=== PATIENT | male | born 1930 | race Caucasian/White ===

== ENCOUNTER → 2018-02-02 | Outpatient (CLI) | payer MEDICARE ==
[~2018-02-02] MED LIST: ASPIRIN LOW-STR81 MG PO; ASPIRIN325 MG PO; ATORVASTATIN CA20 MG PO; ATROVENT; BAKING SODA; CARDURA2 MG PO; CEFTIN250 MG PO; DOXAZOSIN; DOXAZOSIN PO; FUROSEMIDE40 MG PO; ISOSORBIDE MONO60 MG PO; LISINOPRIL5 MG PO; METOPROLOL SUCC25 MG PO; NITROGLYCERIN0.4 MG SL; OMEPRAZOLE40 MG PO; PLAVIX75 MG PO; XARELTO10 MG PO; Z.0.FUROSEMIDE20 MG PO; Z.0.LIPITOR40 MG PO; Z.0.LISINOPRIL20 MG PO; Z.0.METOPROLOL SUC10 PO; Z.0.OMEPRAZOLE20 M1 PO; Z.0.PLAVIX75 MG PO
--- NOTE | 2018-02-02 13:10 | Diagnostic Imaging Report ---
EXAM: XR CHEST 2 VIEWS DATE: 02/02/2018 12:27 PM INDICATION: Pleural plaque COMPARISON: 06/25/2014 CT chest, 07/16/2014 radiograph FINDINGS: Lines and Tubes: None Heart and Mediastinum: Heart is mildly enlarged. Sternotomy changes and aortic vascular calcifications present. Lungs and Pleura: Stable granuloma left upper lobe. Stable pleural-parenchymal scarring/calcification left lung base. Bones and Soft Tissues: No acute findings. IMPRESSION: 1. Overall stable chronic changes. Signed by: Dr. Markus Gibson MD on 02/02/2018 1:07 PM
== END ==
LOC: RAD 12:15
PROVIDERS: ATTEND Internal Medicine Pulmonary Disease
DX: J92.9 Pleural plaque without asbestos (principal)
CPT/HCPCS: 71046

== ENCOUNTER 2018-04-27 06:06 | Inpatient (IN) | payer MEDICARE ==
[~2018-04-27] VITALS: Ht 152.4 cm; Wt 62.7 kg
[2018-04-27] VITALS (19 sets, daily range): BP systolic 89–137; BP diastolic 55–84
--- OUTSIDE RECORDS SUMMARY | 2018-04-27 06:11 | XMS REPORT ---
Author Author [facility] Address Unknown Phone Unavailable Care Team Providers Care Assembler Production Line Name Role Phone BHUPINDER HOOKER Unavailable Unavailable Payers Payer Name Policy Type Policy Number Effective Date Expiration Date Problems This patient has no known problems. Allergies, Adverse Reactions, Alerts Allergy Name Allergy Type Status Severity Reaction(s) Onset Date Inactive Date Treating Clinician Comments nalbuphine HCl DA Active MO 2014-06-04 00:00:00 morphine DA Active U 2014-06-04 00:00:00 meperidine DA Active U 2014-06-04 00:00:00 Medications This patient has no known medications. Results Test Description Test Time Test Comments Text Results Atomic Results Result Comments CHEST 2 VIEWS 2018-02-02 13:05:00 [place] [address] Patient Name: MARINA MCCORD MR #: [id number] : 1930 Age/Sex: 87/M Req #: [id number] Adm Physician: Ordered by: BHUPINDER HOOKER MD Report #: [id number] Location: [facility] Room/Bed: Procedure: [id number] DX/CHEST 2 VIEWS Exam Date: 02/02/18 Exam Time: 1220 REPORT STATUS: Signed EXAM: XR CHEST 2 VIEWS DATE: 02/02/2018 12:27 PM ASHLEY CATION: Pleural plaque COMPARISON: 06/25/2014 CT chest, 07/16/2014 radiograph FINDINGS: Lines and Tubes: None Heart and Mediastinum: Heart is mildly enlarged. Sternotomy changes and aortic vascular calcifications present. Lungs and Pleura: Stable granuloma left upper lobe. Stable pleural-parenchymal scarring/calcification left lung base. Bones and Soft Tissues: No acute findings. IMPRESSION: 1. Overall stable chronic changes. Signed by: Dr. Markus Gibson MD on 02/02/2018 1:07 PM Dictated By: MARKUS GIBSON MD 1306 Transcribed By: MAIK on 02/02/18 1307 COPY TO: BHUPINDER HOOKER MD
[2018-04-27] MEDS ORDERED: ACETAMINOPHEN 1000 MG/100 ML IV STA (06:17)
[2018-04-27] MEDS: SODIUM CHLORIDE 0.9% 1000ML 1,000 ML IV ONE ×2 (06:25→07:11)
[2018-04-27] MEDS ORDERED: SODIUM CHLORIDE 0.9% 1000ML 1,000 ML ONE ×2 (06:29→10:50)
[2018-04-27] MEDS ORDERED: CEFTRIAXONE SOD 1 GM/NS 50 ML 50 ML IV ONE (06:30)
[2018-04-27 06:39] LABS: BASOPHILS % 0.2 % (0.0-1.0); HEMATOCRIT 52.1 % (38.2-49.6); LYMPHOCYTES # (AUTO) 1.1 (1.0-3.2); LYMPHOCYTES % 5.9 % (18.0-39.1); MEAN CORPUSCULAR HEMOGLOBIN 33.6 pg (28-32); MEAN CORPUSCULAR HGB CONC 34.2 g/dL (31-35); MEAN CORPUSCULAR VOLUME 98.3 fL (81-99); MONOCYTES # (AUTO) 0.6 (0.2-0.8); MONOCYTES % 3.4 % (4.4-11.3); NEUTROPHILS # (AUTO) 16.1 (2.1-6.9); NEUTROPHILS % 89.2 % (38.7-80.0); PLATELET COUNT 204 x10e3/uL (140-360); RED CELL DISTRIBUTION WIDTH 13.3 % (11.7-14.4)
[2018-04-27 06:40] LABS: HEMOGLOBIN 17.8 g/dL (14.0-18.0)
[2018-04-27] MEDS ORDERED: FERROUS SULFAT325 MG PO (06:41)
[2018-04-27] MEDS ORDERED: VALACYCLOVIR1000 MG PO (06:41)
[2018-04-27] MEDS ORDERED: DOXAZOSIN MESYLA2 MG PO (06:41)
[2018-04-27] MEDS ORDERED: OMEPRAZOLE20 M1 PO (06:41)
[2018-04-27] MEDS ORDERED: TYLENOL # 31 EA (06:43)
[2018-04-27] MEDS ORDERED: AZITHROMYCIN 500MG/NS 250 ML 250 ML IV STA (06:50)
--- NOTE | 2018-04-27 06:56 | Diagnostic Imaging Report ---
CHEST SINGLE (PORTABLE), 04/27/2018 6:14 AM Technique: CHEST SINGLE (PORTABLE) Comparison: 02/02/2018 Clinical history: Shortness of breath Findings: See Impression Impression: 1. Stable enlarged cardiomediastinal silhouette status post median sternotomy. 2. Right upper lobe consolidative opacity and patchy right basilar opacity presumably pneumonia. Recommend follow-up to document resolution. 3. Stable left pleural thickening. Signed by: Dr Parisa Stafford MD on 04/27/2018 6:53 AM
[2018-04-27] MEDS ORDERED: SODIUM CHLORIDE 0.9% 1000ML 1,000 ML IV ONE ×2 (07:00→11:00)
--- NOTE | 2018-04-27 07:00 | NUR ---
report given to daquan murphy.
--- NOTE | 2018-04-27 07:00 | NUR ---
received report from off going nurse. patient in room in stretcher. on bipap, has bilateral piv access. johns with core temp sensor and connected to bedside monitor. flu swabs collected, urine sample collected from johns tubing. er in room with patient. ordered for 0.25mg of dig ivp stat. pulled and admin as ordered. patient is awake and alert. no c/o pain at this time. skin warm and dry with blisters to left upper quad and reddness with no open to sacral area. patient follows commands and can express needs. reports he wears upper and lower dentures, lowers are reported to be at home and uppers are in place in mouth. second litre of NS hanging and 1st does of IV abt started. bed down call lightin reach. will continue to monitor.
[2018-04-27 07:04] LABS: INR 1.84; PROTHROMBIN TIME 22.7 seconds (11.9-14.5)
[2018-04-27 07:05] LABS: PARTIAL THROMBOPLASTIN TIME 34.3 seconds (23.8-35.5)
[2018-04-27 07:06] LABS: ALBUMIN 3.4 g/dL (3.5-5.0); ALBUMIN/GLOBULIN RATIO 1.6 (0.8-2.0); ANION GAP 17.7 mmol/L (8-16); CREATININE, SERUM 2.41 mg/dL (0.72-1.25); POTASSIUM 4.7 mmol/L (3.5-5.1)
[2018-04-27] MEDS ORDERED: DIGOXIN INJ 0.25 MG/ML 2 ML AMP ONE (07:09)
[2018-04-27 07:16] LABS: CLARITY,URINE CLEAR (CLEAR); COLOR,URINE YELLOW (YELLOW); KETONES,URINE NEGATIVE (NEGATIVE); LEUKOCYTE ESTERASE ,URINE NEGATIVE (NEGATIVE); NITRITE,URINE NEGATIVE (NEGATIVE); PROTEIN,URINE DIPSTICK NEGATIVE (NEGATIVE); URINE UROBILINOGEN 0.2 mg/dL (0.2 - 1)
[2018-04-27 07:17] LABS: BILIRUBIN,URINE NEGATIVE (NEGATIVE)
[2018-04-27 07:22] LABS: B-TYPE NATRIURETIC PEPTIDE2 70.8 pg/mL (0-100)
[2018-04-27] MEDS ORDERED: DIGOXIN INJ 0.25 MG/ML 2 ML AMP IV ONE (07:30)
[2018-04-27 07:32] LABS: BACTERIA,URINE RARE /HPF; EPITHELIAL CELLS,URINE RARE /LPF; RBC,URINE 0-5 /HPF (0-5); TRANSITIONAL EPI CELLS,URINE RARE; WBC,URINE (MAN) 0-5 /HPF (0-5)
[2018-04-27] MEDS ORDERED: VANCOMYCIN 1GM/NS 250 ML 250 ML IV STA (07:37)
--- NOTE | 2018-04-27 07:58 | NUR ---
family at bedside. upper dentures removed and given to family member (). johns bag with 175 ml. emptied measuring chamber and will recheck in one hour.
[2018-04-27] MEDS ORDERED: AMIODARONE HCL 150 MG/100 ML BAG IV ONE (08:00)
[2018-04-27] MEDS ORDERED: VANCOMYCIN HCL 1GM/NS 250 ML BAG IV SCH (08:15)
[2018-04-27] MEDS ORDERED: ASPIRIN 81 MG CHEW TAB PO ONE (08:15)
[2018-04-27] MEDS ORDERED: AMIODARONE HCL 100 ML IV ONE (08:15)
[2018-04-27] MEDS ORDERED: AZITHROMYCIN 500MG/SOD CHL 0.9% 250ML BAG IV SCH (08:15)
[2018-04-27] MEDS ORDERED: CEFTRIAXONE SOD 1 GRAM/0.9% SOD CHL 50ML BAG IV SCH (08:15)
[2018-04-27] MEDS ORDERED: AMIODARONE HCL 900 MG in DEXTROSE 5% 500ML 500 ML IV STA (08:17)
[2018-04-27 08:21] LABS: ABG HCO3 14 mmol/L (23-28); ABG PCO2 31 mmHg (41-51); ABG PH 7.27 (7.31-7.41); ABG PO2 506 mmHg (80-105)
[2018-04-27] MEDS ORDERED: AMIODARONE HCL 150MG 100 ML ONE (08:29)
[2018-04-27] MEDS ORDERED: AMIODARONE HCL 900 MG in DEXTROSE 5% 500ML 500 ML IV SCH ×2 (08:30→14:30)
[2018-04-27] MEDS ORDERED: SODIUM CHLORIDE 0.9% 500ML 500 ML ONE (08:45)
[2018-04-27] MEDS ORDERED: SODIUM CHLORIDE 0.9% 500ML 500 ML IV ONE (09:00)
--- NOTE | 2018-04-27 09:01 | NUR ---
25 ml urine in bedside johns bag hard container after 60 minutes
--- NOTE | 2018-04-27 09:02 | NUR ---
Dr. Jacques in ER to see patient. orders in chart.
--- NOTE | 2018-04-27 09:18 | NUR ---
consent for central line placement signed and placed into chart.
[2018-04-27] MEDS: AZITHROMYCIN 500MG/NS 250 ML 250 ML IV SCH (09:27)
--- NOTE | 2018-04-27 09:28 | NUR ---
informed IR staff that patient is consented for central line placement
[2018-04-27] MEDS ORDERED: NOREPINEPHRINE 8 MG/D5W 250 ML 250 ML ONE (09:57)
[2018-04-27] MEDS: NOREPINEPHRINE 8 MG/D5W 250 ML 250 ML IV SCH (10:12)
--- NOTE | 2018-04-27 10:22 | NUR ---
INCREASED LEVOPHED TO 10MCG/18.8MLS/HR BP - 66/50
--- NOTE | 2018-04-27 10:30 | NUR ---
PATIENT OFF BIPAP, ON VENTI MASK. O2 SATS 99-99% BUT PATIENT REPORTS FEELING SOB, RESP INCREASED TO 32-35. ER MD MADE AWARE AND DECISION TO INTUBATE MADE. PATIENT TRANSFERED TO ER1 FOR INTUBATION.
--- NOTE | 2018-04-27 10:50 | NUR ---
1050 ETOMIDATE 20MG 1051 SUCCINYCHOLINE 100MG
[2018-04-27] MEDS ORDERED: ETOMIDATE 2 MG/ML 10 ML INJ IV STA (10:55)
[2018-04-27] MEDS ORDERED: MIDAZOLAM HCL 2 MG/2 ML VIAL IV STA (10:55)
[2018-04-27] MEDS ORDERED: SUCCINYLCHOLINE CHLORIDE 20 MG/ML 10ML VIAL IV STA (10:55)
--- NOTE | 2018-04-27 10:59 | NUR ---
XRAY AT BEDSIDE FOR ET TUBE PLACEMENT.
--- NOTE | 2018-04-27 11:19 | Diagnostic Imaging Report ---
Examination: Single AP view of the chest. COMPARISON: None. INDICATION: Central line placement DISCUSSION: Lines/tubes: Right IJ catheter with tip overlying the superior vena cava. Endotracheal tube above the javy in satisfactory position. Sternotomy wires. Lungs: Multifocal pneumonia involving the right upper and lower lung. Pleura: No pleural effusion or pneumothorax. Heart and mediastinum: Mild cardiomegaly. Bones and soft tissues: No acute bony abnormalities. IMPRESSION: 1. Satisfactory right IJ placement. 2. Multifocal right lung pneumonia. Signed by: Dr. Sam Conrad M.D. on 04/27/2018 11:16 AM
--- NOTE | 2018-04-27 11:20 | NUR ---
18FR NG/OG TUBE PLACED, XRAY ORDERED FOR PLACEMENT, PATIENT TRANSPORTED TO ICU-190.
[2018-04-27] MEDS: FENTANYL CITRATE INJ 2,000 MCG in SODIUM CHLORIDE 0.9% 250ML 210 ML IV PRN (11:53)
[2018-04-27] MEDS: MIDAZOLAM HCL 25 MG in SODIUM CHLORIDE 0.9% 50ML 45 ML IV PRN ×2 (11:55→20:59)
[2018-04-27] MEDS ORDERED: SODIUM BICARBONATE 8.4% INJ 50 ML SYR IV STA (12:36)
--- NOTE | 2018-04-27 12:40 | Diagnostic Imaging Report ---
Exam: Abdominal film Clinical History: Enteric tube placement Comparison: None. DISCUSSION: Enteric tube appears midline with the distal tip is not discretely visualized due to overlying catheters. Nonobstructive bowel gas pattern. IMPRESSION: 1. Enteric tube appears midline with the distal tip is not discretely visualized due to overlying catheters. Signed by: Dr. Sam Conrad M.D. on 04/27/2018 12:37 PM
--- NOTE | 2018-04-27 12:44 | NUR ---
pt arrived to icu 190 @ 1145. intubated and mechanically ventilated. and son to bedside, assisted in verifying medical history. assessment completed and recorded. dr nails notified of new abg results, orders received and being completed. preventative skin care completed, alt pressure mattress with heal protectors, rotate q2hr. will continue to monitor. Addendum: 04/27/18 at 1424 by Renata Bhakta RN consults notified
[2018-04-27] MEDS ORDERED: PANTOPRAZOLE 40 MG 10ML VIAL IV SCH (13:00)
--- NOTE | 2018-04-27 13:26 | Consultation ---
DATE OF CONSULTATION: April 27, 2018 PULMONARY CONSULTATION Patient of Dr. Toth and Dr. Powell. Admitted through the emergency room. Became suddenly ill at approximately 3 a.m. with shaking chills. He had cough earlier in the evening. History of coronary artery disease, proximal muscle weakness, herpes zoster, recently diagnosed chronic atrial fibrillation, asbestosis pleural plaques, benign prostatic hypertrophy. ALLERGIES: HE IS ALLERGIC TO DEMEROL, NUBAIN AND MORPHINE. MEDICATIONS: At home have included Lipitor, Atrovent, valacyclovir, doxazosin, Lasix, Incruse, Ismo, lisinopril, metoprolol, Prilosec, and Xarelto. He did smoke in the past a pack a day for only 6 years. Quit over 30 years ago. He has coronary artery disease, bypass surgery with an angioplasty. He is followed by Dr. Powell. Recent chest x-ray had been clear, but this x-ray reveals a right upper lobe pneumonia. PHYSICAL EXAMINATION VITALS: Temperature 99, pulse 126 and irregular, respirations 25, blood pressure 102/75. HEENT: Head is normocephalic and atraumatic. Eyes: Extraocular movements intact. On BiPAP. LUNGS: Rales right anteriorly. HEART: Irregular rhythm. ABDOMEN: Nontender. EXTREMITIES: Nonedematous. SKIN: Rash at approximately the left T4 dermatome. IMPRESSION 1. Severe community-acquired pneumonia with sepsis, right upper in an elderly patient. 2. Atrial fibrillation with rapid response. PLAN: Continue broad-spectrum antibiotics pending the results of cultures. BiPAP as needed. Inhaled bronchodilators. Avoid beta-2 agonist. Thank you for this kind referral. Job#: [id number] FREDY
[2018-04-27] MEDS: PANTOPRAZOLE 40 MG 10ML VIAL IV SCH (13:35)
--- NOTE | 2018-04-27 13:45 | Consultation ---
DATE OF CONSULTATION: April 27, 2018 PULMONARY CONSULTATION ADDENDUM Mr. Sky's chest x-ray on February 09, 2018, was clear. This was taken at another institution. Job#: [id number] RI
[2018-04-27 14:44] LABS: ABG PCO2 26 mmHg (41-51); ABG PH 7.19 (7.31-7.41); ABG PO2 80 mmHg (80-105)
[2018-04-27 14:45] LABS: ABG HCO3 10 mmol/L (23-28)
[2018-04-27] MEDS ORDERED: MIDAZOLAM HCL 2 MG/2 ML VIAL ONE (15:15)
[2018-04-27] MEDS ORDERED: ETOMIDATE 2 MG/ML 10 ML INJ IV ONE (15:15)
[2018-04-27] MEDS ORDERED: SUCCINYLCHOLINE CHLORIDE 20 MG/ML 10ML VIAL ONE (15:15)
[2018-04-27 15:20] LABS: CREATINE KINASE MB 7.3 ng/mL (0-5.0)
--- NOTE | 2018-04-27 15:42 | NUR ---
dr jin aware of cardiac markers. dr joya aware of cardiac markers. dr donalsdon notified of new consult. pt vs stable no s/s distress. family at bedside.
--- NOTE | 2018-04-27 17:31 | Consultation ---
DATE OF CONSULTATION: April 27, 2018 CARDIOLOGY CONSULTATION Thank you for asking me to see Mr. Sky again in consultation. He is a very elderly 87-year-old man known to me for many years. CHIEF COMPLAINT: He presented to the emergency room with the complaint of shaking chills and persistent dyspnea. HISTORY OF PRESENT ILLNESS: Patient had back pain for several days and began to notice a rash on his left side over the weekend. By Wednesday, he developed shaking chills and was brought to the hospital. PAST MEDICAL HISTORY: Long and complex with advanced COPD. He had his first myocardial infarction in 1970, a coronary bypass in 1991. His last cardiac procedure was stenting of the right coronary in June 2013. He has had renal insufficiency, called mild in the past but seems to be progressive, chronic atrial fibrillation. RECENT HOME MEDICATIONS 1. Omeprazole 20 mg daily. 2. Furosemide 20 mg daily. 3. Atorvastatin 40 mg daily. 4. Ellipta inhaler daily. 5. Xarelto 20 mg daily. 6. Isosorbide. 7. Lisinopril 5 mg daily. 8. Metoprolol 50 mg twice a day. 9. Doxazosin 2 mg daily. PERSONAL/SOCIAL HISTORY: He does not smoke. 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 FAMILY HISTORY: Father at 86. Mother at 64 with myocardial infarction. He had one sister who of [place]. PHYSICAL EXAMINATION GENERAL: At this time shows a very elderly white man who is sedated and on ventilator. HEENT: Otherwise unremarkable. THORAX: There is healed midline sternotomy. HEART: Sounds S1, S2 are equal but irregularly irregular. There is faint 1/6 systolic murmur. LUNGS: Have crackles. ABDOMEN: Protuberant. EXTREMITIES: No cyanosis, clubbing or edema. CHEST: Shows pustular lesions suggestive of shingles PERTINENT LABORATORY STUDIES: BUN 66, creatinine 2.41. White count 18,000. INR 1.84. Lactic acid is elevated at 26. His initial cardiac enzymes were normal but repeat shows elevations with CK 217, MB 7.3, troponin 1.03. Bilirubin are 1.6. Chest x-ray suggests right side pneumonia. ASSESSMENTS 1. Pneumonia. 2. Severe and advanced chronic obstructive pulmonary disease. 3. Chronic atrial fibrillation. 4. Longstanding coronary artery disease with previous coronary artery bypass graft surgery and stenting. 5. Shingles. 6. Worsening renal insufficiency. PLAN: Agree with ventilator and antibiotics and supportive care. I have discussed with his at bedside. Thank you for asking me to see him in consultation. Job#: [id number] TA cc:BHUPIDNER HOOKER MD,
[2018-04-27 18:29] LABS: ABG HCO3 13 mmol/L (23-28); ABG PCO2 28 mmHg (41-51); ABG PH 7.27 (7.31-7.41); ABG PO2 145 mmHg (80-105)
[2018-04-27] MEDS ORDERED: ATORVASTATIN 20 MG TAB PO SCH (21:00)
[2018-04-27] MEDS: ATORVASTATIN 40 MG TAB PO SCH (21:37)
[2018-04-27] MEDS: VALACYCLOVIR HCL 500 MG TAB PO SCH (21:38)
[2018-04-27] MEDS: IPRATROPIUM BROMIDE 0.02% 2.5 ML NEB NEB SCH (23:20)
[2018-04-28] VITALS (38 sets, daily range): BP systolic 84–137; BP diastolic 41–88
[2018-04-28 00:28] LABS: CREATINE KINASE MB 4.8 ng/mL (0-5.0)
[2018-04-28] MEDS: MIDAZOLAM HCL 25 MG in SODIUM CHLORIDE 0.9% 50ML 45 ML IV PRN ×3 (03:00→18:07)
[2018-04-28 05:28] LABS: ANION GAP 11.6 mmol/L (8-16); CALCIUM 8.1 mg/dL (8.4-10.2); CREATININE, SERUM 1.41 mg/dL (0.72-1.25); POTASSIUM 4.6 mmol/L (3.5-5.1)
[2018-04-28 05:52] LABS: BASOPHILS % 0.1 % (0.0-1.0); HEMATOCRIT 43.2 % (38.2-49.6); LYMPHOCYTES # (AUTO) 0.6 (1.0-3.2); MEAN CORPUSCULAR HEMOGLOBIN 32.3 pg (28-32); MEAN CORPUSCULAR HGB CONC 33.3 g/dL (31-35); MEAN CORPUSCULAR VOLUME 96.9 fL (81-99); MONOCYTES # (AUTO) 0.8 (0.2-0.8); NEUTROPHILS # (AUTO) 18.9 (2.1-6.9); NEUTROPHILS % 92.2 % (38.7-80.0); PLATELET COUNT 155 x10e3/uL (140-360); RED BLOOD COUNT 4.46 x10e6/uL (4.3-5.7); RED CELL DISTRIBUTION WIDTH 13.4 % (11.7-14.4)
[2018-04-28 05:54] LABS: CREATINE KINASE MB 3.7 ng/mL (0-5.0)
[2018-04-28 06:01] LABS: HEMOGLOBIN 14.4 g/dL (14.0-18.0)
--- NOTE | 2018-04-28 06:42 | Diagnostic Imaging Report ---
CHEST SINGLE (PORTABLE), 04/28/2018 5:00 AM Technique: CHEST SINGLE (PORTABLE) Comparison: Previous day Clinical history: Pneumonia Findings: See Impression Impression: 1. Lines/Tubes: ET tube projects to the distal trachea. Subdiaphragmatic NG tube with tip not imaged; side port appears near the GE junction. Right IJ central venous catheter near the cavoatrial junction. Median sternotomy wires. 2. Persistent patchy predominantly right opacities in keeping with infection. Stable small left effusion/pleural thickening. Signed by: Dr Parisa Stafford MD on 04/28/2018 6:38 AM
[2018-04-28] MEDS: IPRATROPIUM BROMIDE 0.02% 2.5 ML NEB NEB SCH ×3 (06:58→18:55)
--- NOTE | 2018-04-28 07:00 | NUR ---
BEDSIDE REPORT RECVD. ASSESSMENT COMPLETED AND RECORDED. VSS AND RECORDED. NO FAMILY PRESENT. SEDATION VACATION COMPLETED, PT IS FOLLOWING SIMPLE INSTRUCTIONS OFF SEDATION. NODS TO UNDERSTANDING OF POC.
[2018-04-28] MEDS: VANCOMYCIN 1GM/NS 250 ML 250 ML IV SCH (07:01)
[2018-04-28] MEDS: VALACYCLOVIR HCL 500 MG TAB PO SCH ×2 (07:01→21:45)
[2018-04-28] MEDS: CEFTRIAXONE SOD 1 GM/NS 50 ML 50 ML IV SCH (09:00)
[2018-04-28] MEDS: PANTOPRAZOLE 40 MG 10ML VIAL IV SCH (09:00)
--- NOTE | 2018-04-28 09:00 | NUR ---
FAMILY AT BEDSIDE. PT AND FAMILY UPDATED ON CURRENT STATUS. DR HOOKER MAKING ROUNDS AND CHANGES ORDERED.
[2018-04-28] MEDS: NOREPINEPHRINE 8 MG/D5W 250 ML 250 ML IV SCH (10:00)
[2018-04-28] MEDS: AZITHROMYCIN 500MG/NS 250 ML 250 ML IV SCH (10:10)
[2018-04-28] MEDS: CALAMINE TP PRN (10:11)
[2018-04-28] MEDS: PRAMOXINE TP PRN (10:11)
[2018-04-28] MEDS: CAMPHOR TP PRN (10:11)
[2018-04-28 10:18] LABS: ABG HCO3 15 mmol/L (23-28); ABG PCO2 30 mmHg (41-51); ABG PO2 207 mmHg (80-105)
--- NOTE | 2018-04-28 11:00 | NUR ---
NO CHANGES IN CONDITION OR CARE. VSS
[2018-04-28 12:51] LABS: CREATINE KINASE MB 3.9 ng/mL (0-5.0)
[2018-04-28] MEDS ORDERED: VALACYCLOVIR HCL 500 MG TAB PO SCH (14:00)
--- NOTE | 2018-04-28 14:15 | NUR ---
Nutrition Intervention Note RD Recommendation(s) for Physician: -Rec continuous TF with Vital AF 1.2 @50mL/hr, providing 1440kcal, 90g protein, and 973mL water. -Rec minimal of 30mL free water flushes q 4hr; additional water per MD discretion -Monitor daily labs, GI tolerance, and weight Plan of Care: RD following, monitoring for tolerance and adequacy, TF rec Nutrition reason for involvement: RN consult intubated RD Assessment 04/28 Chart reviewed. 87yo M, who is admitted for chill and dyspnea. Pt is currently intubated and on vent. Pressor is off at this time. RD consulted for TF rec. Visited pt in the room. presented on bedside to provide hx. 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 Reported UBW ~142lbs. TF initiated with Vital HP @30mL/hr. Communicated RD recommendation to CASSIUS Price. Will continue to monitor and follow. Principal Problems/Diagnoses: 1. Severe community-acquired pneumonia with sepsis, right upper in an elderly patient. 2. Atrial fibrillation with rapid response. PMH: COPD, MN, Afib, renal insufficiency, BPH, HLD GI: abdomen soft, flat, non-tender, flatus present Skin: shingles present Labs: (04/28) Na 134 L, BUN 45 H, Creatinine 1.41 H, Ca 8.1 L Meds: IV abx, protonix, versed Ht: 66in Wt: 145.37lb BMI: 23.5kg/m2 IBW: 142lb Malnutrition Evaluation (04/28) The patient does not meet criteria for a specified degree of malnutrition at this time. Will re-evaluate at follow-up as appropriate. Nutrition Prescription (Diet Order): Vital HP @30mL/hr Estimated Nutritional Needs: Calories: 1320 1650kcal (20-25kcal/kg/d) Weight used : current BW Protein: 86-132g (1.3-2g/kg/d) Weight used: current BW Diet Adequacy: Not meeting calorie needs, Not meeting protein needs Diet Education Needs Assessment: Diet education not indicated. Nutrition Care Level: mod (new TF) Nutrition Diagnosis: Inadequate oral intake related to current medical status as evidenced by pt requiring EN as main source of nutrition. Goal: Patient will meet 75-100% of estimated needs by follow up Progress: N/A Interventions: Composition, Rate, Route, IVF Monitoring/Evaluation: Total energy intake, Total protein intake, Formula/Solution, IVF, Prescription medication, Weight change Signed: Carlota Bustillo MS, RD, LD
--- NOTE | 2018-04-28 15:03 | Consultation ---
DATE OF CONSULTATION: INFECTIOUS DISEASE CONSULTATION REASON FOR CONSULTATION: Pneumonia, recommendation of antibiotic. HISTORY OF PRESENT ILLNESS: This is a patient who is a very pleasant 87-year-old white male who has history of herpes zoster affecting his chest wall on the left. He saw Dr. Jacques. He was given oral acyclovir, but the patient became worse with shortness of breath and fever and chills, came to the emergency room where he was intubated. He was found to have pneumonia. Infectious Disease was consulted. The patient is intubated. I have met with the , discussed with her the case and discussed earlier with Dr. Jacques. This is a patient who is an elderly gentleman as mentioned above who has history of chronic atrial fibrillation, asbestosis, pleural plaque, benign prostatic hypertrophy, chronic kidney disease, comes into the hospital with shortness of breath. He had to be intubated. Apparently he has been sick for a few days after his most recent episode of shingles. The patient does have history of COPD, myocardial infarction in 1970, CABG in 1991. He had a cardiac catheterization done in June 2013. The patient came to the emergency room where he was intubated and sedated. I was asked to see him. MEDICATION AT HOME: Omeprazole 20 mg daily, furosemide 20 mg daily, atorvastatin 40 daily, Ellipta inhaler, Xarelto 20 mg daily, lisinopril 5 mg daily, metoprolol 50 twice a day and doxazosin. SOCIAL HISTORY: There is no smoking, drug abuse, alcohol abuse. FAMILY HISTORY: Hypertension. REVIEW OF SYSTEMS HEENT: Negative. PULMONARY: Negative. CARDIAC: Negative. : Negative. IMPRESSION 1. Pneumonia. 2. Herpes zoster. 3. Chronic kidney disease. Will put on vancomycin, Rocephin and acyclovir. Will follow with you. Job#: [id number] EV
--- NOTE | 2018-04-28 17:43 | NUR ---
DR SANCHEZ MAKING ROUNDS, UPDATED ON STATUS. ORDERS RECVD AND BEING COMPLETED.
[2018-04-28] MEDS: RIVAROXABAN 10 MG TABLET PO SCH (18:06)
[2018-04-28 21:03] LABS: CREATINE KINASE MB 3.4 ng/mL (0-5.0)
[2018-04-28] MEDS: ATORVASTATIN 40 MG TAB PO SCH (21:45)
[2018-04-29] VITALS (23 sets, daily range): BP systolic 102–159; BP diastolic 55–103
[2018-04-29] MEDS: IPRATROPIUM BROMIDE 0.02% 2.5 ML NEB NEB SCH ×4 (02:40→19:00)
[2018-04-29] MEDS: FENTANYL CITRATE INJ 2,000 MCG in SODIUM CHLORIDE 0.9% 250ML 210 ML IV PRN (03:40)
[2018-04-29 04:54] LABS: BASOPHILS % 0.1 % (0.0-1.0); EOSINOPHILS % 0.1 % (0.0-6.0); HEMATOCRIT 40.6 % (38.2-49.6); HEMOGLOBIN 13.5 g/dL (14.0-18.0); LYMPHOCYTES # (AUTO) 0.5 (1.0-3.2); LYMPHOCYTES % 2.8 % (18.0-39.1); MEAN CORPUSCULAR HEMOGLOBIN 32.4 pg (28-32); MEAN CORPUSCULAR HGB CONC 33.3 g/dL (31-35); MEAN CORPUSCULAR VOLUME 97.4 fL (81-99); MONOCYTES # (AUTO) 0.5 (0.2-0.8); MONOCYTES % 3.1 % (4.4-11.3); NEUTROPHILS # (AUTO) 15.1 (2.1-6.9); PLATELET COUNT 135 x10e3/uL (140-360); RED BLOOD COUNT 4.17 x10e6/uL (4.3-5.7); RED CELL DISTRIBUTION WIDTH 13.6 % (11.7-14.4)
[2018-04-29 05:11] LABS: ANION GAP 11.8 mmol/L (8-16); CALCIUM 8.3 mg/dL (8.4-10.2); CREATININE, SERUM 1.34 mg/dL (0.72-1.25); POTASSIUM 4.8 mmol/L (3.5-5.1)
[2018-04-29] MEDS: VANCOMYCIN 1GM/NS 250 ML 250 ML IV SCH (06:19)
--- NOTE | 2018-04-29 06:46 | Diagnostic Imaging Report ---
CHEST SINGLE (PORTABLE), 04/29/2018 7:00 AM Technique: CHEST SINGLE (PORTABLE) Comparison: Previous day Clinical history: Pneumonia Findings: See Impression. Stable cardiac silhouette, bones, soft tissues. Impression: 1. Lines/Tubes: Stable ET tube over the distal trachea, right IJ central venous catheter, subdiaphragmatic NG tube. Note the side port of the NG tube projects over the distal esophagus. Median sternotomy are. 2. Stable right lung predominant opacities in keeping with pneumonia. Stable small left effusion/pleural thickening. Signed by: Dr Parisa Stafford MD on 04/29/2018 6:43 AM
--- NOTE | 2018-04-29 08:32 | NUR ---
Moved Et-tube from right to left Cuff pressure is at 22 oral care was performed
[2018-04-29] MEDS: NOREPINEPHRINE 8 MG/D5W 250 ML 250 ML IV SCH (10:00)
[2018-04-29 10:01] LABS: ABG HCO3 15 mmol/L (23-28); ABG PCO2 26 mmHg (41-51); ABG PH 7.36 (7.31-7.41); ABG PO2 214 mmHg (80-105)
[2018-04-29] MEDS: VALACYCLOVIR HCL 500 MG TAB PO SCH ×2 (10:18→20:16)
[2018-04-29] MEDS: PANTOPRAZOLE 40 MG 10ML VIAL IV SCH (10:18)
[2018-04-29] MEDS: CEFTRIAXONE SOD 1 GM/NS 50 ML 50 ML IV SCH (10:18)
[2018-04-29] MEDS: LEVALBUTEROL HCL SOLN NEBU 0.63 MG/3 ML NEB INH SCH ×4 (10:20→19:00)
[2018-04-29] MEDS: AZITHROMYCIN 500MG/NS 250 ML 250 ML IV SCH (10:31)
--- NOTE | 2018-04-29 10:35 | NUR ---
paged Dr. Powell to report increased HR 110-130s BP 160/92. waiting for return call for further orders
[2018-04-29] MEDS ORDERED: DIGOXIN INJ 0.25 MG/ML 2 ML AMP IV ONE ×2 (11:00→17:15)
--- NOTE | 2018-04-29 11:00 | NUR ---
Patient is in a contact room for shingles. Per Dr. Donaldson, the shingles are localized and not disseminated. Per hospital policy, airborne isolation is required for patient with disseminated shingles. Protocol order for airborne precautions d/c'd per telephone order from dr. donaldson. Patient remains on contact per ID.
--- NOTE | 2018-04-29 14:37 | NUR ---
CASE MANAGEMENT INITIAL ASSESSMENT Regional Service Manager to bedside to discuss plan of care with patient/family. CM/SW role and care transitions discussed. Anticipated discharge plan discussed along with duration of care. CM/SW discussed patients right to make decisions in care. CM/SW work hours given. Patient lives: Admit/Transfer: ER Hospital/ER visits since last admit:NONE POA/Emergency contact: JOSÉ ANTONIO MCCORD [phone] Current/Previous Home Health: NONE PCP/Follow-up Care: DR AMEZQUITA Current/Previous DME: 02 Medications (referring to index hospitalization or the first time you were in the hospital) a. Were changes made in your medications when you were in the hospital on [date of index hospitalization]? Yes No Not sure Explain: Note: If no or not sure, please skip to question d b. Did you understand the changes? Yes No Explain: c. Were you able to obtain your new medications right away? Yes No n/a SNF only Explain: d. Were you able to take your medications like the doctor wanted you to? Yes No Explain: e. Did the hospital give you an accurate, easy to understand list of medications when you left? Yes No n/a SNF only Explain: Scale of 1-10 how comfortable does patient feel with disease management in outpatient settin Other Services: NONE Employment Status: RETIRED Areas of Concerns: TOO EARLY TO KNOW PER Referral Needs: SNF VS HOME WITH HOME HEALTH Education Needs: F/U APPTS IMM/TRACY given and signed (if applicable): IMM ON ADMIT Goal for discharge:TO DC HOME CM/SW left business card at the bedside with contact information. Name and number was also written on the patients whiteboard. Patient verbalized understanding of discussion. CM will follow-up with ongoing discharge and transition of care needs.
[2018-04-29] MEDS: RIVAROXABAN 10 MG TABLET PO SCH (17:00)
--- NOTE | 2018-04-29 19:00 | NUR ---
Bedside report received from Tara HAMMONDS. Pt received resting in bed with eyes open, AAOx3 and following commands, no signs of distress noted at this time, pt reports no pain or discomfort at this time, SPO2% 100% RR 21. Care plan reviewed. Per report 's aware of pts HR/rhythm up to 130 bpm and pt received 2 doses of digoxin (per report). Addendum: 04/29/18 at 2017 by Mikayla Daniels RN Additional information received during report: aware pt NGT was removed with extubation and pt is NPO. Speech therapy to see pt on 04/30/18.
[2018-04-29] MEDS: ATORVASTATIN 40 MG TAB PO SCH (20:16)
[2018-04-30] VITALS (21 sets, daily range): BP systolic 137–183; BP diastolic 64–97
[2018-04-30] MEDS: IPRATROPIUM BROMIDE 0.02% 2.5 ML NEB NEB SCH ×4 (01:00→19:00)
[2018-04-30] MEDS: LEVALBUTEROL HCL SOLN NEBU 0.63 MG/3 ML NEB INH SCH ×4 (01:00→19:00)
[2018-04-30 05:25] LABS: BASOPHILS % 0.1 % (0.0-1.0); HEMATOCRIT 39.3 % (38.2-49.6); HEMOGLOBIN 13.7 g/dL (14.0-18.0); LYMPHOCYTES # (AUTO) 0.4 (1.0-3.2); LYMPHOCYTES % 2.2 % (18.0-39.1); MEAN CORPUSCULAR HEMOGLOBIN 33.3 pg (28-32); MEAN CORPUSCULAR HGB CONC 34.9 g/dL (31-35); MEAN CORPUSCULAR VOLUME 95.6 fL (81-99); MONOCYTES # (AUTO) 0.6 (0.2-0.8); MONOCYTES % 3.5 % (4.4-11.3); NEUTROPHILS # (AUTO) 15.6 (2.1-6.9); NEUTROPHILS % 92.6 % (38.7-80.0); PLATELET COUNT 136 x10e3/uL (140-360); RED BLOOD COUNT 4.11 x10e6/uL (4.3-5.7); RED CELL DISTRIBUTION WIDTH 13.3 % (11.7-14.4)
[2018-04-30 05:53] LABS: ANION GAP 13.1 mmol/L (8-16); CALCIUM 8.9 mg/dL (8.4-10.2); CREATININE, SERUM 1.23 mg/dL (0.72-1.25); POTASSIUM 5.1 mmol/L (3.5-5.1)
[2018-04-30] MEDS: VANCOMYCIN 1GM/NS 250 ML 250 ML IV SCH (06:04)
--- NOTE | 2018-04-30 06:39 | Diagnostic Imaging Report ---
CHEST SINGLE (PORTABLE), 04/30/2018 5:00 AM Technique: CHEST SINGLE (PORTABLE) Comparison: Previous day Clinical history: Extubation, right upper lobe pneumonia Findings: See Impression. Stable cardiac silhouette, bones, soft tissues. Impression: 1. Lines/Tubes: Removal of the ET tube, NG tube. Stable right IJ central venous catheter. Median sternotomy wires. 2. Stable right lung predominant opacities in keeping with pneumonia. Central vascular congestion. 3. Stable small left effusion/pleural thickening. Signed by: Dr Parisa Stafford MD on 04/30/2018 6:35 AM
[2018-04-30 07:32] LABS: LYMPHOCYTES % (MANUAL) 5 % (19-48); MONOCYTES % (MANUAL) 5 % (3.4-9.0); NEUTROPHILS % (MANUAL) 90 % (40-74); PLATELET ESTIMATE ADEQUATE; PLATELET MORPHOLOGY COMMENT NORMAL; RBC MORPHOLOGY COMMENT NORMAL
[2018-04-30] MEDS: CEFTRIAXONE SOD 1 GM/NS 50 ML 50 ML IV SCH (10:00)
[2018-04-30] MEDS: LISINOPRIL 2.5 MG TAB PO SCH (10:00)
[2018-04-30] MEDS: NOREPINEPHRINE 8 MG/D5W 250 ML 250 ML IV SCH (10:00)
[2018-04-30] MEDS: AZITHROMYCIN 500MG/NS 250 ML 250 ML IV SCH (10:00)
[2018-04-30] MEDS: VALACYCLOVIR HCL 500 MG TAB PO SCH ×2 (10:00→21:02)
[2018-04-30] MEDS: PANTOPRAZOLE 40 MG 10ML VIAL IV SCH (10:00)
[2018-04-30] MEDS: METOPROLOL SUCCINATE 25 MG TAB XL PO SCH ×2 (10:00→17:34)
[2018-04-30 14:08] LABS: ABG PH 7.38 (7.31-7.41)
[2018-04-30 14:09] LABS: ABG HCO3 13 mmol/L (23-28); ABG PCO2 23 mmHg (41-51); ABG PO2 114 mmHg (80-105)
--- NOTE | 2018-04-30 15:00 | Progress Note ---
DATE: SUBJECTIVE: Mr. Sky is a little bit confused today. No new problems. REVIEW OF SYSTEMS: He is confused. LABORATORY DATA: His white count is 16.78, hemoglobin 13.7. His sodium is 135, potassium 5.1, creatinine 1.23. Apparently, he has not been taking valacyclovir. I was not notified until today because the patient apparently was n.p.o., but today it was started. PHYSICAL EXAMINATION GENERAL: He is currently alert, confused, does not seem to be in acute distress. VITAL SIGNS: Stable. Afebrile. HEENT: Normocephalic. NECK: Supple. CHEST: Clear bilateral. COR: S1, S2. No S3 or S4. ABDOMEN: Soft. SKIN: No rashes. There is erythema. There is no , started to close in cluster. IMPRESSION 1. Sepsis on admission, seems clinically stable. 2. Altered mental status. 3. Encephalopathy, probably multifactorial. 4. Herpes zoster. PLAN 1. The patient is currently on Atrovent, vancomycin IV, azithromycin IV, ceftriaxone IV, and valacyclovir p.o. We will follow. 2. Altered mental status. I ask for ABG and to notify pulmonary with results. Job#: [id number] BUSTER
[2018-04-30] MEDS: BALSAM PERU/CASTOR OIL 60 GM OINT...G. TP SCH (17:07)
[2018-04-30] MEDS: RIVAROXABAN 10 MG TABLET PO SCH (17:34)
[2018-04-30] MEDS: ATORVASTATIN 40 MG TAB PO SCH (21:02)
[2018-05-01] VITALS (20 sets, daily range): BP systolic 99–176; BP diastolic 45–96
[2018-05-01] MEDS: IPRATROPIUM BROMIDE 0.02% 2.5 ML NEB NEB SCH ×4 (02:05→18:36)
[2018-05-01] MEDS: LEVALBUTEROL HCL SOLN NEBU 0.63 MG/3 ML NEB INH SCH ×4 (02:05→18:36)
[2018-05-01] MEDS: VANCOMYCIN 1GM/NS 250 ML 250 ML IV SCH (06:22)
[2018-05-01] MEDS: BALSAM PERU/CASTOR OIL 60 GM OINT...G. TP SCH ×2 (09:01→18:12)
[2018-05-01] MEDS: PANTOPRAZOLE 40 MG 10ML VIAL IV SCH (09:06)
[2018-05-01] MEDS: CEFTRIAXONE SOD 1 GM/NS 50 ML 50 ML IV SCH (09:06)
[2018-05-01] MEDS: AZITHROMYCIN 500MG/NS 250 ML 250 ML IV SCH (09:06)
[2018-05-01] MEDS: VALACYCLOVIR HCL 500 MG TAB PO SCH ×2 (09:07→21:00)
[2018-05-01] MEDS: LISINOPRIL 2.5 MG TAB PO SCH (09:07)
[2018-05-01] MEDS: METOPROLOL SUCCINATE 25 MG TAB XL PO SCH ×2 (09:07→18:28)
[2018-05-01] MEDS: NOREPINEPHRINE 8 MG/D5W 250 ML 250 ML IV SCH (10:00)
--- NOTE | 2018-05-01 14:29 | Progress Note ---
DATE: INFECTIOUS DISEASE PROGRESS NOTE SUBJECTIVE: Mr. Michele is doing better today. He is more alert, lying in bed comfortable. He has no complaints. His is at the bedside. REVIEW OF SYSTEMS: Otherwise unremarkable. PHYSICAL EXAMINATION GENERAL: He is currently alert and oriented, does not seem to be in acute distress. VITALS SIGNS: Stable, afebrile. HEENT: Normocephalic. NECK: Supple. CHEST: Clear bilaterally. CARDIAC: S1, S2. No murmur. ABDOMEN: Soft. Bowel sounds are present. No tenderness or hepatosplenomegaly. SKIN: The rash seems to be crusting and healing. IMPRESSION AND PLAN 1. Herpes zoster improving affecting the chest wall. 2. Pneumonia community-acquired, probably component of aspiration. Patient has herpes zoster and probably was not able to take a deep breath. He clinically looks much better. 3. Leukocytosis. Recheck CBC with differential. 4. There is a trend of the platelet going down. We will keep an eye on it. 5. Chronic kidney disease seems to be stable. Creatinine 1.23. The plan is to finish 7 days of valacyclovir. He is on azithromycin for 5 days total, Rocephin for 8 days total. On discharge planning PT and OT. Job#: [id number] TAINA
[2018-05-01] MEDS: RIVAROXABAN 10 MG TABLET PO SCH (18:28)
--- NOTE | 2018-05-01 19:30 | NUR ---
Received patient hemodynamically stable in bed, alert and oriented, post indwelling urinary catheter removal at 6pm. Assisted to the bedside commode for a bowel movement and back to bed. Tolerated well. Encouraged to urinate if possible within the first 6 hours post catheter removal.
[2018-05-01] MEDS: ATORVASTATIN 40 MG TAB PO SCH (21:00)
[2018-05-02] VITALS (22 sets, daily range): BP systolic 115–174; BP diastolic 56–108
[2018-05-02] MEDS: IPRATROPIUM BROMIDE 0.02% 2.5 ML NEB NEB SCH ×4 (01:00→20:15)
[2018-05-02] MEDS: LEVALBUTEROL HCL SOLN NEBU 0.63 MG/3 ML NEB INH SCH ×4 (01:00→20:15)
--- NOTE | 2018-05-02 01:00 | NUR ---
Patient passed 300 mls of urine via urinal, vitals stable
--- NOTE | 2018-05-02 04:30 | NUR ---
Patient assisted to the bedside commode for a bowel movement and back to bed. Tolerated well. Allevyn dressing changed, soiled linens changed. Settled comfortably in bed, vitals stable
[2018-05-02] MEDS: VANCOMYCIN 1GM/NS 250 ML 250 ML IV SCH (05:22)
--- NOTE | 2018-05-02 07:00 | NUR ---
bedside report recvd. assessment completed and recorded. pt verbalizes understanding and consent of current poc.
--- NOTE | 2018-05-02 07:09 | NUR ---
patient handed over stable
[2018-05-02] MEDS: LISINOPRIL 2.5 MG TAB PO SCH (08:18)
[2018-05-02] MEDS: CEFTRIAXONE SOD 1 GM/NS 50 ML 50 ML IV SCH (08:18)
[2018-05-02] MEDS: PANTOPRAZOLE 40 MG 10ML VIAL IV SCH (08:18)
[2018-05-02] MEDS: VALACYCLOVIR HCL 500 MG TAB PO SCH ×2 (08:19→21:21)
[2018-05-02] MEDS: BALSAM PERU/CASTOR OIL 60 GM OINT...G. TP SCH ×2 (08:19→17:34)
[2018-05-02] MEDS: CAMPHOR TP PRN (08:19)
[2018-05-02] MEDS: CALAMINE TP PRN (08:19)
[2018-05-02] MEDS: METOPROLOL SUCCINATE 25 MG TAB XL PO SCH ×2 (08:19→17:34)
[2018-05-02] MEDS: PRAMOXINE TP PRN (08:19)
[2018-05-02] MEDS: AZITHROMYCIN 500MG/NS 250 ML 250 ML IV SCH (09:51)
--- NOTE | 2018-05-02 16:38 | NUR ---
Nutrition Intervention Note RD Recommendation(s) for Physician: - Continue low sodium diet as ordered; diet texture per PERCUSSION INSTRUMENT TUNER rec Plan of Care: RD following, monitoring for tolerance and adequacy Nutrition reason for involvement: Follow up RD Assessment 05/02 Pt was discussed during AM rounds. No chemistry labs since 04/30. Extubated on 04/30. Pt was awake, alert and in no acute distress. Visited pt in the room. Pt tolerated current diet with 100% recorded meal intake. No GI complains noted. LBM 05/02. Pt denied any chewing difficulty. Pt reported having trouble swallowing for a while. PERCUSSION INSTRUMENT TUNER saw pt today and rec MBS. Will continue to monitor and follow. 04/28 Chart reviewed. 87yo M, who is admitted for chill and dyspnea. Pt is currently intubated and on vent. Pressor is off at this time. RD consulted for TF rec. Visited pt in the room. presented on bedside to provide hx. 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 Reported UBW ~142lbs. TF initiated with Vital HP @30mL/hr. Communicated RD recommendation to CASSIUS Price. Will continue to monitor and follow. Principal Problems/Diagnoses: 1. Severe community-acquired pneumonia with sepsis, right upper in an elderly patient. 2. Atrial fibrillation with rapid response. PMH: COPD, [place], Afib, renal insufficiency, BPH, HLD GI: abdomen soft, round, non-tender, flatus present Skin: shingles present Labs: (05/02) reviewed (04/28) Na 134 L, BUN 45 H, Creatinine 1.41 H, Ca 8.1 L Meds: abx, protonix Ht: 66in Wt: 145.37lb 04/27, 134lb -05/02 (inaccurate weight taken?) BMI: 23.5kg/m2 IBW: 142lb Malnutrition Evaluation (04/28) The patient does not meet criteria for a specified degree of malnutrition at this time. Will re-evaluate at follow-up as appropriate. Nutrition Prescription (Diet Order): low sodium Estimated Nutritional Needs: Calories: 1320 1650kcal (20-25kcal/kg/d) Weight used: current BW Protein: 86-132g (1.3-2g/kg/d) Weight used: current BW Diet Adequacy: meeting calorie needs, meeting protein needs Diet Education Needs Assessment: Diet education not indicated. Nutrition Care Level: low Nutrition Diagnosis: None Goal: Patient will meet 75-100% of estimated needs by follow up Progress: Goal met Interventions: General healthful diet Monitoring/Evaluation: Total energy intake, Total protein intake, diet, Weight change Signed: Carlota Bustillo MS, RD, LD
[2018-05-02] MEDS: RIVAROXABAN 10 MG TABLET PO SCH (17:34)
--- NOTE | 2018-05-02 18:15 | NUR ---
PATIENT ARRIVED TO ROOM 294, PATIENT AND FAMILY ORIENTED TO ROOM AND POLICIES.
--- NOTE | 2018-05-02 18:16 | NUR ---
report called to [facility], pt with family at bedside w/ telemetry transferred via bed. tolerates well.
--- NOTE | 2018-05-02 19:46 | NUR ---
PT IS RESTING IN BED. NO RESPIRATORY DISTRESS NOTED. BED IN THE LOWEST POSITION, LOCKED, AND CALL LIGHT WITHIN REACH. WILL CONTINUE TO MONITOR.
--- NOTE | 2018-05-02 20:03 | NUR ---
REPORT GIVEN TO ONCOMING NURSE. PATIENT IS RESTING IN BED. NO ACUTE DISTRESS NOTED. CALL LIGHT WITHIN REACH. BED IN THE LOWEST POSITION.
[2018-05-02] MEDS: ATORVASTATIN 40 MG TAB PO SCH (21:21)
[2018-05-03] VITALS (7 sets, daily range): BP systolic 128–159; BP diastolic 62–97
[2018-05-03] MEDS: LEVALBUTEROL HCL SOLN NEBU 0.63 MG/3 ML NEB INH SCH ×4 (00:30→20:00)
[2018-05-03] MEDS: IPRATROPIUM BROMIDE 0.02% 2.5 ML NEB NEB SCH ×4 (00:30→20:00)
--- NOTE | 2018-05-03 05:16 | NUR ---
PER DR BIA SON TROUGH. WILL CONTINUE TO MONITOR.
[2018-05-03] MEDS ORDERED: SODIUM CHLORIDE 0.9% 250ML 250 ML ONE (06:42)
[2018-05-03] MEDS: VANCOMYCIN 1GM/NS 250 ML 250 ML IV SCH (06:47)
--- NOTE | 2018-05-03 06:51 | NUR ---
NOTIFY DR HWANG OF [facility] TROUGH OF 17.7. PER DR HWANG OKAY TO GIVE. WILL CONTINUE TO MONITOR.
--- NOTE | 2018-05-03 07:00 | NUR ---
RECEIVED PATIENT RESTING IN BED. NO S/S OF DISTRESS NOTED, RESPIRATIONS EVEN AND UNLABORED. AT BEDSIDE. CALL LIGHT WITHIN REACH. BED IN THE LOWEST POSITION. Addendum: 05/03/18 at 0731 by ELMIRA VILLA RN WRONG ENTRY.
--- NOTE | 2018-05-03 07:00 | NUR ---
RECEIVED PATIENT LAYING IN BED WITH EYES OPEN. RESPIRATIONS EVEN AND UNLABORED, NO SOB OR ACUTE DISTRESS NOTED. PATIENT DENIES PAIN OR DISCOMFORT AT THIS TIME. CALL LIGHT WITHIN REACH. BED IN THE LOWEST POSITION.
[2018-05-03] MEDS: CEFTRIAXONE SOD 1 GM/NS 50 ML 50 ML IV SCH (08:23)
[2018-05-03] MEDS: PANTOPRAZOLE 40 MG 10ML VIAL IV SCH (08:23)
[2018-05-03] MEDS: VALACYCLOVIR HCL 500 MG TAB PO SCH ×2 (08:24→21:34)
[2018-05-03] MEDS: METOPROLOL SUCCINATE 25 MG TAB XL PO SCH ×2 (08:24→16:09)
[2018-05-03] MEDS: BALSAM PERU/CASTOR OIL 60 GM OINT...G. TP SCH ×2 (08:24→16:09)
[2018-05-03] MEDS: LISINOPRIL 2.5 MG TAB PO SCH (08:24)
[2018-05-03] MEDS: AZITHROMYCIN 500MG/NS 250 ML 250 ML IV SCH (08:58)
--- NOTE | 2018-05-03 13:48 | Diagnostic Imaging Report ---
This report includes an Addendum and supersedes previous reports for this exam. PROCEDURE:X-RAY MODIFIED BARIUM SWALLOW COMPARISON:None. INDICATIONS:Pneumonia and sepsis DISCUSSION:Fluoroscopic examination was performed in conjunction with speech pathology, during swallowing of a variety of thin and thick liquid consistencies. Fluoroscopy time: 2.7 minutes Total dose: 3.61 Gy.cm2 CONCLUSION:No penetration or aspiration. Please see the report from speech pathology for complete details. Gilberto Maki D.O. Dictated by: Gilberto Maki D.O. on 05/03/2018 at 13:59 Electronically approved by: Gilberto Maki D.O. on 05/03/2018 at 13:59 ADDENDUM: INDICATIONS: Pneumonia and sepsis with possible aspiration. Gilberto Maki D.O. Dictated by: Gilberto Maki D.O. on 05/11/2018 at 9:26 Electronically approved by: Gilberto Maki D.O. on 05/11/2018 at 9:26
[2018-05-03] MEDS: RIVAROXABAN 10 MG TABLET PO SCH (16:09)
--- NOTE | 2018-05-03 19:24 | NUR ---
PT IS SITTING UP AT THE SIDE OF THE BED. NO RESPIRATORY DISTRESS NOTED. BED IN THE LOWEST POSITION, LOCKED, AND CALL LIGHT WITHIN REACH. WILL CONTINUE TO MONITOR.
--- NOTE | 2018-05-03 19:42 | NUR ---
REPORT GIVEN TO ONCOMING NURSE. PATIENT IS RESTING IN BED. RESPIRATIONS EVEN AND UNLABORED, NO ACUTE DISTRESS NOTED, NO SOB. CALL LIGHT WITHIN REACH. BED IN THE LOWEST POSITION.
[2018-05-03] MEDS: ATORVASTATIN 40 MG TAB PO SCH (21:34)
[2018-05-04] VITALS (8 sets, daily range): BP systolic 135–157; BP diastolic 72–91
[2018-05-04] MEDS: LEVALBUTEROL HCL SOLN NEBU 0.63 MG/3 ML NEB INH SCH ×5 (04:00→23:40)
[2018-05-04] MEDS: IPRATROPIUM BROMIDE 0.02% 2.5 ML NEB NEB SCH ×5 (04:00→23:30)
[2018-05-04] MEDS: VANCOMYCIN 1GM/NS 250 ML 250 ML IV SCH (05:50)
[2018-05-04 06:27] LABS: BASOPHILS % 0.3 % (0.0-1.0); EOSINOPHILS # (AUTO) 0.1 (0.0-0.4); EOSINOPHILS % 0.5 % (0.0-6.0); HEMATOCRIT 43.4 % (38.2-49.6); HEMOGLOBIN 14.8 g/dL (14.0-18.0); LYMPHOCYTES # (AUTO) 0.9 (1.0-3.2); LYMPHOCYTES % 8.8 % (18.0-39.1); MEAN CORPUSCULAR HEMOGLOBIN 32.5 pg (28-32); MEAN CORPUSCULAR HGB CONC 34.1 g/dL (31-35); MEAN CORPUSCULAR VOLUME 95.4 fL (81-99); MONOCYTES # (AUTO) 0.5 (0.2-0.8); MONOCYTES % 5.6 % (4.4-11.3); NEUTROPHILS # (AUTO) 8.1 (2.1-6.9); NEUTROPHILS % 82.9 % (38.7-80.0); PLATELET COUNT 181 x10e3/uL (140-360); RED BLOOD COUNT 4.55 x10e6/uL (4.3-5.7); RED CELL DISTRIBUTION WIDTH 12.8 % (11.7-14.4)
[2018-05-04 06:55] LABS: ALBUMIN 2.7 g/dL (3.5-5.0); ANION GAP 13.8 mmol/L (8-16); CREATININE, SERUM 1.27 mg/dL (0.72-1.25); POTASSIUM 4.8 mmol/L (3.5-5.1)
[2018-05-04] MEDS: AZITHROMYCIN 500MG/NS 250 ML 250 ML IV SCH (08:56)
--- NOTE | 2018-05-04 09:05 | NUR ---
Pt received resting in bed. Pt oriented to staff and surroundings. Pt on Contact Isolation for Shingles. All meds given as ordered. Call gunderson within reach. Emotional support given. Will monitor
[2018-05-04] MEDS: PANTOPRAZOLE 40 MG 10ML VIAL IV SCH (09:06)
[2018-05-04] MEDS: CEFTRIAXONE SOD 1 GM/NS 50 ML 50 ML IV SCH (09:06)
[2018-05-04] MEDS: BALSAM PERU/CASTOR OIL 60 GM OINT...G. TP SCH ×2 (09:06→17:21)
[2018-05-04] MEDS: VALACYCLOVIR HCL 500 MG TAB PO SCH ×2 (09:06→21:15)
[2018-05-04] MEDS: METOPROLOL SUCCINATE 25 MG TAB XL PO SCH ×2 (09:06→17:21)
[2018-05-04] MEDS: LISINOPRIL 2.5 MG TAB PO SCH (09:06)
[2018-05-04] MEDS: RIVAROXABAN 10 MG TABLET PO SCH (17:21)
--- NOTE | 2018-05-04 19:05 | NUR ---
Received Pt lying right side lying. Alert and orient to name, place. Denies pain at this time. Resp even and unlabored. Call gunderson within reach. Will continue to monitor.
[2018-05-04] MEDS: ATORVASTATIN 40 MG TAB PO SCH (21:15)
[2018-05-05] VITALS: BP 148/63
[2018-05-05 04:00] VITALS: BP 131/65
[2018-05-05] MEDS: VANCOMYCIN 1GM/NS 250 ML 250 ML IV SCH (06:11)
[2018-05-05] MEDS: LEVALBUTEROL HCL SOLN NEBU 0.63 MG/3 ML NEB INH SCH ×2 (07:00→13:00)
[2018-05-05] MEDS: IPRATROPIUM BROMIDE 0.02% 2.5 ML NEB NEB SCH ×2 (07:00→13:00)
[2018-05-05 07:50] VITALS: BP 139/86
[2018-05-05 09:30] VITALS: BP 139/86
--- NOTE | 2018-05-05 09:30 | NUR ---
Pt received resting in bed. Affected Shingles areas to left breast, and back areas crusted. Pt for discharge today. All meds given as ordered. Call gunderson within reach. Emotional support given. Will monitor
[2018-05-05] MEDS: LISINOPRIL 2.5 MG TAB PO SCH (09:32)
[2018-05-05] MEDS: CEFTRIAXONE SOD 1 GM/NS 50 ML 50 ML IV SCH (09:32)
[2018-05-05] MEDS: PANTOPRAZOLE 40 MG 10ML VIAL IV SCH (09:32)
[2018-05-05] MEDS: BALSAM PERU/CASTOR OIL 60 GM OINT...G. TP SCH (09:32)
[2018-05-05] MEDS: METOPROLOL SUCCINATE 25 MG TAB XL PO SCH (09:32)
[2018-05-05 11:48] VITALS: BP 126/68
[2018-05-05] MEDS ORDERED: LEVAQUIN500 MG PO (14:32)
--- NOTE | 2018-05-05 14:40 | NUR ---
Pt's given discharge instructions regarding meds, diet, activities, and follow up appointment with PCP. (Mary) verbalized understanding of teaching. Ms Mary went home to medicinal plant picker Oxygen tank because pt's sat dropped to 81% on room air
[2018-05-05 16:01] VITALS: BP 136/79
--- NOTE | 2018-05-05 16:30 | NUR ---
Pt left in wheelchair to 's car
== END 2018-05-05 16:30 | disposition home or self-care (01) | DRG 871 ==
LOC: ER 06:06 → ERHOLD 08:42 → ICU 11:13 → MED/SURG3 05-02 18:11
PROVIDERS: ADMIT Internal Medicine; ATTEND Internal Medicine
PROC: 0BH17EZ Insertion of Endotracheal Airway into Trachea, Via Natural or Artificial Opening (ICD-10-PCS; principal; 2018-04-27)
PROC: 5A1945Z Respiratory Ventilation, 24-96 Consecutive Hours (ICD-10-PCS; 2018-04-27)
DX: A41.9 Sepsis, unspecified organism (principal); J18.9 Pneumonia, unspecified organism; J69.0 Pneumonitis due to inhalation of food and vomit; J96.90 Respiratory failure, unspecified, unspecified whether with hypoxia or hypercapnia; E87.2 Acidosis; I13.0 Hypertensive heart and chronic kidney disease with heart failure and stage 1 through stage 4 chronic kidney disease, or unspecified chronic kidney disease; G93.40 Encephalopathy, unspecified; R65.20 Severe sepsis without septic shock; I48.91 Unspecified atrial fibrillation; N18.3 Chronic kidney disease, stage 3 (moderate); I48.0 Paroxysmal atrial fibrillation; I50.9 Heart failure, unspecified; Z95.1 Presence of aortocoronary bypass graft; Z88.5 Allergy status to narcotic agent; Z88.8 Allergy status to other drugs, medicaments and biological substances; I25.2 Old myocardial infarction; I25.10 Atherosclerotic heart disease of native coronary artery without angina pectoris; Z79.01 Long term (current) use of anticoagulants; Z82.49 Family history of ischemic heart disease and other diseases of the circulatory system; Z87.891 Personal history of nicotine dependence; J44.9 Chronic obstructive pulmonary disease, unspecified; B02.9 Zoster without complications; N28.9 Disorder of kidney and ureter, unspecified; R13.10 Dysphagia, unspecified
CPT/HCPCS: 31500; 36415; 36600; 51700; 71045; 74018; 74230; 80048; 80053; 80202; 81001; 82550; 82553; 82805; 83605; 83735; 83880; 84484; 85025; 85610; 85730; 87040; 87070; 87086; 87205; 87400; 93005; 93306; 94002; 94003; 94640; 94660; 96367; 97139; 99285; J0330; J0456; J0696; J1160; J2250; J3370; J7030; J7040; J7050; J7060

== ENCOUNTER 2018-05-12 16:44 | Inpatient (IN) | payer MEDICARE ==
[~2018-05-12] VITALS: Ht 167.6 cm; Wt 66.3 kg
[~2018-05-12 16:44] MED LIST changes: +DOXAZOSIN MESYLA2 MG PO; +FERROUS SULFAT325 MG PO; +LEVAQUIN500 MG PO; +OMEPRAZOLE20 M1 PO; +TYLENOL # 31 EA; +VALACYCLOVIR1000 MG PO
[2018-05-12] MEDS ORDERED: ONDANSETRON HCL INJ 2MG/ML 2ML 2 MG/ML VIAL IV NR (16:55)
[2018-05-12] MEDS ORDERED: ASPIRIN 81 MG CHEW TAB PO ONE (17:00)
[2018-05-12 17:15] LABS: BASOPHILS % 0.2 % (0.0-1.0); EOSINOPHILS % 0.1 % (0.0-6.0); HEMATOCRIT 45.5 % (38.2-49.6); HEMOGLOBIN 15.7 g/dL (14.0-18.0); LYMPHOCYTES # (AUTO) 1.2 (1.0-3.2); LYMPHOCYTES % 8.4 % (18.0-39.1); MEAN CORPUSCULAR HEMOGLOBIN 33.2 pg (28-32); MEAN CORPUSCULAR HGB CONC 34.5 g/dL (31-35); MEAN CORPUSCULAR VOLUME 96.2 fL (81-99); MONOCYTES # (AUTO) 1.2 (0.2-0.8); MONOCYTES % 8.9 % (4.4-11.3); NEUTROPHILS # (AUTO) 11.1 (2.1-6.9); NEUTROPHILS % 80.9 % (38.7-80.0); PLATELET COUNT 232 x10e3/uL (140-360); RED BLOOD COUNT 4.73 x10e6/uL (4.3-5.7); RED CELL DISTRIBUTION WIDTH 13.4 % (11.7-14.4)
[2018-05-12] MEDS ORDERED: SODIUM CHLORIDE 0.9% 1000ML 1,000 ML IV ONE (17:45)
[2018-05-12] MEDS: SODIUM CHLORIDE 0.9% 1000ML 1,000 ML IV STA ×2 (17:57→18:40)
--- NOTE | 2018-05-12 18:03 | Diagnostic Imaging Report ---
Examination: Single AP view of the chest. COMPARISON: None. INDICATION: Shortness of breath, weakness DISCUSSION: Lines/tubes: Sternotomy wires. Lungs: Left lower lung atelectasis/scarring. Pleura: There is no pleural effusion or pneumothorax. Heart and mediastinum: The heart and the mediastinum are unremarkable. Bones and soft tissues: No acute bony abnormalities. IMPRESSION: 1. No acute cardiopulmonary abnormalities. Signed by: Dr. Sam Conrad M.D. on 05/12/2018 6:00 PM
[2018-05-12 18:20] LABS: INR 1.69; PROTHROMBIN TIME 21.2 seconds (11.9-14.5)
[2018-05-12 18:21] LABS: ALBUMIN 2.9 g/dL (3.5-5.0); ALBUMIN/GLOBULIN RATIO 1.3 (0.8-2.0); ANION GAP 17.5 mmol/L (8-16); CREATININE, SERUM 3.32 mg/dL (0.72-1.25)
[2018-05-12 18:23] LABS: POTASSIUM 5.5 mmol/L (3.5-5.1)
[2018-05-12 18:25] LABS: B-TYPE NATRIURETIC PEPTIDE2 242.7 pg/mL (0-100)
[2018-05-12 18:40] LABS: CREATINE KINASE MB 5.1 ng/mL (0-5.0); THYROID STIMULATING HORMONE 2.124 uIU/mL (0.350-4.940)
[2018-05-12 18:41] LABS: MAGNESIUM 2.2 MG/DL (1.3-2.1); PHOSPHORUS 5.6 MG/DL (2.3-4.7)
[2018-05-12] MEDS ORDERED: FAMOTIDINE 20 MG/2 ML VIAL IV NR (19:00)
[2018-05-12] MEDS ORDERED: MAGNESIUM/ALUMINUM/SIMETHICONE 30 ML UDC PO NR (19:00)
--- NOTE | 2018-05-12 19:00 | NUR ---
RECEIVED REPORT FROM ODETTE BENAVIDEZ
--- NOTE | 2018-05-12 19:05 | NUR ---
PT AWAKE ALERT SKIN W/D RESP NONLAB. NAD NOTED. PT DENIES PAIN AT PRESENT.
[2018-05-12 19:13] LABS: BILIRUBIN,URINE NEGATIVE (NEGATIVE); CLARITY,URINE CLEAR (CLEAR); COLOR,URINE YELLOW (YELLOW); KETONES,URINE NEGATIVE (NEGATIVE); LEUKOCYTE ESTERASE ,URINE NEGATIVE (NEGATIVE); NITRITE,URINE NEGATIVE (NEGATIVE); PROTEIN,URINE DIPSTICK NEGATIVE (NEGATIVE); URINE UROBILINOGEN 0.2 mg/dL (0.2 - 1)
[2018-05-12] MEDS ORDERED: SODIUM CHLORIDE FLUSH 10 ML SYR INJ PRN (19:15)
[2018-05-12] MEDS ORDERED: DEXTROSE 5%/0.9% SOD CHL 1,000 ML IV ONE ×2 (19:15→22:24)
[2018-05-12] MEDS ORDERED: ONDANSETRON HCL INJ 2MG/ML 2ML 2 MG/ML VIAL IV PRN (19:15)
[2018-05-12 19:24] LABS: BACTERIA,URINE MODERATE /HPF; EPITHELIAL CELLS,URINE RARE /LPF
[2018-05-12 20:00] VITALS: BP 128/71
[2018-05-12 21:00] VITALS: BP 128/71
--- NOTE | 2018-05-12 21:00 | NUR ---
patient recieved to room 111 via stretcher from the er. vss. no c/o pain noted. ivf infusing without difficulty. dry lesions noted to left medial back and left upper abd (under left breast). patient recovering from shingles per patient. admit assessment/history obtained. noted at the bedside. patient/ instructed to call for assistance when needed.
[2018-05-12] MEDS ORDERED: HYDROCODONE/APAP 10MG-325MG TAB PO PRN (22:15)
[2018-05-12] MEDS: SUCRALFATE 1 GM/10 ML SUSP PO SCH (22:30)
[2018-05-13] VITALS (8 sets, daily range): BP systolic 97–127; BP diastolic 53–71
[2018-05-13] MEDS: SODIUM CHLORIDE 0.9% 1000ML 1,000 ML IV SCH ×2 (05:00→15:05)
--- NOTE | 2018-05-13 05:00 | NUR ---
here to see patient. new orders noted. ivf's changed and diflucan 100 mg po daily ordered for oral thrush.
[2018-05-13 05:58] LABS: BASOPHILS % 0.3 % (0.0-1.0); EOSINOPHILS % 0.4 % (0.0-6.0); HEMATOCRIT 39.5 % (38.2-49.6); HEMOGLOBIN 13.5 g/dL (14.0-18.0); LYMPHOCYTES # (AUTO) 0.9 (1.0-3.2); LYMPHOCYTES % 8.3 % (18.0-39.1); MEAN CORPUSCULAR HEMOGLOBIN 32.8 pg (28-32); MEAN CORPUSCULAR HGB CONC 34.2 g/dL (31-35); MEAN CORPUSCULAR VOLUME 96.1 fL (81-99); MONOCYTES # (AUTO) 1.1 (0.2-0.8); MONOCYTES % 9.7 % (4.4-11.3); NEUTROPHILS # (AUTO) 8.6 (2.1-6.9); NEUTROPHILS % 80.2 % (38.7-80.0); PLATELET COUNT 196 x10e3/uL (140-360); RED BLOOD COUNT 4.11 x10e6/uL (4.3-5.7); RED CELL DISTRIBUTION WIDTH 13.4 % (11.7-14.4)
[2018-05-13 06:29] LABS: ANION GAP 12.9 mmol/L (8-16); CALCIUM 8.5 mg/dL (8.4-10.2); CREATININE, SERUM 2.22 mg/dL (0.72-1.25); POTASSIUM 4.9 mmol/L (3.5-5.1)
--- NOTE | 2018-05-13 06:56 | Diagnostic Imaging Report ---
EXAMINATION: CHEST SINGLE (PORTABLE) INDICATION: sob COMPARISON: 05/12/2018 FINDINGS: AP view TUBES and LINES: LUNGS: Lungs are well inflated. Stable left lower lung atelectasis/scarring. There is no evidence of pneumonia or pulmonary edema. PLEURA: Stable left pleural thickening. No right pleural effusion. No pneumothorax. HEART AND MEDIASTINUM: The cardiomediastinal silhouette is unremarkable. CABG clips. BONES AND SOFT TISSUES: No acute osseous lesion. Median sternotomy wires. Soft tissues are unremarkable. UPPER ABDOMEN: No free air under the diaphragm. IMPRESSION: No acute thoracic abnormality. Signed by: DR. Aurelio Cruz MD on 05/13/2018 6:53 AM
--- NOTE | 2018-05-13 07:02 | NUR ---
Received patient mid fowlers position, side rails upx2, call light within reach, at bedside. Resting with eyes closed. Arousable to verbal stimuli. Respirations even and unlabored. O2 2L NC. Will continue to monitor.
[2018-05-13] MEDS: CHLORASEPTIC SPRAY 177 ML BTL MM PRN ×2 (08:44→13:21)
[2018-05-13] MEDS: SUCRALFATE 1 GM/10 ML SUSP PO SCH ×4 (08:44→21:42)
[2018-05-13] MEDS: FLUCONAZOLE 100 MG TAB PO SCH (08:44)
--- NOTE | 2018-05-13 10:31 | NUR ---
IMM EXPLAINED, SIGNED BY PT AND PLACED ON CHART COPY IN PT'S CARE TRANSITION FOLDER
--- NOTE | 2018-05-13 12:28 | NUR ---
CASE MANAGEMENT ASSESSMENT Cement Mason to bedside to discuss plan of care with patient/family. CM/SW role and care transitions discussed. Anticipated discharge plan discussed along with duration of care. CM/SW discussed patients right to make decisions in care. CM/SW work hours given. Patient lives: with Mahsa Admit/Transfer: thru ED Hospital/ER visits since last admit: last admitted to this facility Apr 27 - May 05, 2018 for pneumonia, shingles. No ED visit between then and now POA/Emergency contact: Mahsa Sky [phone], kade Sky [phone] Current/Previous Home Health: none PCP/Follow-up Care: Dr. Toth; advised pt to follow up with MD within 7 days of discharge Current/Previous DME: rolling walker, cane, hearing aids Medications (referring to index hospitalization or the first time you were in the hospital) a. Were changes made in your medications when you were in the hospital on April 27-May 05? no b. Did you understand the changes? n/a c. Were you able to obtain your new medications right away? n/a d. Were you able to take your medications like the doctor wanted you to? yes e. Did the hospital give you an accurate, easy to understand list of medications when you left? n/a Scale of 1-10 how comfortable does patient feel with disease management in outpatient settin Other Services: none Employment Status: retired Areas of Concerns: dehydration, failure to thrive, weakness Referral Needs: may benefit from home health Education Needs: medical management IMM/TRACY given and signed (if applicable): IMM was given this morning Goal for discharge: Home; at bedside states she does not think they need home health. Stated she can take care of pt. CM/SW left business card at the bedside with contact information. Name and number was also written on the patients whiteboard. Patient verbalized understanding of discussion. CM will follow-up with ongoing discharge and transition of care needs.
--- NOTE | 2018-05-13 15:01 | NUR ---
Nutrition Intervention Note RD Recommendation(s) for Physician: -Liberalize diet to regular to promote PO intake -Rec Ensure Clear BID to increase protein-calorie intake Plan of Care: RD following, monitoring for tolerance and adequacy, ONS rec Nutrition reason for involvement: Nutrition Risk Trigger MST RD Assessment 05/13 Chart reviewed. Visited pt in the room. Pt reported poor appetite and decreased PO intake x2-3 weeks. thinks that he has lost ~5lbs within that period of time. Pt has some physical signs of muscle and fat loss upon NFPA. Today, his appetite has slightly improved. No nausea or vomiting reported. LBM 3/4 days ago, possibly due to poor PO. No chewing difficulty noted. Pt complained of some swallowing issue due to hx of oral thrush. RD rec to liberalize diet and add Ensure clear to promote PO intake. Will continue to monitor and follow. Principal Problems/Diagnoses: dehydration, failure to thrive PMH: COPD, [place], Afib, renal insufficiency, BPH, HLD GI: abdomen soft, flat, non-tender, flatus present Skin: intact Labs: (05/13) BUN 79 H, Creatinine 2.22 H, Phos 5.6, Mg 2.2 H Meds: carafate, NaCl Ht: 66 in Wt: 132.38lb BMI: 21.4kg/m2 IBW: 142lb Malnutrition Evaluation (05/13) The patient meets criteria for MODERATE protein-calorie malnutrition. Energy intake: <75% of estimated energy requirements for >7 days Weight loss: N/A Fat loss: Moderate clavicle protrusion Muscle loss: Moderate temporal depression Supporting Evidence: Fluid accumulation: n/a Functional Status: no changes Nutrition Prescription (Diet Order): cardiac diet Estimated Nutritional Needs: Calories: 1500 1800kcal (25-30kcal/kg/d) Weight used: current BW Protein: 60 72g (1.0-1.2g/kg/d) Weight used: current BW Diet Adequacy: Not meeting calorie needs, Not meeting protein needs Diet Education Needs Assessment: Diet education not indicated. Nutrition Care Level: mod Nutrition Diagnosis: Inadequate oral intake related to chronic illness as evidenced by poor appetite and decreased meal intake for 2-3 weeks. Goal: Patient will meet 75-100% of estimated needs by follow up Progress: N/A Interventions: Mineral/ texture-modified diet, Commercial beverage Monitoring/Evaluation: Total energy intake, Total protein intake, Modified diet, Liquid supplement, Weight change Signed: Carlota Bustillo, MS, RD, LD
--- NOTE | 2018-05-13 19:00 | NUR ---
Received patient from day nurse, patient is alert and oriented x 4, introduced self to patient and patient encouraged to verbalized all concerns. safety and fall precautions maintained as per hospital protocol: bed in lowest position and locked, needed items beside bed and call gunderson placed close to patient, patient instructed to use it to call nurses for any assistance needed, patient verbalized understanding. patient is currently stable, will continue to monitor.
--- NOTE | 2018-05-13 19:10 | NUR ---
Report given to oncoming nurse of patient's status. No s/s of acute distress noted.
[2018-05-14] VITALS (7 sets, daily range): BP systolic 93–167; BP diastolic 49–78
[2018-05-14] MEDS: SODIUM CHLORIDE 0.9% 1000ML 1,000 ML IV SCH ×3 (01:24→20:57)
[2018-05-14] MEDS ORDERED: LISINOPRIL 2.5 MG TAB PO ONE (06:00)
--- NOTE | 2018-05-14 06:45 | Progress Note ---
DATE: SUBJECTIVE: This patient came with failure to thrive, oral thrush and mfzsm-ob-ytabacf renal failure. Currently, the patient is afebrile. Does complain of weakness. No chest pain. No shortness of breath. No nausea, vomiting, or diarrhea. OBJECTIVE VITAL SIGNS: Temperature is 97.2, pulse of 88, respirations 20, blood pressure is 138/87, pulse oximetry 100% on 2 liters of nasal cannula. HEENT: Normocephalic and atraumatic. It is positive for thrush in the oral mucosa extending all the way into the oropharynx. CVS: S1 and S2, irregularly irregular. ABDOMEN: Nontender and nondistended. EXTREMITIES: No clubbing, no cyanosis, and/or no edema. MEDICATIONS: Currently, the patient is getting sodium chloride. He is on Carafate 1 gram a.c. and h.s., fluconazole 100 mg daily, hydrocodone q.4h. as needed, and also Zofran. LABORATORY VALUES: Yesterday his white count was 10.78 from 13.7. Neutrophil count was 80.0. Chemistry; sodium 138, potassium is 4.9, BUN 79 and creatinine of 2.22, estimated GFR of 48. BNP was 242. Toxicology; digoxin was less than 0.30. Coags are 21.2 and INR is 1.69. ASSESSMENT 1. Fqbfs-mg-jtwduzu renal failure. 2. Leukocytosis. 3. Oral thrush. 4. Atrial fibrillation. 5. History of congestive heart failure. 6. History of coronary artery disease. PLAN: Plan is to start off with nystatin. The patient is on fluconazole, we will continue this. Physical therapy to rehabilitate the patient for failure to thrive. The patient will be getting fluids and for his hyperkalemia which has resolved and hyponatremia which has also resolved. The patient's home medicines will be restarted and labs will be checked on a daily basis. Further recommendations per clinical course. We will continue to monitor the patient. Job#: [id number] MOISÉS
--- NOTE | 2018-05-14 06:45 | NUR ---
patient condition throughout the night was stable, patient endorsed to next shift for continuity of care.
--- NOTE | 2018-05-14 07:10 | NUR ---
RECEIVED PT AAOX3 NO COMPLAINTS AT THIS TIME. NO S/S OF DISTRESS NOTED. CALL LIGHT WITHIN REACH INSTRUCTED TO CALL FOR ASSISTANCE.
[2018-05-14] MEDS ORDERED: RIVAROXABAN 10 MG TABLET PO SCH (09:00)
[2018-05-14] MEDS ORDERED: DOXAZOSIN MESYLATE 2 MG TAB PO SCH (09:00)
[2018-05-14] MEDS: NYSTATIN SUSPENSION 5 ML UDC PO SCH ×3 (09:16→20:45)
[2018-05-14] MEDS: PANTOPRAZOLE SOD 40 MG TABEC PO SCH (09:16)
[2018-05-14] MEDS: METOPROLOL SUCCINATE 25 MG TAB XL PO SCH ×2 (09:16→15:58)
[2018-05-14] MEDS: SUCRALFATE 1 GM/10 ML SUSP PO SCH ×4 (09:16→20:44)
[2018-05-14] MEDS: ISOSORBIDE MONONITRATE 30 MG TAB CR PO SCH ×2 (09:17→15:58)
[2018-05-14] MEDS: FLUCONAZOLE 100 MG TAB PO SCH (09:17)
[2018-05-14] MEDS: FERROUS SULFATE 325 MG TAB PO SCH (09:17)
--- NOTE | 2018-05-14 19:18 | NUR ---
RECEIVED PATIENT IN BED. ALERT AND ORIENTED. O2 AT 2L/MIN VIA NASAL CANNULA. NO COMPLAIN OF DIFFICULTY OF BREATHING. INSTRUCTED TO USE CALL LIGHT WHEN NEEDED.
[2018-05-14] MEDS: ATORVASTATIN 20 MG TAB PO SCH (20:45)
[2018-05-15] VITALS (9 sets, daily range): BP systolic 97–139; BP diastolic 55–71
[2018-05-15 05:57] LABS: BASOPHILS % 0.1 % (0.0-1.0); EOSINOPHILS % 0.1 % (0.0-6.0); HEMATOCRIT 35.6 % (38.2-49.6); HEMOGLOBIN 12.1 g/dL (14.0-18.0); LYMPHOCYTES # (AUTO) 0.9 (1.0-3.2); LYMPHOCYTES % 11.5 % (18.0-39.1); MEAN CORPUSCULAR HEMOGLOBIN 33.1 pg (28-32); MEAN CORPUSCULAR VOLUME 97.3 fL (81-99); MONOCYTES # (AUTO) 0.5 (0.2-0.8); MONOCYTES % 6.7 % (4.4-11.3); NEUTROPHILS # (AUTO) 6.2 (2.1-6.9); NEUTROPHILS % 79.7 % (38.7-80.0); PLATELET COUNT 159 x10e3/uL (140-360); RED BLOOD COUNT 3.66 x10e6/uL (4.3-5.7); RED CELL DISTRIBUTION WIDTH 13.4 % (11.7-14.4)
[2018-05-15 06:24] LABS: ANION GAP 10.1 mmol/L (8-16); CALCIUM 7.8 mg/dL (8.4-10.2); CREATININE, SERUM 1.29 mg/dL (0.72-1.25); MAGNESIUM 1.7 MG/DL (1.3-2.1); POTASSIUM 4.1 mmol/L (3.5-5.1)
--- NOTE | 2018-05-15 06:57 | NUR ---
REPORT GIVEN TO ONCOMING NURSE.
--- NOTE | 2018-05-15 07:04 | Progress Note ---
DATE: SUBJECTIVE: The patient is here for debility and failure to thrive. The patient also had leukocytosis. Today, the patient is better, did some physical therapy yesterday. No complaints of chest pain. No shortness of breath. Positive for weakness and also positive for debility in the lower extremity. MEDICATIONS: Atorvastatin, Cardura, ferrous sulfate, fluconazole for yeast infection, hydrocodone as needed for pain control, isosorbide nitrate, metoprolol, pantoprazole, and Xarelto. OBJECTIVE VITAL SIGNS: Temperature is 98.1, pulse of 71, respirations of 18, blood pressure is 121/56, and pulse oximetry 98% on 2 liters of oxygen. GENERAL: The patient is alert and oriented x3, in good spirits. HEENT: Normocephalic and atraumatic. Pupils are reactive to light and accommodation. CVS: S1 and S2, irregularly irregular. ABDOMEN: Nontender and nondistended. EXTREMITIES: No clubbing, no cyanosis, and/or no edema. The patient has SCD's on at this time. LABORATORY VALUES: Pending today's lab values. Yesterday, his hemoglobin was 13.5, hematocrit of 39.5. Chemistry; creatinine was 2.22. We will trend labs today. Physical therapy will be continued. ASSESSMENT 1. Tkluz-kt-whgxkab renal failure. 2. Leukocytosis. 3. Thrush. 4. Atrial fibrillation. 5. Coronary artery disease. 6. Lngzq-ia-xsszwtf congestive heart failure. PLAN: Plan is to continue with nystatin and fluconazole for leukocytosis and for oral thrush. CBC will be trended today. Physical therapy to continue rehabilitating the patient. Hyperkalemia has resolved. Home medications have been restarted. We will continue to monitor the patient. Possible discharge in 1 to 2 days. Job#: [id number] LEXY
[2018-05-15] MEDS: SODIUM CHLORIDE 0.9% 1000ML 1,000 ML IV SCH (07:59)
[2018-05-15] MEDS: FERROUS SULFATE 325 MG TAB PO SCH (08:56)
[2018-05-15] MEDS: SUCRALFATE 1 GM/10 ML SUSP PO SCH ×4 (08:56→20:35)
[2018-05-15] MEDS: NYSTATIN SUSPENSION 5 ML UDC PO SCH ×3 (08:56→20:35)
[2018-05-15] MEDS: ISOSORBIDE MONONITRATE 30 MG TAB CR PO SCH ×2 (08:56→17:48)
[2018-05-15] MEDS: PANTOPRAZOLE SOD 40 MG TABEC PO SCH (08:57)
[2018-05-15] MEDS: METOPROLOL SUCCINATE 25 MG TAB XL PO SCH ×2 (08:57→17:49)
--- NOTE | 2018-05-15 10:00 | NUR ---
ASSISTED PT TO SIT IN CHAIR AT THIS TIME. TELEPHONE, PERSONAL BELONGINGS AND CALL LIGHT WITHIN REACH. INSTRUCTED TO CALL FOR ASSISTANCE.
[2018-05-15] MEDS: FLUCONAZOLE 100 MG TAB PO SCH (11:38)
[2018-05-15] MEDS: DOXAZOSIN MESYLATE 2 MG TAB PO SCH (11:38)
[2018-05-15] MEDS: RIVAROXABAN 10 MG TABLET PO SCH (17:49)
--- NOTE | 2018-05-15 18:53 | NUR ---
Received patient in bed with ongoing O2 at 2l/min via nasal cannula. No complaint of shortness of breath. Instructed to use call light when assistance is needed.
[2018-05-15] MEDS: ATORVASTATIN 20 MG TAB PO SCH (20:35)
[2018-05-16 00:31] VITALS: BP 121/62
[2018-05-16] MEDS: SODIUM CHLORIDE 0.9% 1000ML 1,000 ML IV SCH (03:59)
[2018-05-16 04:51] VITALS: BP 142/73
[2018-05-16 06:39] LABS: BASOPHILS % 0.1 % (0.0-1.0); EOSINOPHILS % 0.1 % (0.0-6.0); HEMATOCRIT 33.7 % (38.2-49.6); HEMOGLOBIN 11.5 g/dL (14.0-18.0); LYMPHOCYTES # (AUTO) 0.9 (1.0-3.2); LYMPHOCYTES % 13.1 % (18.0-39.1); MEAN CORPUSCULAR HEMOGLOBIN 33.2 pg (28-32); MEAN CORPUSCULAR HGB CONC 34.1 g/dL (31-35); MEAN CORPUSCULAR VOLUME 97.4 fL (81-99); MONOCYTES # (AUTO) 0.4 (0.2-0.8); MONOCYTES % 6.2 % (4.4-11.3); NEUTROPHILS # (AUTO) 5.5 (2.1-6.9); NEUTROPHILS % 78.9 % (38.7-80.0); PLATELET COUNT 161 x10e3/uL (140-360); RED BLOOD COUNT 3.46 x10e6/uL (4.3-5.7); RED CELL DISTRIBUTION WIDTH 13.3 % (11.7-14.4)
--- NOTE | 2018-05-16 06:46 | Progress Note ---
DATE: Patient is an 87-year-old male that comes in with failure to thrive and also srljk-ti-qydtjje renal injury. Patient is currently doing okay. No complaints. Patient was able to walk yesterday. Patient is eating very well. Fluids are running at 50 mL an hour. No complaints at this time. Physical therapy to be done today, and possible discharge depending upon progression. OBJECTIVE VITAL SIGNS: Temperature is 97.2, blood pressure is 142/73, pulse of 85, respirations of 18, pulse oximetry 99% on 1 L of nasal cannula. HEENT: Normocephalic and atraumatic. Pupils are reactive to light and accommodation. CV: S1 and S2 normal. Irregularly irregular. ABDOMEN: Nontender and nondistended. EXTREMITIES: No clubbing. No cyanosis. No edema. LABORATORY VALUES: Yesterday's hemoglobin was 12.1, hematocrit of 35.6. Chemistries had improved. BUN of 37 and creatinine of 1.29 from 2.22. Coags within normal limits. ASSESSMENT 1. Esldf-or-kuerhqk renal failure: Better and improving on fluids. Stop the fluids today. Continue with monitoring medications. 2. Leukocytosis which has improved. 3. Thrush which has improved. 4. Atrial fibrillation: Patient is on anticoagulation. 5. Coronary artery disease: Continue monitoring the patient. Further recommendations per clinical course. The patient can be discharged if physical therapy is okay with discharging the patient home with home health. Otherwise, SNF has been offered to the patient too. Job#: [id number] FREDY
[2018-05-16 07:02] LABS: ANION GAP 9.7 mmol/L (8-16); CALCIUM 7.8 mg/dL (8.4-10.2); CREATININE, SERUM 1.19 mg/dL (0.72-1.25); POTASSIUM 3.7 mmol/L (3.5-5.1)
--- NOTE | 2018-05-16 07:33 | NUR ---
REPORT GIVEN TO ON COMING NURSE
[2018-05-16 08:10] VITALS: BP 150/78
[2018-05-16] MEDS: METOPROLOL SUCCINATE 25 MG TAB XL PO SCH (08:54)
[2018-05-16] MEDS: FERROUS SULFATE 325 MG TAB PO SCH (08:54)
[2018-05-16] MEDS: PANTOPRAZOLE SOD 40 MG TABEC PO SCH (08:54)
[2018-05-16] MEDS: ISOSORBIDE MONONITRATE 30 MG TAB CR PO SCH (08:54)
[2018-05-16] MEDS: SUCRALFATE 1 GM/10 ML SUSP PO SCH (08:54)
[2018-05-16] MEDS: FLUCONAZOLE 100 MG TAB PO SCH (08:54)
[2018-05-16] MEDS: RIVAROXABAN 10 MG TABLET PO SCH (08:54)
[2018-05-16] MEDS: DOXAZOSIN MESYLATE 2 MG TAB PO SCH (08:54)
[2018-05-16 09:44] VITALS: BP 150/78
[2018-05-16] MEDS: NYSTATIN SUSPENSION 5 ML UDC PO SCH (09:44)
--- NOTE | 2018-05-16 10:53 | NUR ---
IMM EXPLAINED, SIGNED BY PT'S AND PLACED IN CHART COPY TO PT IN CARE TRANSITION FOLDER
--- NOTE | 2018-05-16 11:10 | NUR ---
SPOKE WITH MD SPRING ABOUT PHYSICAL THERAPY WORKING WITH PT AND OK A SAFE DISCHARGE. ORDER FOR DC GIVEN
--- NOTE | 2018-05-16 11:23 | NUR ---
DISCHARGE INSTRUCTIONS GIVEN . PT VERBALIZED UNDERSTANDING IV DC PRESSURE DRESSING APPLIED AND TAPED PT IS WAITING ON RIDE HOME
--- NOTE | 2018-05-16 12:20 | NUR ---
PT OFF FLOOR TO HOME VIA WHEEL CHAIR.
== END 2018-05-16 12:19 | disposition home or self-care (01) | DRG 683 ==
LOC: ER 16:44 → ERHOLD 19:21 → MED/SURG 20:31
PROVIDERS: ADMIT Internal Medicine; ATTEND Internal Medicine
DX: N17.9 Acute kidney failure, unspecified (principal); I13.0 Hypertensive heart and chronic kidney disease with heart failure and stage 1 through stage 4 chronic kidney disease, or unspecified chronic kidney disease; E87.1 Hypo-osmolality and hyponatremia; E86.0 Dehydration; B37.9 Candidiasis, unspecified; I48.91 Unspecified atrial fibrillation; I25.10 Atherosclerotic heart disease of native coronary artery without angina pectoris; E87.5 Hyperkalemia; N18.3 Chronic kidney disease, stage 3 (moderate); I50.9 Heart failure, unspecified; R62.7 Adult failure to thrive; Z68.23 Body mass index [BMI] 23.0-23.9, adult; D72.829 Elevated white blood cell count, unspecified
CPT/HCPCS: 36415; 71045; 80048; 80053; 80162; 81001; 82550; 82553; 83605; 83690; 83735; 83880; 84100; 84443; 84484; 85025; 85610; 85730; 87040; 87086; 87400; 93005; 99284; J2405; J7030; J7042

== ENCOUNTER 2018-08-01 10:11 | Inpatient (IN) | payer MEDICARE ==
[2018-08-01] VITALS (7 sets, daily range): BP systolic 63–120; BP diastolic 33–68
[~2018-08-01] VITALS: Ht 167.6 cm; Wt 67.1 kg
[2018-08-01] MEDS ORDERED: SODIUM CHLORIDE 0.9% 1000ML 1,000 ML IV STA ×2 (10:31→16:30)
[2018-08-01] MEDS ORDERED: ALBUTEROL/IPRATROPIUM 3 ML NEB NEB ONE ×2 (11:00→16:45)
[2018-08-01 11:10] LABS: ABG HCO3 16 mmol/L (23-28); ABG PCO2 18 mmHg (41-51); ABG PH 7.53 (7.31-7.41); ABG PO2 232 mmHg (80-105)
[2018-08-01 11:13] LABS: BASOPHILS % 0.1 % (0.0-1.0); HEMATOCRIT 35.4 % (38.2-49.6); HEMOGLOBIN 11.9 g/dL (14.0-18.0); LYMPHOCYTES # (AUTO) 0.8 (1.0-3.2); LYMPHOCYTES % 5.1 % (18.0-39.1); MEAN CORPUSCULAR HEMOGLOBIN 34.5 pg (28-32); MEAN CORPUSCULAR HGB CONC 33.6 g/dL (31-35); MEAN CORPUSCULAR VOLUME 102.6 fL (81-99); MONOCYTES # (AUTO) 1.3 (0.2-0.8); MONOCYTES % 8.1 % (4.4-11.3); NEUTROPHILS # (AUTO) 13.4 (2.1-6.9); NEUTROPHILS % 83.8 % (38.7-80.0); PLATELET COUNT 173 x10e3/uL (140-360); RED BLOOD COUNT 3.45 x10e6/uL (4.3-5.7); RED CELL DISTRIBUTION WIDTH 13.4 % (11.7-14.4)
[2018-08-01 11:34] LABS: ALBUMIN/GLOBULIN RATIO 1.1 (0.8-2.0); ANION GAP 17.2 mmol/L (8-16); CALCIUM 9.1 mg/dL (8.4-10.2); CREATININE, SERUM 3.3 mg/dL (0.72-1.25)
[2018-08-01 11:37] LABS: POTASSIUM 5.2 mmol/L (3.5-5.1)
[2018-08-01 11:44] LABS: CREATINE KINASE MB 4.3 ng/mL (0-5.0)
[2018-08-01 11:54] LABS: B-TYPE NATRIURETIC PEPTIDE2 119.3 pg/mL (0-100)
--- NOTE | 2018-08-01 12:19 | Diagnostic Imaging Report ---
PROCEDURE: A single AP view of the chest. COMPARISON: 05/13/2018. INDICATIONS: PNEUMONIA FINDINGS: The lungs are well-inflated. Unchanged blunting of the left lateral costophrenic sulcus with adjacent patchy and linear opacities of the lung base aerated the right lung is clear. Postsurgical changes of the mediastinum with sternotomy wires and surgical clips, unchanged. Atherosclerotic calcification of the thoracic aorta. No overt pulmonary edema. No acute osseous abnormality. IMPRESSION: No acute cardiopulmonary abnormality. Unchanged presumed postsurgical left basal pleural thickening with adjacent fibrotic change. Dictated by: Chucho Awad M.D. on 08/01/2018 at 12:20 Electronically approved by: Chucho Awad M.D. on 08/01/2018 at 12:20
[2018-08-01 12:37] LABS: INR 3.41; PROTHROMBIN TIME 35.2 seconds (11.9-14.5)
[2018-08-01 12:38] LABS: PARTIAL THROMBOPLASTIN TIME 40.4 seconds (23.8-35.5)
[2018-08-01] MEDS ORDERED: SODIUM CHLORIDE 0.9% 1000ML 1,000 ML ONE ×2 (12:42→16:12)
[2018-08-01] MEDS ORDERED: SODIUM CHLORIDE 0.9% 1000ML 1,000 ML IV ONE (12:45)
[2018-08-01] MEDS ORDERED: FENTANYL CITRATE/PF 100MCG/2 ML INJ IV ONE (12:45)
--- NOTE | 2018-08-01 13:11 | Diagnostic Imaging Report ---
PROCEDURE: A single AP view of the chest. COMPARISON: 08/01/2018 1050 hrs. INDICATIONS: CENTRAL LINE PLACEMENT FINDINGS: See impression IMPRESSION: Interval placement of a right subclavian central venous catheter, with the tip projecting over the low superior vena cava. No pneumothorax. Otherwise stable examination compared to 1050 hrs. on 08/01/2018. Dictated by: Chucho Awad M.D. on 08/01/2018 at 13:12 Electronically approved by: Chucho Awad M.D. on 08/01/2018 at 13:12
--- NOTE | 2018-08-01 15:16 | Diagnostic Imaging Report ---
CT of the chest, abdomen, and pelvis, without contrast, 08/01/2018. History: Shortness of breath, right pelvic bruising. Comparison: None available. Technique: Technique: Multidetector CT scanning of the chest, abdomen, and pelvis was performed from the level of the lung apices to the inferior pubic rami without intravenous or oral administration of contrast. Coronal and sagittal multiplanar reformations were obtained. RADIATION DOSE: Dose modulation, iterative reconstruction, and/or weight based adjustment of the mA/kV was utilized to reduce the radiation dose to as low as reasonably achievable. Discussion: CHEST: The heart, aorta, and main pulmonary artery are normal in size. There is calcification of the coronary arteries and thoracic aorta. Mediastinal wires and CABG clips are present. The thyroid is unremarkable. There is no evidence of axillary or mediastinal adenopathy. Calcified granulomata are present in the left upper lobe. Dense left pleural calcification and thickening are present primarily at the left lung base. Scattered atelectasis and linear scarring are present bilaterally. There is no evidence of consolidation, mass, or pleural effusion. ABDOMEN: The liver, gallbladder, biliary tree, spleen, pancreas, adrenal glands, and kidneys are unremarkable. The abdominal aorta is densely calcified but within normal limits for size. Evaluation of the bowel is limited without oral contrast. There is no bowel dilatation. The appendix is visualized and is normal. Multiple diverticuli are present throughout the colon without evidence of adjacent inflammation. There is no evidence of adenopathy or free fluid. PELVIS: The bladder contains air and a Rhodes catheter. The prostate is unremarkable. Bilateral fat-containing inguinal hernias are present. There is no evidence of free fluid or adenopathy. BONES AND SOFT TISSUES: An oval heterogeneously hyperdense structure in the right gluteus maximum muscle is present measuring approximately 5 x 7 cm. There is mild bilateral anasarca. Advanced degenerative changes are present throughout the lumbar spine without evidence of lytic or sclerotic lesion. IMPRESSION: 1. No acute pulmonary abnormality. Left pleural calcification and thickening are likely related to prior infection/pneumothorax. 2. Right gluteal hematoma. 3. Colonic diverticulosis without evidence of diverticulitis. 4. Bilateral fat-containing inguinal hernias. Signed by: Lb Garcia on 08/01/2018 3:13 PM
[2018-08-01] MEDS ORDERED: VANCOMYCIN 1GM/NS 250 ML 250 ML ONE (16:12)
[2018-08-01] MEDS ORDERED: VANCOMYCIN 1GM/NS 250 ML 250 ML IV STA (16:30)
[2018-08-01] MEDS ORDERED: VANCOMYCIN 1GM/NS 250 ML 250 ML IV ONE (17:00)
[2018-08-01 18:00] LABS: BILIRUBIN,URINE NEGATIVE (NEGATIVE); CLARITY,URINE SL CLOUDY (CLEAR); COLOR,URINE YELLOW (YELLOW); KETONES,URINE NEGATIVE (NEGATIVE); LEUKOCYTE ESTERASE ,URINE NEGATIVE (NEGATIVE); NITRITE,URINE NEGATIVE (NEGATIVE); PROTEIN,URINE DIPSTICK NEGATIVE (NEGATIVE); URINE UROBILINOGEN 0.2 mg/dL (0.2 - 1)
[2018-08-01 18:08] LABS: AMORPHOUS SEDIMENT,URINE MODERATE (FEW)
[2018-08-01 19:17] LABS: CREATINE KINASE MB 3.6 ng/mL (0-5.0)
[2018-08-01] MEDS ORDERED: ACETAMINOPHEN 1000 MG/100 ML IV PRN (21:15)
[2018-08-01] MEDS: LIDOCAINE 5% PATCH TP SCH (22:35)
[2018-08-02] VITALS (27 sets, daily range): BP systolic 85–133; BP diastolic 24–103
[2018-08-02 05:26] LABS: BASOPHILS % 0.1 % (0.0-1.0); EOSINOPHILS % 0.1 % (0.0-6.0); HEMATOCRIT 27.4 % (38.2-49.6); HEMOGLOBIN 9.2 g/dL (14.0-18.0); LYMPHOCYTES # (AUTO) 0.7 (1.0-3.2); LYMPHOCYTES % 7.4 % (18.0-39.1); MEAN CORPUSCULAR HEMOGLOBIN 34.3 pg (28-32); MEAN CORPUSCULAR HGB CONC 33.6 g/dL (31-35); MEAN CORPUSCULAR VOLUME 102.2 fL (81-99); MONOCYTES # (AUTO) 0.7 (0.2-0.8); MONOCYTES % 7.6 % (4.4-11.3); NEUTROPHILS # (AUTO) 7.4 (2.1-6.9); PLATELET COUNT 131 x10e3/uL (140-360); RED BLOOD COUNT 2.68 x10e6/uL (4.3-5.7); RED CELL DISTRIBUTION WIDTH 13.4 % (11.7-14.4)
[2018-08-02 05:54] LABS: ALBUMIN 2.3 g/dL (3.5-5.0); ALBUMIN/GLOBULIN RATIO 1.2 (0.8-2.0); ANION GAP 11.7 mmol/L (8-16); CALCIUM 7.9 mg/dL (8.4-10.2); CREATININE, SERUM 2.33 mg/dL (0.72-1.25); POTASSIUM 4.7 mmol/L (3.5-5.1)
--- NOTE | 2018-08-02 07:15 | NUR ---
PT CENTRAL LINE NOTED TO BE OOZING BLOOD, CENTRAL LINE DRESSING SATURATED THIS RN REMOVED PREVIOUS DRESSING AND APPLIED NEW DRESSING, SOME PRESSURE APPLIED WILL CONTINUE TO MONITOR SITE
--- NOTE | 2018-08-02 07:57 | Diagnostic Imaging Report ---
EXAMINATION: CHEST SINGLE (PORTABLE) INDICATION: Shortness of breath. COMPARISON: CT Chest 08/01/2018 and chest radiograph 05/13/2018. FINDINGS: TUBES and LINES: Right subclavian central venous catheter terminates in the mid SVC. LUNGS: Lungs are moderately inflated. There are mild patchy opacities in the dependent right upper and mid lungs and left lower lung, better characterized on prior CT. Mild bronchial wall thickening. Mild left interstitial opacities. Stable left lower lung atelectasis/scarring. PLEURA: Stable left pleural thickening. No right pleural effusion. No pneumothorax. HEART AND MEDIASTINUM: The cardiomediastinal silhouette is unremarkable. Atherosclerotic calcifications of the aortic arch. Status post CABG. BONES AND SOFT TISSUES: No acute osseous abnormality. Status post median sternotomy. UPPER ABDOMEN: No free air under the diaphragm. IMPRESSION: Patchy multifocal opacities, consistent with aspiration or pneumonia. Suggest follow-up chest radiograph in 6-8 weeks to assess for resolution. Signed by: Dr. Melvin Lam MD on 08/02/2018 7:54 AM
[2018-08-02] MEDS ORDERED: IPRATROPIUM BROMIDE 0.02% 2.5 ML NEB NEB PRN (08:30)
[2018-08-02] MEDS ORDERED: ACETAMINOPHEN/CODEINE 300MG - 30MG TAB PO PRN (08:30)
[2018-08-02] MEDS: VANCOMYCIN 1GM/NS 250 ML 250 ML IV SCH (08:51)
[2018-08-02] MEDS ORDERED: PANTOPRAZOLE SOD 40 MG TABEC PO SCH (09:00)
[2018-08-02] MEDS ORDERED: PREDNISONE 20 MG TAB PO SCH (09:00)
[2018-08-02] MEDS ORDERED: NON-FORMULARY MEDICATION (Isosorbide Mononitrate (Isosorbide Mononitrate Er) 60 MG) PO SCH (09:00)
[2018-08-02] MEDS: METOPROLOL SUCCINATE 25 MG TAB XL PO SCH ×2 (09:01→16:35)
[2018-08-02] MEDS: PANTOPRAZOLE SOD 40 MG TABEC PO SCH (09:01)
[2018-08-02] MEDS: ISOSORBIDE MONONITRATE 30 MG TAB CR PO SCH ×2 (09:01→18:32)
[2018-08-02] MEDS: ACETAMINOPHEN/CODEINE 300MG - 30MG TAB PO PRN (09:01)
[2018-08-02] MEDS: FERROUS SULFATE 325 MG TAB PO SCH (09:01)
[2018-08-02 09:48] LABS: LYMPHOCYTES % (MANUAL) 7 % (19-48); MONOCYTES % (MANUAL) 6 % (3.4-9.0); NEUTROPHILS % (MANUAL) 87 % (40-74); PLATELET MORPHOLOGY COMMENT NORMAL; RBC MORPHOLOGY COMMENT NORMAL
[2018-08-02 09:49] LABS: PLATELET ESTIMATE SLIGHTLY DECREASED
--- NOTE | 2018-08-02 09:50 | NUR ---
CONSULT FOR CALLED AT THIS TIME
[2018-08-02] MEDS ORDERED: ONDANSETRON HCL INJ 2MG/ML 2ML 2 MG/ML VIAL IV PRN (10:45)
[2018-08-02] MEDS ORDERED: PROMETHAZINE 12.5MG/ NACL 0.9% 12.5 MG/50 ML BAG IV PRN (12:45)
[2018-08-02] MEDS: IPRATROPIUM BROMIDE 0.02% 2.5 ML NEB NEB SCH ×3 (15:10→23:30)
[2018-08-02] MEDS: ALBUTEROL SULF 0.083% NEB SOLN 3 ML NEB NEB SCH ×3 (15:10→23:00)
[2018-08-02] MEDS ORDERED: IPRATROPIUM BROMIDE 0.02% 2.5 ML NEB ONE (15:15)
--- NOTE | 2018-08-02 15:25 | Consultation ---
DATE OF CONSULTATION: Pulmonary Consultation The patient of Dr. oTth and Dr. Powell, well known to Pulmonary Service because of a history of asbestosis with pleural plaques; chronic atrial fibrillation; congestive heart failure; severe coronary artery disease; proximal muscle weakness; allergic to Demerol, Nubain, and morphine; admitted with a hematoma in the right gluteal area presumably related to intramuscular injection. Smoked a pack a day for only 6 years. He has had coronary artery bypass surgery in the past. He has a history of BPH, history of chronic renal failure. PHYSICAL EXAMINATION: GENERAL: White male, in no acute distress, complaining of pain in the gluteal area. VITAL SIGNS: Temperature 97.9, pulse 104, respirations 17, and blood pressure 122/60. HEAD: Normocephalic, atraumatic. EYES: Extraocular movements are intact. LUNGS: Bilateral rhonchi. HEART: Irregularly irregular rhythm. ABDOMEN: Nontender. EXTREMITIES: There is a hematoma in the right gluteal area. PLAN: Plan is to continue home medications. Will hold antihypertensives at this time with the exception of metoprolol to control the heart rate. Hold Xarelto at this time. Encourage p.o. intake. Continue antibiotic therapy as per Dr. Toth. The patient is currently on vancomycin hematoma for drainage at this time per Dr. Toth. Moderate dose steroids for his wheezing. CT suggested that the infiltrates are related to pleural plaque. Thank you for this kind referral. MD CARLOS Noble/RANDOLPH /[id number]
[2018-08-02] MEDS: METHYLPREDNISOLONE SOD SUCC 40 MG/ML VIAL 1ML IV SCH (15:41)
[2018-08-02] MEDS: SODIUM BICARBONATE 650 MG TAB PO SCH (16:21)
--- NOTE | 2018-08-02 20:02 | Consultation ---
DATE OF CONSULTATION: 08/02/2018 Cardiology Consultation Mr. Sky is a very pleasant 87-year-old man, known to me for many years, who was admitted on the with a complaint of shortness of breath. HISTORY OF PRESENT ILLNESS: The patient reports that he has been home for a few weeks since he was recently hospitalized with shingles and pneumonia. He reports he had shingles on the left side of his chest and it hurts to take a deep breath, so not breathing deeply, he developed pneumonia and required hospitalization. His pneumonia had been getting some better, but for some reason now has worsening shortness of breath. PAST MEDICAL HISTORY: Long and complex. First myocardial infarction in 1970, had coronary artery bypass graft surgery in 1991, longstanding hypertension, hyperlipidemia, mild renal insufficiency. He has developed chronic atrial fibrillation. He has severe COPD. He has had additional surgeries of brachytherapy of stent in his circumflex artery, had right rotator cuff repair in 2011, basal cell CA from the left temporal region in 2011, and a distal right coronary artery stent in 2013. MEDICATIONS: His recent home medications include Xarelto 20 mg daily, nitroglycerin sublingual p.r.n., lisinopril 5 mg daily, metoprolol tartrate 50 mg twice a day, doxazosin 2 mg daily, Lipitor 40 mg daily, isosorbide mononitrate 60 mg twice a day, omeprazole 20 mg daily, furosemide 20 mg daily, atorvastatin 40 mg daily. FAMILY HISTORY: His father lived to age 86. Mother at 64 of myocardial infarction. He had one sister, who of myocardial infarction. PERSONAL AND SOCIAL HISTORY: He does not drink. He has not smoked in many years. PHYSICAL EXAMINATION: GENERAL: At this time shows a thin elderly white man, who appears dyspneic. VITAL SIGNS: Blood pressure 114/50, pulse is 100 and irregularly irregular. HEAD, EYES, EARS, NOSE, AND THROAT: Unremarkable. NECK: No jugular venous distention. THORAX: There is healed midline sternotomy. HEART: Sounds S1, S2 are equal, but irregularly regular. There is no distinct murmur. LUNGS: Have very distant breath sounds. No wheezing or rhonchi. PERTINENT LABORATORY STUDIES: Show initial creatinine above 3.0. White count is elevated. ASSESSMENT: 1. Acute renal insufficiency. 2. Recovering from pneumonia. 3. Recovering from shingles, completely healed. 4. Chronic atrial fibrillation. 5. Over anticoagulation with Xarelto. 6. Severe chronic obstructive pulmonary disease. 7. Coronary artery disease, clinically stable after coronary artery bypass graft surgery with troponins normal. PLAN: Agree with gentle hydration and monitoring renal function and respiratory status. His prognosis is very guarded with his multiple severe medical problems and advanced age. We will follow him closely with you. Thank you for asking me to see him in consultation. MD CAMI Sampson/MODL /[id number] cc: Chucho Jacques MD
[2018-08-02] MEDS: ATORVASTATIN 20 MG TAB PO SCH (21:25)
--- NOTE | 2018-08-02 22:38 | Consultation ---
DATE OF CONSULTATION: 08/02/2018 HISTORY OF PRESENT ILLNESS: Mr. Ryne Sky is known to our Nephrology Service. He has existing history of chronic kidney disease stage 3 going on stage 4 and has been admitted this time with shortness of breath and dyspnea. Chest x-ray consistent with patchy multifocal opacities consistent with pneumonia. He also has a significant what look like ecchymotic bruise, which is mildly tender extending from the lateral aspect of his right thigh down to his calf area. He is currently lying supine, appears obviously in [id number] respiratory distress. Has history of atrial fibrillation, coronary artery bypass surgery, hypertension. At the moment, blood pressure 101/58 with a heart rate of 105, irregularly irregular, oxygen saturation 100% on nasal cannula. He also has a history of inguinal hernia. Renal consulted for management of underlying kidney disease. LABORATORY DATA: Show hemoglobin 9.2. Chemistry shows sodium 136, potassium 4.7, bicarbonate 17, BUN 93, creatinine 2.33, magnesium level 2.3, total bilirubin 1.5, and BNP of 119. SOCIAL HISTORY: Does not smoke or drink. Has a very supportive . CURRENT MEDICATIONS: Currently on prednisone 20 mg daily, which I am going to stop, metoprolol 50 mg p.o. b.i.d., ondansetron p.r.n., pantoprazole 40 mg daily, isosorbide 60 mg p.o. b.i.d., atorvastatin 40 mg at bedtime. He has received a dose of vancomycin and a liter of normal saline. He is on albuterol, Atrovent nebulizers. Also on isosorbide 60 mg p.o. b.i.d. PHYSICAL EXAMINATION: GENERAL: Awake, alert, thin-built gentleman with vital signs as above. HEAD AND NECK: Cornea clear. Oral mucosa moist. JVD could not be appreciated. LUNGS: Both inspiratory and expiratory rhonchi scattered bilaterally. No rales noted. Sternotomy scar noted. Has an indwelling Rhodes catheter. He is nonoliguric. ABDOMEN: Soft, nontender. HEART: Shows irregularly irregular rhythm. EXTREMITIES: Lower extremity shows the ecchymotic area extending from the upper left greater trochanteric area down to his ankle. Otherwise, no edema. IMPRESSION AND PLAN: Acute on chronic kidney failure, underlying bronchospasm, and no evidence of congestive heart failure, multiple comorbidities. Plan on optimizing nebulizer care as well as discontinuing p.o. prednisone. We will place him on Solu-Medrol 40 IV q.8 first dose now. We will start p.o. sodium bicarbonate for his distal renal tubular acidosis. His total bilirubin is elevated. It is likely due to absorption of the hematoma and metabolism of underlying of hemoglobin. We will monitor the patient's kidney function, urine output, and electrolytes with you. Further recommendations to follow. MD LITA Jones/RANDOLPH /[id number]
--- NOTE | 2018-08-02 23:07 | NUR ---
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 CALL PLACED FOR DR SANCHEZ, SPOKE WITH CHELY AT ANSWERING SERVICE
[2018-08-02] MEDS: NITROGLYCERIN 0.4 MG SUBL SL SCH (23:08)
--- NOTE | 2018-08-02 23:10 | NUR ---
DR SANCHEZ RETURNED CALL, HE STATED "GIVE HIM A DOSE OF DIGOXIN 0.5 ONE TIME AND THAT IS ALL"
[2018-08-02] MEDS ORDERED: DIGOXIN INJ 0.25 MG/ML 2 ML AMP IV ONE (23:15)
--- NOTE | 2018-08-02 23:31 | NUR ---
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
[2018-08-03] VITALS (23 sets, daily range): BP systolic 101–146; BP diastolic 56–129
[2018-08-03] MEDS: IPRATROPIUM BROMIDE 0.02% 2.5 ML NEB NEB SCH ×6 (03:00→22:30)
[2018-08-03] MEDS: ALBUTEROL SULF 0.083% NEB SOLN 3 ML NEB NEB SCH ×2 (03:00→07:05)
[2018-08-03 05:43] LABS: HEMATOCRIT 26.9 % (38.2-49.6); HEMOGLOBIN 9.1 g/dL (14.0-18.0); LYMPHOCYTES # (AUTO) 0.3 (1.0-3.2); LYMPHOCYTES % 2.9 % (18.0-39.1); MEAN CORPUSCULAR HEMOGLOBIN 34.1 pg (28-32); MEAN CORPUSCULAR HGB CONC 33.8 g/dL (31-35); MEAN CORPUSCULAR VOLUME 100.7 fL (81-99); MONOCYTES # (AUTO) 0.2 (0.2-0.8); MONOCYTES % 1.5 % (4.4-11.3); NEUTROPHILS # (AUTO) 10.5 (2.1-6.9); NEUTROPHILS % 94.3 % (38.7-80.0); PLATELET COUNT 140 x10e3/uL (140-360); RED BLOOD COUNT 2.67 x10e6/uL (4.3-5.7); RED CELL DISTRIBUTION WIDTH 13.2 % (11.7-14.4)
[2018-08-03 05:52] LABS: ANION GAP 10.1 mmol/L (8-16); CALCIUM 8.2 mg/dL (8.4-10.2); CREATININE, SERUM 2.07 mg/dL (0.72-1.25); MAGNESIUM 2.5 MG/DL (1.3-2.1); PHOSPHORUS 3.1 MG/DL (2.3-4.7); POTASSIUM 5.1 mmol/L (3.5-5.1)
[2018-08-03] MEDS: CEFEPIME 1GM/NS 0.9% 50 ML 50 ML IV SCH ×2 (05:53→17:20)
[2018-08-03] MEDS: METHYLPREDNISOLONE SOD SUCC 40 MG/ML VIAL 1ML IV SCH (06:11)
[2018-08-03] MEDS: NITROGLYCERIN 0.4 MG SUBL SL SCH (08:32)
[2018-08-03] MEDS ORDERED: LACTULOSE SYRUP 20 GM/30 ML UDC PO ONE (08:45)
[2018-08-03] MEDS ORDERED: SOD POLYSTYRENE SULFONATE SUSP 15 GM/60 ML BTL PO ONE (08:45)
[2018-08-03] MEDS ORDERED: DIGOXIN INJ 0.25 MG/ML 2 ML AMP IV ONE (08:45)
[2018-08-03] MEDS: ISOSORBIDE MONONITRATE 30 MG TAB CR PO SCH ×2 (09:00→17:20)
[2018-08-03] MEDS: FERROUS SULFATE 325 MG TAB PO SCH (09:00)
[2018-08-03] MEDS: PANTOPRAZOLE SOD 40 MG TABEC PO SCH (09:00)
[2018-08-03] MEDS: VANCOMYCIN 1GM/NS 250 ML 250 ML IV SCH (09:00)
[2018-08-03] MEDS: SODIUM BICARBONATE 650 MG TAB PO SCH ×2 (09:00→17:20)
[2018-08-03] MEDS: LIDOCAINE 5% PATCH TP SCH (09:00)
[2018-08-03] MEDS: METOPROLOL SUCCINATE 25 MG TAB XL PO SCH ×2 (09:00→17:20)
[2018-08-03] MEDS ORDERED: NITROGLYCERIN 0.4 MG SUBL SL PRN (10:15)
[2018-08-03] MEDS: NITROGLYCERIN 2% OINT 1 GM PKT TOP SCH ×2 (10:50→18:00)
[2018-08-03] MEDS ORDERED: SODIUM CHLORIDE 0.9% 250ML 250 ML ONE (11:58)
--- NOTE | 2018-08-03 13:24 | NUR ---
MANAGER BRANCH TO BEDSIDE TO DISCUSS PLAN OF CARE WITH PATIENT AND . CM ROLE AND CARE TRANSITIONS DISCUSSED. ANTICIPATED DISCHARGE PLAN DISCUSSED ALONG WITH DURATION OF CARE. CM DISCUSSED PATIENT'S RIGHT TO MAKE DECISIONS IN CARE. CM WORK HOURS GIVEN PT LIVES WITH ADMIT/TRANSFER: FROM [facility]/ER VISITS SINCE LAST ADMIT: 2 ER VISITS POA/EMERGENCY CONTACT: JOSÉ ANTONIO [phone] CURRENT/PREVIOUS DME: 02 PORTABLE AND CONCENTRATOR; WALKER, SHOWER CHAIR PCP/FOLLOW UP CARE: DR GABY AMEZQUITA CURRENT/PREVIOUS HOME HEALTH: NONE EMPLOYMENT STATUS: RETIRED AREAS OF CONCERN: NONE REFERRAL NEEDS: NONE AT THIS TIME
--- NOTE | 2018-08-03 15:19 | NUR ---
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 Large Hematoma extending from right gluteal to ankle. Patient states to have received an antibiotic shot to right gluteal. [place] discomfort, internal hemorrhage from injection and being on anticoagulation therapy. Area stable. Patient states improvement and denies discomfort from site. No areas of induration. Temperature normal to touch when compared to other parts of body. Getting out of bed to bed side commode. AROM x4. States to be ambulating with therapy and has been out of bed on 3 occasions today. No Pressure Ulcers Identified During Visit. RECOMMENDATION: - Continue Conservative PUP Addendum: 08/03/18 at 1526 by Gerson Elizabeth RN Amended: Links added.
[2018-08-03] MEDS ORDERED: METHYLPREDNISOLONE SOD SUCC 40 MG/ML VIAL 1ML IV SCH (17:00)
[2018-08-03] MEDS ORDERED: FUROSEMIDE INJ 10 MG/ML 4 ML VIAL ONE (17:02)
[2018-08-03] MEDS ORDERED: FUROSEMIDE INJ 10 MG/ML 4 ML VIAL IV ONE (18:00)
[2018-08-03] MEDS: ATORVASTATIN 20 MG TAB PO SCH (20:56)
[2018-08-04] VITALS (22 sets, daily range): BP systolic 93–142; BP diastolic 50–84
[2018-08-04] MEDS: NITROGLYCERIN 2% OINT 1 GM PKT TOP SCH ×4 (00:05→17:57)
[2018-08-04] MEDS: IPRATROPIUM BROMIDE 0.02% 2.5 ML NEB NEB SCH ×6 (03:00→23:15)
[2018-08-04 05:48] LABS: BASOPHILS % 0.1 % (0.0-1.0); HEMATOCRIT 25.8 % (38.2-49.6); HEMOGLOBIN 8.8 g/dL (14.0-18.0); LYMPHOCYTES # (AUTO) 0.4 (1.0-3.2); LYMPHOCYTES % 3.1 % (18.0-39.1); MEAN CORPUSCULAR HEMOGLOBIN 34.2 pg (28-32); MEAN CORPUSCULAR HGB CONC 34.1 g/dL (31-35); MEAN CORPUSCULAR VOLUME 100.4 fL (81-99); MONOCYTES # (AUTO) 0.5 (0.2-0.8); MONOCYTES % 3.4 % (4.4-11.3); NEUTROPHILS # (AUTO) 12.3 (2.1-6.9); NEUTROPHILS % 92.4 % (38.7-80.0); PLATELET COUNT 141 x10e3/uL (140-360); RED BLOOD COUNT 2.57 x10e6/uL (4.3-5.7); RED CELL DISTRIBUTION WIDTH 13.2 % (11.7-14.4)
[2018-08-04 06:03] LABS: INR 1.14; PROTHROMBIN TIME 15.2 seconds (11.9-14.5)
[2018-08-04 06:10] LABS: ALBUMIN 2.2 g/dL (3.5-5.0); ALBUMIN/GLOBULIN RATIO 1.2 (0.8-2.0); ANION GAP 9.9 mmol/L (8-16); CALCIUM 8.2 mg/dL (8.4-10.2); CREATININE, SERUM 1.82 mg/dL (0.72-1.25); POTASSIUM 3.9 mmol/L (3.5-5.1)
[2018-08-04] MEDS: CEFEPIME 1GM/NS 0.9% 50 ML 50 ML IV SCH ×2 (06:12→17:57)
[2018-08-04 06:20] LABS: DIGOXIN 1.09 ng/mL (0.8-2.0)
[2018-08-04] MEDS: VANCOMYCIN 1GM/NS 250 ML 250 ML IV SCH (09:00)
[2018-08-04] MEDS: FERROUS SULFATE 325 MG TAB PO SCH (09:16)
[2018-08-04] MEDS: ISOSORBIDE MONONITRATE 30 MG TAB CR PO SCH ×2 (09:18→17:57)
[2018-08-04] MEDS: PANTOPRAZOLE SOD 40 MG TABEC PO SCH (09:18)
[2018-08-04] MEDS: SODIUM BICARBONATE 650 MG TAB PO SCH ×2 (09:18→17:57)
[2018-08-04] MEDS: METOPROLOL SUCCINATE 25 MG TAB XL PO SCH ×2 (09:19→17:57)
[2018-08-04] MEDS: LIDOCAINE 5% PATCH TP SCH (09:19)
[2018-08-04] MEDS: METHYLPREDNISOLONE SOD SUCC 40 MG/ML VIAL 1ML IV SCH (10:35)
--- NOTE | 2018-08-04 10:35 | NUR ---
ST NOTE: Pt is well known to Speech Therapy. MBS completed in May of 2017 with severe pharyngeal residue after swallow, aspiraiton and penetration not visualized, however pt was at high risk for aspiration if not following strict swallow precautions. NMES was initiated in acute care setting recommended in OP setting, pt declined services in OP setting. Copy of MBS given to CASSIUS Samuels with recommendation to repeat MBS and initiate NMES in acute care setting.
[2018-08-04] MEDS ORDERED: ONDANSETRON HCL 4 MG ORAL DISINTEGRATING TAB PO PRN (13:30)
--- NOTE | 2018-08-04 17:24 | NUR ---
ST NOTE: Orders acknowledged for NMES and MBS, to be completed 08-05-18. Handoff to CASSIUS Samuels
[2018-08-04] MEDS ORDERED: FUROSEMIDE INJ 10 MG/ML 4 ML VIAL IV NR (18:30)
[2018-08-04] MEDS: ATORVASTATIN 20 MG TAB PO SCH (21:04)
--- NOTE | 2018-08-04 22:00 | NUR ---
The patient is laying in bed HOB elevated watching TV. at bedside. Reports no pain/ discomfort at this time. Nasal Cannula at 2L. No sob reported. lung sounds are diminished. abdomen soft and non distended. pulses intact, Edema in bilateral lower extremities noted. Patient has discoloration from the right hip all the way down to his foot on the side and towards the back part of his legs. Patient States he received and injection and it created a hematoma. Right triple lumen IJ patent, flushes easily and has brisk blood return. Dressing C/D/I. Also has a right had 22G PIV saline locked. Bed lowered, wheels locked and call light within reach. Addendum: 08/05/18 at 0627 by Ramonita Sahu RN right subclavian triple lumen.
--- NOTE | 2018-08-04 22:27 | NUR ---
Report called to nurse Shipman. Patient transported via WC with all pt belongings by RN at 0. No acute signs of distress noted.
[2018-08-05] VITALS (9 sets, daily range): BP systolic 115–149; BP diastolic 65–81
[2018-08-05] MEDS: NITROGLYCERIN 2% OINT 1 GM PKT TOP SCH ×4 (00:30→17:34)
[2018-08-05] MEDS: IPRATROPIUM BROMIDE 0.02% 2.5 ML NEB NEB SCH ×6 (00:36→18:25)
[2018-08-05] MEDS ORDERED: SODIUM CHLORIDE 0.9% 250ML 250 ML ONE (05:25)
[2018-08-05] MEDS: CEFEPIME 1GM/NS 0.9% 50 ML 50 ML IV SCH ×2 (05:45→17:34)
--- NOTE | 2018-08-05 06:27 | NUR ---
The patient is laying in bed, awake and alert. He is watching TV. Reports no pain or discomfort at this time. Antibiotic running through Right subclavian proximal port. Line patent. HOB elevated, bed low and wheels locked. Call light within reach.
[2018-08-05 06:41] LABS: BASOPHILS % 0.1 % (0.0-1.0); HEMATOCRIT 27.5 % (38.2-49.6); HEMOGLOBIN 9.3 g/dL (14.0-18.0); LYMPHOCYTES # (AUTO) 0.5 (1.0-3.2); MEAN CORPUSCULAR HEMOGLOBIN 34.3 pg (28-32); MEAN CORPUSCULAR HGB CONC 33.8 g/dL (31-35); MEAN CORPUSCULAR VOLUME 101.5 fL (81-99); MONOCYTES # (AUTO) 0.8 (0.2-0.8); MONOCYTES % 6.1 % (4.4-11.3); NEUTROPHILS % 87.7 % (38.7-80.0); PLATELET COUNT 135 x10e3/uL (140-360); RED BLOOD COUNT 2.71 x10e6/uL (4.3-5.7); RED CELL DISTRIBUTION WIDTH 13.2 % (11.7-14.4)
[2018-08-05 06:56] LABS: ANION GAP 11.6 mmol/L (8-16); CALCIUM 8.4 mg/dL (8.4-10.2); CREATININE, SERUM 1.57 mg/dL (0.72-1.25); POTASSIUM 3.6 mmol/L (3.5-5.1)
--- NOTE | 2018-08-05 07:30 | NUR ---
REC'D PT AAOX3, AT BEDSIDE, NO S/S OF DISTRESS, 2L/MIN OF O2 RUNNING VIA NC. PT HAD BOWEL MOVEMENT ON BSC. 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 SIDE RAILS UP X2, CALL CHRISTY WITHIN REACH, AND BED IN LOWEST POSITION.
[2018-08-05] MEDS: ISOSORBIDE MONONITRATE 30 MG TAB CR PO SCH ×2 (09:12→17:34)
[2018-08-05] MEDS: PANTOPRAZOLE SOD 40 MG TABEC PO SCH (09:12)
[2018-08-05] MEDS: SODIUM BICARBONATE 650 MG TAB PO SCH ×2 (09:12→17:33)
[2018-08-05] MEDS: FERROUS SULFATE 325 MG TAB PO SCH (09:12)
[2018-08-05] MEDS: LIDOCAINE 5% PATCH TP SCH (09:13)
[2018-08-05] MEDS: METOPROLOL SUCCINATE 25 MG TAB XL PO SCH ×2 (09:13→17:34)
[2018-08-05] MEDS: VANCOMYCIN 1GM/NS 250 ML 250 ML IV SCH (09:15)
--- NOTE | 2018-08-05 12:16 | NUR ---
CM SPOKE TO PATIENT AND PATIENT JOSÉ ANTONIO AT BEDSIDE REGARDING IMM LETTER. IMM LETTER GIVEN WITH EXPLANATION BASED ON ANTICIPATED DISCHARGE DATE. ORIGINAL SIGNED BY PATIENT REQUESTED BY PATIENT THAT IS DOING PT AND PLACED IN CHART; COPY OF ORIGINAL DOCUMENT GIVEN TO PATIENT AT BEDSIDE AND PLACED IN CARE TRANSITION FOLDER. CM CONTACT INFORMATION GIVEN TO PATIENT FOR ANY NEEDS OR CONCERNS. PATIENT WITH NO FURTHER QUESTIONS.
[2018-08-05 13:49] LABS: ANISOCYTOSIS SLIGHT; HYPOCHROMASIA SLIGHT; LYMPHOCYTES % (MANUAL) 9 % (19-48); MONOCYTES % (MANUAL) 6 % (3.4-9.0); PLATELET ESTIMATE ADEQUATE; PLATELET MORPHOLOGY COMMENT NORMAL; RBC MORPHOLOGY COMMENT NORMAL
--- NOTE | 2018-08-05 14:00 | NUR ---
PT ON LEFT SIDE IN SEMI-CHAVEZ'S POSITION, AT BEDSIDE. NO S/S OF DISTRESS. NEB BREATHING TX BEING ADMINISTERED. LIBIA HOSE APPLIED TO LOWER EXTREMITIES PER DR. CHICAS ORDERS. SIDE RAILS UP X2, CALL CHRISTY WITHIN REACH, AND BED IN LOWEST POSITION.
--- NOTE | 2018-08-05 18:00 | NUR ---
SPEECH THERAPIST NOTIFIED NURSE ABOUT MODIFIED BA SWALLOW RESULTS. PT AND ARE TO DISCUSS THICKEN LIQUIDS TREATMENT WHILE SWALLOWING ISSUE IS RESOLVED.
--- NOTE | 2018-08-05 18:24 | NUR ---
PT IS SITTING ON CHAIR WITH O2 RUNNING AT 2L/MIN. AT BEDSIDE. NO S/S OF DISTRESS. ALVAREZ INTACT.
--- NOTE | 2018-08-05 19:00 | NUR ---
patient received awake, alert, sitting up in chair. no c/o pain noted. respirations even and unlabored. 02/2l/nc in use. pm assessment complete. patient instructed to call for assistance when needed.
[2018-08-05] MEDS: ATORVASTATIN 20 MG TAB PO SCH (20:00)
[2018-08-06] VITALS (8 sets, daily range): BP systolic 111–138; BP diastolic 55–73
[2018-08-06] MEDS: IPRATROPIUM BROMIDE 0.02% 2.5 ML NEB NEB SCH ×6 (00:17→18:51)
[2018-08-06] MEDS: CEFEPIME 1GM/NS 0.9% 50 ML 50 ML IV SCH ×2 (05:15→17:06)
[2018-08-06] MEDS: NITROGLYCERIN 2% OINT 1 GM PKT TOP SCH ×4 (05:15→17:06)
[2018-08-06] MEDS: ACETAMINOPHEN/CODEINE 300MG - 30MG TAB PO PRN (05:17)
--- NOTE | 2018-08-06 05:17 | NUR ---
patient medicated with tylenol #3 1 po for c/o left lower back pain 09/05 at this time.
--- NOTE | 2018-08-06 06:35 | NUR ---
johns catheter d/c'd at this time per orders. patient due to void [id number]. patient verbalizes understanding of this.
--- NOTE | 2018-08-06 07:25 | NUR ---
pt up in bed no distress noted,denies pain,dtv by 1400
[2018-08-06] MEDS: VANCOMYCIN 1GM/NS 250 ML 250 ML IV SCH (08:36)
[2018-08-06] MEDS: METHYLPREDNISOLONE SOD SUCC 40 MG/ML VIAL 1ML IV SCH (08:36)
[2018-08-06] MEDS: FERROUS SULFATE 325 MG TAB PO SCH (08:38)
[2018-08-06] MEDS: LIDOCAINE 5% PATCH TP SCH (08:39)
[2018-08-06] MEDS: PANTOPRAZOLE SOD 40 MG TABEC PO SCH (08:39)
[2018-08-06] MEDS: ISOSORBIDE MONONITRATE 30 MG TAB CR PO SCH ×2 (08:39→17:06)
[2018-08-06] MEDS: SODIUM BICARBONATE 650 MG TAB PO SCH ×2 (08:39→17:06)
[2018-08-06] MEDS: METOPROLOL SUCCINATE 25 MG TAB XL PO SCH ×2 (08:39→17:06)
--- NOTE | 2018-08-06 09:52 | Progress Note ---
DATE: SUBJECTIVE: The patient is an 87-year-old male comes in with sepsis secondary to pneumonia, acute renal failure with CKD, history of anemia, history of asbestosis, and also history of hypertension and cholesterolemia. Currently, the patient is breathing okay. Complains of pain in the lower extremities, especially where the LIBIA hoses are cutting him off. No other complaints. MEDICATIONS: Acetaminophen, cefepime, vancomycin, Solu-Medrol 20 mg, nitroglycerin, and sodium bicarbonate twice a day. The patient is also on isosorbide dinitrate and metoprolol 50 mg twice a day. PHYSICAL EXAMINATION: VITAL SIGNS: Temperature is 96.8, pulse of 85, respirations of 18, blood pressure is 132/73, pulse oximetry of 100% on 2 L of oxygen. HEENT: Normocephalic, atraumatic. LUNGS: Decreased breath sounds, positive for fine crackles in lower bases. CARDIOVASCULAR: S1, S2 normal. ABDOMEN: Soft, nontender, nondistended. EXTREMITIES: No clubbing. No cyanosis. Positive for edema. NEUROLOGIC: Nonfocal. LABORATORY VALUES: White count is 13,000 from yesterday, hemoglobin of 9.3, hematocrit of 27.5 with elevated indices. The patient's microbiology, no growth. No cultures since 08/01/2018. The patient's coags are normal. INR was 3.14, on 08/04/2018 it is 1.14. Sodium of 141, potassium was 3.6, BUN of 17, creatinine of 1.57, down from 2.33 at admission. ASSESSMENT: 1. Pneumonia secondary to sepsis. Continue with antibiotic at this time. 2. Acute renal failure. Dr. Montgomery is on the case. The patient is on bicarb and also fluid resuscitation. 3. Anemia. Continue monitoring the H and H, the patient's hypertension, hyperlipidemia, and coronary artery disease, continue with CV medications. 4. Pneumonia secondary to aspiration. FURTHER RECOMMENDATION AND CLINICAL COURSE: The patient has been encouraged to walk. PT is on board and also incentive spirometry by the bedside. Further recommendation per clinical course. MD SAPNA Smith/MODL /[id number]
[2018-08-06] MEDS ORDERED: FUROSEMIDE INJ 10 MG/ML 4 ML VIAL IV ONE (10:00)
--- NOTE | 2018-08-06 14:18 | NUR ---
Nutrition Screen Note RD Recommendation for Physician: Continue diet as ordered Plan of Care: RD following, monitoring for adequacy and tolerance Nutrition reason for involvement LOS Primary Diagnose(s): Hypotension hypoxia, leukocytosis Ht:66 in Wt:155.04lbs BMI:25 kg/m2 IBW:142lbs RD Assessment:(08/06/2018) Initial encounter with patient. Pt with a decreased appetite. Offered a commercial beverage, but Pt states that he does not like them. Some biting chewing difficulty due to loose dentures, but can chew and swallow ok. Some occasional nausea, normal BM. Wt has fluctuated due to fluid status. Current Diet: Cardiac diet Malnutrition Evaluation 08/06/2018 The patient does not meet criteria for a specified degree of malnutrition at this time. Will re-evaluate at follow-up as appropriate. Diet Education Needs Assessment: Diet education not indicated. Diet Adequacy: Meeting calorie needs, Meeting protein needs, Meeting fluid needs Tolerance: Tolerating PO Nutrition Care Level: michell Carranza RD, LD, CNSC
--- NOTE | 2018-08-06 17:09 | NUR ---
PT UP IN CHAIR DENIES PAIN NO DISTRESS NOTED
--- NOTE | 2018-08-06 19:00 | NUR ---
Completed bedside rounds with morning nurse. Pt alert and orient to name. Sitting up in bed watching TV. Denies pain at this time. Call gunderson within reach. Will continue to monitor.
[2018-08-06] MEDS: ATORVASTATIN 20 MG TAB PO SCH (21:00)
--- NOTE | 2018-08-06 21:45 | NUR ---
Report given to oncoming nurse. Pt alert and orient. Denies pain at this time. No acute distress noted.
[2018-08-07] VITALS (7 sets, daily range): BP systolic 122–153; BP diastolic 57–94
[2018-08-07] MEDS: IPRATROPIUM BROMIDE 0.02% 2.5 ML NEB NEB SCH ×6 (00:32→23:30)
[2018-08-07] MEDS: ACETAMINOPHEN/CODEINE 300MG - 30MG TAB PO PRN ×2 (02:01→23:03)
--- NOTE | 2018-08-07 03:41 | NUR ---
Patient laying in bed with HOB slightly elevated. No sob noted. No acute distress noted. Patient in stable condition, will continue to monitor.
[2018-08-07] MEDS: CEFEPIME 1GM/NS 0.9% 50 ML 50 ML IV SCH ×2 (05:15→16:57)
[2018-08-07] MEDS: NITROGLYCERIN 2% OINT 1 GM PKT TOP SCH ×2 (06:00)
[2018-08-07 06:36] LABS: BASOPHILS % 0.1 % (0.0-1.0); HEMOGLOBIN 9.3 g/dL (14.0-18.0); LYMPHOCYTES # (AUTO) 0.8 (1.0-3.2); LYMPHOCYTES % 6.6 % (18.0-39.1); MEAN CORPUSCULAR HEMOGLOBIN 34.4 pg (28-32); MEAN CORPUSCULAR HGB CONC 34.4 g/dL (31-35); MONOCYTES # (AUTO) 0.7 (0.2-0.8); MONOCYTES % 5.3 % (4.4-11.3); NEUTROPHILS # (AUTO) 10.5 (2.1-6.9); PLATELET COUNT 111 x10e3/uL (140-360); RED CELL DISTRIBUTION WIDTH 12.8 % (11.7-14.4)
[2018-08-07 06:55] LABS: ANION GAP 8.7 mmol/L (8-16); CALCIUM 8.1 mg/dL (8.4-10.2); CREATININE, SERUM 1.19 mg/dL (0.72-1.25); POTASSIUM 3.7 mmol/L (3.5-5.1)
--- NOTE | 2018-08-07 07:30 | NUR ---
pt up in bed ,denies pain ,o2 [address],no distress noted.
[2018-08-07] MEDS: VANCOMYCIN 1GM/NS 250 ML 250 ML IV SCH (08:34)
[2018-08-07] MEDS: ISOSORBIDE MONONITRATE 30 MG TAB CR PO SCH ×2 (08:34→16:56)
[2018-08-07] MEDS: FERROUS SULFATE 325 MG TAB PO SCH (08:34)
[2018-08-07] MEDS: LIDOCAINE 5% PATCH TP SCH (08:39)
[2018-08-07] MEDS: SODIUM BICARBONATE 650 MG TAB PO SCH ×2 (08:39→16:56)
[2018-08-07] MEDS: PANTOPRAZOLE SOD 40 MG TABEC PO SCH (08:39)
[2018-08-07] MEDS: METOPROLOL SUCCINATE 25 MG TAB XL PO SCH ×2 (08:39→16:56)
--- NOTE | 2018-08-07 12:27 | Progress Note ---
DATE: SUBJECTIVE: An 87-year-old man comes in with bronchitis and also pneumonia. The patient is currently asymptomatic, feeling stronger, feeling better, walked with Physical Therapy yesterday and was in good spirits. The patient's fluid balance has been restored. The patient's legs are better. Has been given 40 mg of Lasix 1 time dose yesterday. OBJECTIVE: VITAL SIGNS: Temperature is 97.3, pulse of 90, respiration of 20, blood pressure is 153/74, pulse oximetry of 99%. HEENT: Normocephalic, atraumatic. Pupils are reactive to light and accommodation. CVS: S1, S2 normal. Regular rhythm. ABDOMEN: Nontender, nondistended. EXTREMITIES: Lower extremity positive for edema, 2+. Positive for ecchymosis throughout the lower extremity. LABORATORY VALUES: White count is 12,000 down from 13,000, hemoglobin of 9.3, hematocrit of 27, MCV elevated, MCH elevated too. The patient's platelet count is 111. Chemistry, sodium of 139, potassium 3.7, BUN of 48, creatinine of 1.19. Toxicology, vancomycin was 16.5. Urine has been negative. ASSESSMENT: 1. Sepsis secondary to pneumonia. Continue on antibiotic at this time. The patient is improving steadily clinically much better. 2. Acute renal failure, better. Creatinine has been better. The patient is on bicarb and fluid resuscitation too. 3. Anemia. Continue monitoring H and H. looks like iron deficiency. We will check iron panel. 4. Aspiration pneumonia also. PLAN: Plan is to continue monitoring the patient. Physical Therapy is working with the patient. DISPOSITION: Home in 1 to 2 days on antibiotics. Further recommendation per clinical course. MD LENA SmithJ/MODL /[id number]
--- NOTE | 2018-08-07 16:59 | NUR ---
PT UP IN BED NO DISTRESS NOTED,DENIES PAIN
[2018-08-07] MEDS: ATORVASTATIN 20 MG TAB PO SCH (21:00)
[2018-08-08] VITALS (8 sets, daily range): BP systolic 127–143; BP diastolic 61–92
[2018-08-08] MEDS: IPRATROPIUM BROMIDE 0.02% 2.5 ML NEB NEB SCH ×5 (03:02→23:20)
[2018-08-08] MEDS: CEFEPIME 1GM/NS 0.9% 50 ML 50 ML IV SCH ×2 (05:10→17:13)
--- NOTE | 2018-08-08 05:21 | NUR ---
PT AWAKE, NO DISTRESS NOTED, VS STABLE, IV INFUSING, SCD'S ON PT, CALL LIGHT IN REACH
--- NOTE | 2018-08-08 06:37 | NUR ---
PT SITTING IN BED, CALL LIGHT IN REACH, NO DISTRESS NOTED, VS STABLE
--- NOTE | 2018-08-08 07:20 | NUR ---
PATIENT IN BED RESTING WITH NO RESPIRATORY DISTRESS. BRUISES TO TO RIGHT SIDE OF BODY FROM HIP TO FOOT. DENIED PAIN. TELEMETRY BOX IN PLACE. BED IN LOWER POSITION, CALL LIGHT AT REACH.
--- NOTE | 2018-08-08 08:16 | Diagnostic Imaging Report ---
EXAM: Modified barium swallow with Speech Pathologist INDICATION: ^R/O Aspiration ^[id number] ^[id number] COMPARISON: None available. RADIATION DOSE: Fluoroscopy Time: 1.8 min Dose (Kerma) Area Product: 2.30 Gycm2 Air Kerma (AK) value has been reviewed. It is below the limits set by the Radiation Protocol Committee (RPC) committee. FINDINGS: See impression IMPRESSION: Laryngeal penetration and intermittent trace silent aspiration was noted upon administration of thin liquid consistency. Please see speech pathology report for detailed description and recommendations. Signed by: Dr. Chucho Awad M.D. on 08/08/2018 8:13 AM
[2018-08-08] MEDS: SODIUM BICARBONATE 650 MG TAB PO SCH ×2 (09:17→17:13)
[2018-08-08] MEDS: PANTOPRAZOLE SOD 40 MG TABEC PO SCH (09:17)
[2018-08-08] MEDS: ISOSORBIDE MONONITRATE 30 MG TAB CR PO SCH ×2 (09:17→17:13)
[2018-08-08] MEDS: FERROUS SULFATE 325 MG TAB PO SCH (09:17)
[2018-08-08] MEDS: LIDOCAINE 5% PATCH TP SCH (09:18)
[2018-08-08] MEDS: METOPROLOL SUCCINATE 25 MG TAB XL PO SCH ×2 (09:18→17:13)
--- NOTE | 2018-08-08 11:14 | NUR ---
CM SPOKE TO PATIENT AND PATIENT JOSÉ ANTONIO AT BEDSIDE REGARDING IMM LETTER. IMM LETTER GIVEN WITH EXPLANATION BASED ON ANTICIPATED DISCHARGE DATE. ORIGINAL SIGNED BY PATIENT REQUESTED BY PATIENT. DOCUMENT PLACED IN CHART; COPY OF ORIGINAL DOCUMENT GIVEN TO PATIENT AT BEDSIDE AND PLACED IN CARE TRANSITION FOLDER. CM CONTACT INFORMATION GIVEN TO PATIENT FOR ANY NEEDS OR CONCERNS. PATIENT WITH NO FURTHER QUESTIONS.
--- NOTE | 2018-08-08 11:24 | NUR ---
BED SIDE SWALLOWING EVALUATION COMPLETED, PATIENT OK TO SWALLOW, WILL FOLLOW UP OUT PATIENT PER SPEECH THERAPIST. PATIENT IN BED WITH CALL LIGHT AT REACH.
[2018-08-08] MEDS ORDERED: FUROSEMIDE INJ 10 MG/ML 4 ML VIAL IV ONE (14:00)
--- NOTE | 2018-08-08 15:00 | NUR ---
PATIENT NOTED WITH PITTING EDEMA TO LOWER EXTREMITIES. MD NOTIFIED, NEW ORDER RECEIVED AND IMPLEMENTED.
--- NOTE | 2018-08-08 19:14 | NUR ---
PT IS RESTING IN BED WITH FAMILY AT BEDSIDE. NO RESPIRATORY DISTRESS NOTED. BED IN THE LOWEST POSITION, LOCKED, AND CALL LIGHT WITHIN REACH. WILL CONTINUE TO MONITOR.
[2018-08-08] MEDS ORDERED: ATORVASTATIN CA80 MG PO (20:05)
[2018-08-08] MEDS ORDERED: LISINOPRIL10 MG PO (20:06)
[2018-08-08] MEDS ORDERED: ASPIRIN325 MG PO (20:08)
[2018-08-08] MEDS: ATORVASTATIN 20 MG TAB PO SCH (21:01)
--- NOTE | 2018-08-08 23:04 | Progress Note ---
DATE: SUBJECTIVE: The patient is an 87-year-old male comes in with pneumonia. The patient also has history of CAROLA, coronary artery disease, and CHF. The patient complains of bilateral lower extremity edema and ecchymoses in the lower extremities. OBJECTIVE: VITAL SIGNS: The patient's vital signs today temperature is 96, pulse of 89, respirations of 19, and blood pressure is 143/61. HEENT: Normocephalic, atraumatic. Pupils are reactive. CVS: S1 and S2 distant. LUNGS: Decreased air entry. Positive for rhonchi. ABDOMEN: Nontender and nondistended. EXTREMITIES: Bilateral edema present. ASSESSMENT AND PLAN: Pneumonia. The patient has bilateral lower extremity edema. A venous Doppler has been ordered. The patient will continue monitoring his electrolytes and also check in his CKD, creatinine, although was better. Further recommendation per clinical course and also depending on the Doppler. We will continue on his medications at this time. MD SAPNA Smith/MODL /[id number]
[2018-08-09] VITALS (9 sets, daily range): BP systolic 111–143; BP diastolic 57–63
[2018-08-09] MEDS: IPRATROPIUM BROMIDE 0.02% 2.5 ML NEB NEB SCH ×6 (03:10→23:12)
[2018-08-09] MEDS: CEFEPIME 1GM/NS 0.9% 50 ML 50 ML IV SCH ×2 (05:06→17:10)
[2018-08-09 06:19] LABS: BASOPHILS % 0.1 % (0.0-1.0); EOSINOPHILS # (AUTO) 0.1 (0.0-0.4); EOSINOPHILS % 1.1 % (0.0-6.0); HEMATOCRIT 28.4 % (38.2-49.6); HEMOGLOBIN 9.7 g/dL (14.0-18.0); LYMPHOCYTES % 9.8 % (18.0-39.1); MEAN CORPUSCULAR HEMOGLOBIN 34.8 pg (28-32); MEAN CORPUSCULAR HGB CONC 34.2 g/dL (31-35); MEAN CORPUSCULAR VOLUME 101.8 fL (81-99); MONOCYTES # (AUTO) 0.7 (0.2-0.8); MONOCYTES % 6.4 % (4.4-11.3); NEUTROPHILS # (AUTO) 8.3 (2.1-6.9); NEUTROPHILS % 79.4 % (38.7-80.0); PLATELET COUNT 113 x10e3/uL (140-360); RED BLOOD COUNT 2.79 x10e6/uL (4.3-5.7)
[2018-08-09 06:36] LABS: ANION GAP 9.5 mmol/L (8-16); BLOOD UREA NITROGEN 30 mg/dL (7-26); BUN/CREATININE RATIO 28 (6-25); CARBON DIOXIDE 26 mmol/L (22-29); CHLORIDE 103 mmol/L (98-107); CREATININE, SERUM 1.07 mg/dL (0.72-1.25); EST GLOMERULAR FILTRATION RATE > 60 ML/MIN (60-); GLUCOSE 79 mg/dL (74-118); POTASSIUM 3.5 mmol/L (3.5-5.1); SODIUM 135 mmol/L (136-145)
--- NOTE | 2018-08-09 07:10 | NUR ---
PATIENT IN BED RESTING WITH NO RESPIRATORY DISTRESS. PITTING EDEMA TO EXTREMITIES, MD NOTIFIED, NEW ORDER RECEIVED. BED IN LOWER POSITION, CALL LIGHT AT REACH.
[2018-08-09] MEDS ORDERED: FUROSEMIDE INJ 10 MG/ML 4 ML VIAL IV NR (08:00)
[2018-08-09] MEDS: METOPROLOL SUCCINATE 25 MG TAB XL PO SCH ×2 (09:00→17:10)
[2018-08-09] MEDS: SODIUM BICARBONATE 650 MG TAB PO SCH ×2 (09:00→17:09)
[2018-08-09] MEDS: PANTOPRAZOLE SOD 40 MG TABEC PO SCH (09:00)
[2018-08-09] MEDS: ISOSORBIDE MONONITRATE 30 MG TAB CR PO SCH ×2 (09:00→17:09)
[2018-08-09] MEDS: FERROUS SULFATE 325 MG TAB PO SCH (09:00)
[2018-08-09] MEDS: LIDOCAINE 5% PATCH TP SCH (10:08)
--- NOTE | 2018-08-09 10:42 | Progress Note ---
DATE: SUBJECTIVE: The patient is here for pneumonia, history of asbestosis, history of chronic bronchitis and history of chronic atrial fibrillation. The patient is continuing to have some 3rd spacing weeping from his hand, Lasix was given yesterday at 40 mg. A doppler was done yesterday too. The patient is currently asymptomatic except for pain in the lower extremities and also swelling of lower extremities and in the right upper arm with weeping wound. OBJECTIVE: VITAL SIGNS: Temperature is 95.3, pulse of 78, respirations of 18, blood pressure is 143/58, and pulse oximetry of 100% on 2 L of oxygen. HEENT: Normocephalic, atraumatic. Pupils are reactive to light and accommodation. CVS: S1, S2. Regular. ABDOMEN: Nontender, nondistended. EXTREMITIES: Positive for 2+ edema on upper extremity and lower extremity. Positive for weeping wound on the right upper extremity. LABORATORY VALUES: Today's white count is 10.46, hemoglobin was 9.7, hematocrit 29.5. Chemistries pending. Potassium was 3.7 yesterday, BUN of 48, and creatinine of 1.19. ASSESSMENT AND PLAN: Pneumonia. Continue with IV antibiotic. Bilateral lower extremity edema and 3rd spacing, gave additional 40 mg of Lasix. Continue checking his lytes. CKD, continue monitoring the patient. Venous Doppler bilaterally of the lower extremity shows no DVT at this time. MD LENA SmithJ/MODL /[id number]
--- NOTE | 2018-08-09 12:30 | NUR ---
PATIENT SITTING UP IN BED EATING LUNCH, NO DIFFICULTY SWALLOWING OBSERVED. CALL LIGHT AT REACH.
[2018-08-09 14:31] LABS: ANISOCYTOSIS SLIGHT; EOSINOPHILS % (MANUAL) 1 % (0-7); HYPOCHROMASIA SLIGHT; LYMPHOCYTES % (MANUAL) 8 % (19-48); MONOCYTES % (MANUAL) 9 % (3.4-9.0); MYELOCYTES % (MANUAL) 3 % (0-0); NEUTROPHILS % (MANUAL) 79 % (40-74); PLATELET ESTIMATE SLIGHTLY INCREASED; PLATELET MORPHOLOGY COMMENT NORMAL; RBC MORPHOLOGY COMMENT NORMAL
--- NOTE | 2018-08-09 16:44 | NUR ---
PATIENT OUT OF BED TO CHAIR TALKING TO FAMILY MEMBER VISITING. CALL LIGHT AT REACH.
[2018-08-09] MEDS: FUROSEMIDE 40 MG TAB PO SCH (18:38)
--- NOTE | 2018-08-09 19:15 | NUR ---
PT IS IN BED RECEIVING A BREATHING TREATMENT. NO RESPIRATORY DISTRESS NOTED. BED IN THE LOWEST POSITION, LOCKED, AND CALL LIGHT WITHIN REACH. WILL CONTINUE TO MONITOR.
[2018-08-09] MEDS: VANCOMYCIN 1GM/NS 250 ML 250 ML IV SCH (20:52)
[2018-08-09] MEDS: ATORVASTATIN 20 MG TAB PO SCH (20:52)
[2018-08-10] VITALS (7 sets, daily range): BP systolic 115–148; BP diastolic 57–73
[2018-08-10] MEDS: IPRATROPIUM BROMIDE 0.02% 2.5 ML NEB NEB SCH ×6 (00:12→19:48)
[2018-08-10] MEDS: CEFEPIME 1GM/NS 0.9% 50 ML 50 ML IV SCH ×2 (04:10→16:03)
--- NOTE | 2018-08-10 07:00 | NUR ---
RECEIVED PT RESTING IN BED, EYES CLOSED RESPIRATIONS EVEN AND NON LABORED. CALL LIGHT WITHIN REACH. BED LOCKED AND IN LOWEST POSITION. WILL CONTINUE TO MONITOR.
[2018-08-10] MEDS: ISOSORBIDE MONONITRATE 30 MG TAB CR PO SCH ×2 (08:03→16:03)
[2018-08-10] MEDS: FUROSEMIDE 40 MG TAB PO SCH (08:03)
[2018-08-10] MEDS: FERROUS SULFATE 325 MG TAB PO SCH (08:03)
[2018-08-10] MEDS: SODIUM BICARBONATE 650 MG TAB PO SCH ×2 (08:03→16:03)
[2018-08-10] MEDS: PANTOPRAZOLE SOD 40 MG TABEC PO SCH (08:03)
[2018-08-10] MEDS: LIDOCAINE 5% PATCH TP SCH (08:03)
[2018-08-10] MEDS: METOPROLOL SUCCINATE 25 MG TAB XL PO SCH ×2 (08:03→16:03)
--- NOTE | 2018-08-10 11:17 | Progress Note ---
DATE: SUBJECTIVE: The patient is an 87-year-old man with pneumonia, third spacing; peripheral edema; and hypertension. The patient is currently walking about 200 feet with physical therapy. Continues to have pedal edema and third spacing with seepage on the right and lower extremities too. OBJECTIVE: VITAL SIGNS: Temperature is 96.8, pulse of 94, blood pressure is 148/73, and pulse oximetry of 96%. HEENT: Normocephalic, atraumatic. Pupils are reactive to light and accommodation. CVS: S1, S2. Regular. LUNGS: Decreased air entry plus rhonchi. ABDOMEN: Nontender and nondistended. EXTREMITIES: 2+ edema. LABORATORY VALUES: Hemoglobin is 9.7 and hematocrit of 28.4. Chemistries done yesterday were 30 and 1.07. Coags were normal. INR is 1.14. MEDICATIONS: The patient is currently on cefepime; vancomycin; pantoprazole; ferrous sulfate; ipratropium bromide; nitroglycerin, which has been discontinued; Lasix 40 mg daily; and atorvastatin 40 mg. ASSESSMENT AND PLAN: The patient with pneumonia. Continue with IV antibiotics. Bilateral lower extremity edema, on Lasix 40. Lytes to be checked today. Chronic kidney disease, continue monitoring. Venous Doppler for bilateral lower extremities have been normal. No DVT at this time. DISPOSITION: Probable discharge in 1 to 2 days. The patient discharge depending on creatinine functions today and also H and H. MD LENA SmithJ/MODL /[id number]
--- NOTE | 2018-08-10 14:22 | NUR ---
CM SPOKE TO PATIENT AT BEDSIDE REGARDING IMM LETTER. IMM LETTER GIVEN WITH EXPLANATION BASED ON ANTICIPATED DISCHARGE DATE. ORIGINAL SIGNED AND PLACED IN CHART; COPY OF ORIGINAL DOCUMENT GIVEN TO PATIENT AT BEDSIDE AND PLACED IN CARE TRANSITION FOLDER. CM CONTACT INFORMATION GIVEN TO PATIENT FOR ANY NEEDS OR CONCERNS. PATIENT WITH NO FURTHER QUESTIONS.
--- NOTE | 2018-08-10 19:00 | NUR ---
Completed bedside rounds with morning nurse. Pt alert and orient to name. Lying in bed HOB 45 degrees. Denies pain at this time. Call gunderson within reach. Will continue to monitor.
[2018-08-10] MEDS: ATORVASTATIN 20 MG TAB PO SCH (20:41)
[2018-08-10] MEDS: VANCOMYCIN 1GM/NS 250 ML 250 ML IV SCH (20:41)
[2018-08-11] VITALS (8 sets, daily range): BP systolic 129–154; BP diastolic 62–81
[2018-08-11] MEDS: IPRATROPIUM BROMIDE 0.02% 2.5 ML NEB NEB SCH ×6 (00:30→20:09)
[2018-08-11] MEDS: CEFEPIME 1GM/NS 0.9% 50 ML 50 ML IV SCH ×2 (05:15→17:15)
[2018-08-11 06:38] LABS: BASOPHILS % 0.2 % (0.0-1.0); EOSINOPHILS # (AUTO) 0.1 (0.0-0.4); EOSINOPHILS % 1.1 % (0.0-6.0); HEMATOCRIT 28.8 % (38.2-49.6); HEMOGLOBIN 9.6 g/dL (14.0-18.0); LYMPHOCYTES % 11.5 % (18.0-39.1); MEAN CORPUSCULAR HEMOGLOBIN 34.2 pg (28-32); MEAN CORPUSCULAR HGB CONC 33.3 g/dL (31-35); MEAN CORPUSCULAR VOLUME 102.5 fL (81-99); MONOCYTES # (AUTO) 0.7 (0.2-0.8); MONOCYTES % 8.8 % (4.4-11.3); NEUTROPHILS # (AUTO) 6.3 (2.1-6.9); NEUTROPHILS % 75.7 % (38.7-80.0); PLATELET COUNT 125 x10e3/uL (140-360); RED BLOOD COUNT 2.81 x10e6/uL (4.3-5.7); RED CELL DISTRIBUTION WIDTH 13.4 % (11.7-14.4)
--- NOTE | 2018-08-11 06:40 | NUR ---
Rounds with Dr. Herrera. Pt digna. Possible d/c after Dr. Montgomery visit. Home health with Pt jin ordered.
--- NOTE | 2018-08-11 07:00 | NUR ---
pt alert resp even and unlabored at this time no distress noted pot able to make needs known no c/o pain when asked, call light in reach.
[2018-08-11 07:04] LABS: CALCIUM 7.9 mg/dL (8.4-10.2); CREATININE, SERUM 1.15 mg/dL (0.72-1.25)
--- NOTE | 2018-08-11 08:08 | Progress Note ---
DATE: SUBJECTIVE: The patient is here for pneumonia, complains of some fatigue and also lower extremity edema, which is better. The patient is currently on albuterol, cefepime, furosemide, ipratropium, isosorbide, metoprolol, pantoprazole, and sodium bicarbonate and vancomycin. Currently asymptomatic. No chest pains. No shortness of breath except for edema. PHYSICAL EXAMINATION: VITAL SIGNS: Temperature is 97.6, pulse of 82, respirations of 20, blood pressure is 137/67, pulse oximetry of 93%. HEENT: Normocephalic, atraumatic. Pupils reactive to light and accommodation. CVS: S1, S2 normal. Regular rate and rhythm. ABDOMEN: Nontender, nondistended. EXTREMITIES: Positive for edema and also third spacing. LABORATORY VALUES: Today's white count was 8.28, hemoglobin of 9.6, hematocrit of 28.8. Chemistry show a sodium of 135 yesterday, pending today's. The patient's creatinine last was 1.07. ASSESSMENT: 1. Pneumonia. 2. Chronic kidney disease. 3. Hypertension. PLAN: Possible discharge the patient today. We will discuss with the consultants and have the patient discharge with home health. MD SAPNA Smith/RANDOLPH /[id number]
[2018-08-11] MEDS: ISOSORBIDE MONONITRATE 30 MG TAB CR PO SCH ×2 (08:18→17:12)
[2018-08-11] MEDS: FUROSEMIDE 40 MG TAB PO SCH (08:18)
[2018-08-11] MEDS: PANTOPRAZOLE SOD 40 MG TABEC PO SCH (08:18)
[2018-08-11] MEDS: METOPROLOL SUCCINATE 25 MG TAB XL PO SCH ×2 (08:18→17:15)
[2018-08-11] MEDS: FERROUS SULFATE 325 MG TAB PO SCH (08:18)
[2018-08-11] MEDS: SODIUM BICARBONATE 650 MG TAB PO SCH (08:18)
[2018-08-11] MEDS: LIDOCAINE 5% PATCH TP SCH (09:00)
[2018-08-11 09:16] LABS: EOSINOPHILS % (MANUAL) 1 % (0-7); LYMPHOCYTES % (MANUAL) 11 % (19-48); MONOCYTES % (MANUAL) 10 % (3.4-9.0); NEUTROPHILS % (MANUAL) 75 % (40-74)
[2018-08-11 09:17] LABS: METAMYELOCYTES % (MANUAL) 2 % (0-0); MYELOCYTES % (MANUAL) 1 % (0-0)
[2018-08-11 09:24] LABS: ANISOCYTOSIS SLIGHT; HYPOCHROMASIA MODERATE; PLATELET ESTIMATE SLIGHTLY DECREASED; PLATELET MORPHOLOGY COMMENT NORMAL; RBC MORPHOLOGY COMMENT NORMAL
--- NOTE | 2018-08-11 16:34 | NUR ---
ORDERS REC'D FOR HOME HEALTH CARE, SKILLED NURSE, MED EDUCATION AND COMPLIANCE, HOME PT/OT EVAL AND TREAT CHOICE LETTER SIGNED BY PT'S FOR [facility] AND PLACED IN CHART COPY TO PT'S ALONG WITH MY CARD CALLED AND FAXED ORDERS TO [facility] PH: [phone] FAX: [phone]
[2018-08-11] MEDS ORDERED: POTASSIUM CHLORIDE 20MEQ/100ML 200 ML IV ONE ×2 (16:45)
[2018-08-11] MEDS ORDERED: BUMETANIDE INJ 0.25MG/ML 4ML VIAL IV SCH (16:51)
--- NOTE | 2018-08-11 19:21 | NUR ---
report given to oncoming nurse, for continued care
[2018-08-11] MEDS: ATORVASTATIN 20 MG TAB PO SCH (21:00)
[2018-08-11] MEDS: SPIRONOLACTONE 25 MG TAB PO SCH (21:00)
[2018-08-11] MEDS: VANCOMYCIN 1GM/NS 250 ML 250 ML IV SCH (22:00)
[2018-08-12] VITALS (8 sets, daily range): BP systolic 113–138; BP diastolic 58–65
[2018-08-12] MEDS: BUMETANIDE INJ 0.25MG/ML 4ML VIAL IV SCH ×3 (01:00→16:13)
[2018-08-12] MEDS: IPRATROPIUM BROMIDE 0.02% 2.5 ML NEB NEB SCH ×5 (03:00→18:50)
[2018-08-12] MEDS: CEFEPIME 1GM/NS 0.9% 50 ML 50 ML IV SCH ×2 (05:37→16:54)
--- NOTE | 2018-08-12 06:30 | NUR ---
Right subclavian drsg. changed. No s/s of infection at catheter site. Old dressing removed. Cleansed catheter site aseptically. New drsg applied. Pt tolerated well.
--- NOTE | 2018-08-12 07:00 | NUR ---
Pt alert and orient. Lying in bed HOB 60 degrees. Denies pain. No distress noted.
--- NOTE | 2018-08-12 07:00 | NUR ---
RECEIVED PATIENT RESTING IN BED. NO ACUTE DISTRESS NOTED. DENIES PAIN OR DISCOMFORT. CALL LIGHT WITHIN REACH. BED IN THE LOWEST POSITION.
[2018-08-12] MEDS: PANTOPRAZOLE SOD 40 MG TABEC PO SCH (08:29)
[2018-08-12] MEDS: FERROUS SULFATE 325 MG TAB PO SCH (08:29)
[2018-08-12] MEDS: ISOSORBIDE MONONITRATE 30 MG TAB CR PO SCH ×2 (08:29→16:13)
[2018-08-12] MEDS: SPIRONOLACTONE 25 MG TAB PO SCH ×3 (08:29→20:09)
[2018-08-12] MEDS: METOPROLOL SUCCINATE 25 MG TAB XL PO SCH ×2 (08:29→16:13)
[2018-08-12] MEDS: LIDOCAINE 5% PATCH TP SCH (08:33)
--- NOTE | 2018-08-12 11:19 | NUR ---
CM TO BEDSIDE TO DISCUSS IMM MEDICARE PATIENT'S RIGHTS. QUESTIONS ANSWERED AND SIGNATURE OBTAINED. PATIENT VERBALIZED UNDERSTANDING OF DISCUSSION. COPY OF LETTER TO PATIENT'S CHART AND IN TRANSITION OF CARE FOLDER AT PATIENT'S BEDSIDE.
--- NOTE | 2018-08-12 12:39 | Progress Note ---
DATE: 08/12/2018 SUBJECTIVE: Feels better. Denies dyspnea. Swelling has improved. OBJECTIVE: VITAL SIGNS: Temperature 97.1, pulse 98, and blood pressure 122/65. CHEST: Clear. SKIN: Bruising in the back. Skin is wrinkled. EXTREMITIES: 1+ edema. ASSESSMENT: 1. Chronic kidney disease, III. 2. Fluid overload. 3. Gluteal hematoma. PLAN: 1. Continue current diuretics. It appears the swelling is improving. Antibiotic treatment for the pneumonia. 2. Hypertension seems to be reasonably well controlled, we will not adjust the medicine. Keep low salt, low fluid intake. MD ALVIN Guzman/RANDOLPH /[id number]
--- NOTE | 2018-08-12 15:19 | NUR ---
NOTIFIED DR. SPRING OF PATIENT HAVING DIFFICULTY URINATING, PER MD BLADDER SCAN AND PLACE ALVAREZ IF > 300.
--- NOTE | 2018-08-12 15:34 | NUR ---
Nutrition Screen Note RD Recommendation for Physician: Continue diet as ordered Plan of Care: RD following, monitoring for adequacy and tolerance Nutrition reason for involvement Follow up Primary Diagnose(s): 1. Chronic kidney disease, III. 2. Fluid overload. 3. Gluteal hematoma. Ht:66 in Wt:155.04lbs BMI:25 kg/m2 IBW:142lbs RD Assessment: (08/12/2018) Pt was discussed during AM rounds. Currently on diuretics. K was repleted. Visited pt in the room. Pt reported fair appetite with 50-75% recorded meal intake. No complains of nausea or vomiting. Pt was not interested in any ONS. Current diet is appropriate and adequate. Please consult as needed. (08/06/2018) Initial encounter with patient. Pt with a decreased appetite. Offered a commercial beverage, but Pt states that he does not like them. Some biting chewing difficulty due to loose dentures, but can chew and swallow ok. Some occasional nausea, normal BM. Wt has fluctuated due to fluid status. Current Diet: Cardiac diet Malnutrition Evaluation 08/06/2018 The patient does not meet criteria for a specified degree of malnutrition at this time. Will re-evaluate at follow-up as appropriate. Diet Education Needs Assessment: Diet education not indicated. Diet Adequacy: Meeting calorie needs, Meeting protein needs Tolerance: Tolerating PO Nutrition Care Level: low Carlota Bustillo, MS, RD, LD
[2018-08-12] MEDS ORDERED: TAMSULOSIN HCL 0.4 MG CAP PO ONE (15:45)
--- NOTE | 2018-08-12 16:00 | NUR ---
BLADDER SCANNED PATIENT, 99ML NOTED.
--- NOTE | 2018-08-12 19:33 | NUR ---
REPORT GIVEN TO ONCOMING NURSE, WALKING ROUNDS DONE. PATIENT IS RESTING IN BED. NO ACUTE DISTRESS NOTED. CALL LIGHT WITHIN REACH. BED IN THE LOWEST POSITION.
--- NOTE | 2018-08-12 19:35 | NUR ---
PT IS RESTING IN BED. NO RESPIRATORY DISTRESS NOTED. BED IN THE LOWEST POSITION, LOCKED, AND CALL LIGHT WITHIN REACH. WILL CONTINUE TO MONITOR.
[2018-08-12] MEDS: TAMSULOSIN HCL 0.4 MG CAP PO SCH (20:09)
[2018-08-12] MEDS: ATORVASTATIN 20 MG TAB PO SCH (20:09)
--- NOTE | 2018-08-12 20:26 | Progress Note ---
DATE: SUBJECTIVE: The patient is here for pneumonia, history of chronic atrial fibrillation, and lower extremity pedal edema. The patient continues to have lower extremity pedal edema today. Continues to have some dysuria. The patient's bladder scan was done, shows only 99 mL of urine. No Rhodes catheter was placed. OBJECTIVE: VITAL SIGNS: Temperature is 96.5, blood pressure is 135/59, pulse of 111, pulse oximetry of 100%. HEENT: Normocephalic, atraumatic. Pupils are reactive to light and accommodation. CVS: S1, S2. Regular. ABDOMEN: Nontender, nondistended. EXTREMITIES: Positive for 2+ edema. LABORATORY VALUES: The patient's hemoglobin is 9.6 and hematocrit of 28.8. Chemistries; sodium of 139, potassium 3.0, BUN of 22, and creatinine of 1.15. ASSESSMENT: 1. Chronic kidney disease. 2. Volume overload. The patient with pneumonia. The patient with hypertension and hyperlipidemia. PLAN: Plan is to continue with diuresis. Continue with antihypertensives and we will continue to monitor the patient along with consultants. MD SAPNA Smith/MODL /[id number]
[2018-08-12] MEDS: VANCOMYCIN 1GM/NS 250 ML 250 ML IV SCH (21:00)
--- NOTE | 2018-08-12 21:22 | NUR ---
PAGE DR SPRING IN REGARD TO A VANC TROUGH OF 18.7. PER DR SPRING HOLD MEDICATION. WILL CONTINUE TO MONITOR.
[2018-08-13] VITALS (10 sets, daily range): BP systolic 94–124; BP diastolic 57–78
[2018-08-13] MEDS: BUMETANIDE INJ 0.25MG/ML 4ML VIAL IV SCH ×3 (01:01→16:23)
[2018-08-13] MEDS: IPRATROPIUM BROMIDE 0.02% 2.5 ML NEB NEB SCH ×7 (03:00→23:05)
[2018-08-13 05:50] LABS: ANION GAP 13.3 mmol/L (8-16); CALCIUM 8.3 mg/dL (8.4-10.2); CREATININE, SERUM 1.36 mg/dL (0.72-1.25); POTASSIUM 3.3 mmol/L (3.5-5.1)
--- NOTE | 2018-08-13 06:50 | NUR ---
RECEIVED PATIENT RESTING IN BED. NO ACUTE DISTRESS NOTED. CALL LIGHT WITHIN REACH. BED IN THE LOWEST POSITION.
[2018-08-13] MEDS ORDERED: POTASSIUM CHLORIDE 20 MEQ TAB CR PO STA (07:40)
[2018-08-13] MEDS: SPIRONOLACTONE 25 MG TAB PO SCH ×3 (09:03→20:51)
[2018-08-13] MEDS: FERROUS SULFATE 325 MG TAB PO SCH (09:03)
[2018-08-13] MEDS: CEFEPIME 1GM/NS 0.9% 50 ML 50 ML IV SCH ×2 (09:03→20:51)
[2018-08-13] MEDS: ISOSORBIDE MONONITRATE 30 MG TAB CR PO SCH ×2 (09:04→16:23)
[2018-08-13] MEDS: METOPROLOL SUCCINATE 25 MG TAB XL PO SCH ×2 (09:04→16:24)
[2018-08-13] MEDS: PANTOPRAZOLE SOD 40 MG TABEC PO SCH (09:04)
[2018-08-13] MEDS: LIDOCAINE 5% PATCH TP SCH (09:50)
--- NOTE | 2018-08-13 11:08 | Progress Note ---
DATE: SUBJECTIVE: The patient is an 87-year-old, comes in with pneumonia. The patient is currently on antibiotics. The patient complains of left-sided rib pain. We will get a lidocaine patch put in today. The patient otherwise is asymptomatic. Continues to have fluid buildup in his lower extremity. The patient is currently on albuterol, atorvastatin, Bumex, fentanyl citrate, ferrous sulfate, ipratropium bromide, isosorbide, lidocaine, metoprolol, nitroglycerin, pantoprazole, spironolactone, tamsulosin, and vancomycin. PHYSICAL EXAMINATION: VITAL SIGNS: Temperature is 96.3, afebrile for the last 48 hours, pulse of 101, respirations of 20, blood pressure is 94/64, and pulse oximetry of 98% on 4 L of oxygen. HEENT: Normocephalic, atraumatic. The patient looks cachectic. CHEST: The patient also has left-sided chest wall pain, lower quadrant. CVS: S1, S2. Regular. ABDOMEN: Nontender, nondistended. EXTREMITIES: No clubbing. No cyanosis. Positive for 2+ edema. LABORATORY VALUES: From 16, hemoglobin of 9.6 and hematocrit of 28.2. Chemistries; 3.3 of potassium today, sodium is 138, BUN is 119, and creatinine of 1.36. ASSESSMENT AND PLAN: 1. Pneumonia. Continue with antibiotics. 2. Volume overload. Continue with IV Lasix. 3. Hyperlipidemia and hypertension. Continue with CV medication. Continue to monitor the patient's in's and out's and fluids. Further recommendation per clinical course. We will keep the patient in-house for now. MD SAPNA Smith/MODL /[id number]
--- NOTE | 2018-08-13 18:06 | NUR ---
NOTIFIED DR. SPRING OF PATIENT'S VANC TROUGH OF 18.7 LAST NIGHT AND DOSE HELD, PER MD MINA TO CONTINUE TONIGHT'S DOSE.
--- NOTE | 2018-08-13 19:06 | NUR ---
REPORT GIVEN TO ONCOMING NURSE, WALKING ROUNDS DONE. PATIENT IS RESTING IN BED, RESPIRATIONS EVEN AND UNLABORED. CALL LIGHT WITHIN REACH. BED IN THE LOWEST POSITION.
--- NOTE | 2018-08-13 19:19 | NUR ---
Bedside report and walking rounds completed. Pt resting in bed and in no apparent distress. Pt on tele and O2. All safety measures ensure and pt call gunderson near. Pt encouraged to use call gunderson for assistance.
[2018-08-13] MEDS: ATORVASTATIN 20 MG TAB PO SCH (20:51)
[2018-08-13] MEDS: TAMSULOSIN HCL 0.4 MG CAP PO SCH (20:51)
[2018-08-13] MEDS: VANCOMYCIN 1GM/NS 250 ML 250 ML IV SCH (21:50)
--- NOTE | 2018-08-13 23:40 | NUR ---
Pt c/o back pain request Tylenol 3 which is his home med. Pt med was d/c with no notation reason. Called placed to Dr. Herrera who is covering for Dr. Toth.
--- NOTE | 2018-08-14 00:23 | NUR ---
Answering service for Dr. Herrera called, informed no return call from yet. Answering service to re-page .
--- NOTE | 2018-08-14 01:01 | NUR ---
Dr. Herrera returned call. Gave ok for pt to have home med Tylenol #3.
[2018-08-14] MEDS: IPRATROPIUM BROMIDE 0.02% 2.5 ML NEB NEB SCH ×6 (02:45→23:30)
[2018-08-14 04:53] VITALS: BP 97/51
[2018-08-14 06:09] LABS: BASOPHILS % 0.2 % (0.0-1.0); EOSINOPHILS # (AUTO) 0.1 (0.0-0.4); EOSINOPHILS % 1.1 % (0.0-6.0); HEMATOCRIT 29.6 % (38.2-49.6); HEMOGLOBIN 10.1 g/dL (14.0-18.0); LYMPHOCYTES % 15.3 % (18.0-39.1); MEAN CORPUSCULAR HEMOGLOBIN 34.2 pg (28-32); MEAN CORPUSCULAR HGB CONC 34.1 g/dL (31-35); MEAN CORPUSCULAR VOLUME 100.3 fL (81-99); MONOCYTES # (AUTO) 0.9 (0.2-0.8); MONOCYTES % 13.4 % (4.4-11.3); NEUTROPHILS # (AUTO) 4.4 (2.1-6.9); NEUTROPHILS % 68.9 % (38.7-80.0); PLATELET COUNT 150 x10e3/uL (140-360); RED BLOOD COUNT 2.95 x10e6/uL (4.3-5.7); RED CELL DISTRIBUTION WIDTH 13.1 % (11.7-14.4)
[2018-08-14 06:41] LABS: ANION GAP 11.9 mmol/L (8-16); CALCIUM 8.3 mg/dL (8.4-10.2); CREATININE, SERUM 1.44 mg/dL (0.72-1.25); POTASSIUM 3.9 mmol/L (3.5-5.1)
--- NOTE | 2018-08-14 06:52 | NUR ---
RECEIVED PATIENT RESTING IN BED, RESPIRATIONS EVEN AND UNLABORED, NO ACUTE DISTRESS NOTED. PAIN AT A TOLERABLE LEVEL AT THIS TIME. CALL LIGHT WITHIN REACH. BED IN THE LOWEST POSITION.
--- NOTE | 2018-08-14 06:57 | NUR ---
Bedside report and walking rounds complete. Pt resting in bed and in no apparent distress. All safety measured ensured.
[2018-08-14 07:36] VITALS: BP 121/58
[2018-08-14] MEDS: SPIRONOLACTONE 25 MG TAB PO SCH ×3 (09:17→20:31)
[2018-08-14] MEDS: METOPROLOL SUCCINATE 25 MG TAB XL PO SCH ×2 (09:17→16:00)
[2018-08-14] MEDS: FERROUS SULFATE 325 MG TAB PO SCH (09:17)
[2018-08-14] MEDS: ISOSORBIDE MONONITRATE 30 MG TAB CR PO SCH ×2 (09:17→16:00)
[2018-08-14] MEDS: PANTOPRAZOLE SOD 40 MG TABEC PO SCH (09:17)
[2018-08-14] MEDS: BUMETANIDE INJ 0.25MG/ML 4ML VIAL IV SCH ×2 (09:17→16:00)
[2018-08-14] MEDS: CEFEPIME 1GM/NS 0.9% 50 ML 50 ML IV SCH ×2 (09:17→20:31)
[2018-08-14 09:25] VITALS: BP 121/58
[2018-08-14] MEDS: LIDOCAINE 5% PATCH TP SCH (10:00)
--- NOTE | 2018-08-14 10:23 | Progress Note ---
DATE: SUBJECTIVE: The patient is admitted for pneumonia, currently complaining of back pain. His Tylenol No. 3 has been restarted and also the patient is getting a lidocaine patch in that area. The patient continues to have little bit of abdominal pain and dysuria and also increased in lower extremity swelling. OBJECTIVE: VITAL SIGNS: Temperature is 96.1, pulse 95, blood pressure 121/58, and pulse ox of 99%. HEENT: Normocephalic, atraumatic. Pupils are reactive to light and accommodation. CVS: S1 and S2 normal. Regular rhythm. ABDOMEN: Slight tenderness in the suprapubic area. EXTREMITIES: Positive for edema. LABORATORY VALUES: Hemoglobin 10.1 and hematocrit 29.6. Chemistries; sodium 135, potassium is 3.9, BUN of 20, and creatinine of 1.44. ASSESSMENT: 1. Pneumonia. Continue with antibiotics. 2. Volume overload. Continue with IV Lasix. 3. Hyperlipidemia and hypertension. Continue CV medication. Continue to monitor the patient's in's and out's and fluid intake. Continue observing the patient. Further recommendation per clinical course. DISPOSITION: Discharge home with home health and/or SNF depending on progression of the disease process. MD SAPNA Smith/RANDOLPH /[id number]
[2018-08-14 11:22] VITALS: BP 118/63
[2018-08-14 15:32] VITALS: BP 129/59
[2018-08-14] MEDS: ACETAMINOPHEN/CODEINE 300MG - 30MG TAB PO PRN (17:46)
--- NOTE | 2018-08-14 19:03 | NUR ---
REPORT GIVEN TO ONCOMING NURSE, PATIENT IS SITTING UP IN BED. NO ACUTE DISTRESS NOTED. NASAL CANNULA IN PLACE. CALL LIGHT WITHIN REACH. BED IN THE LOWEST POSITION.
--- NOTE | 2018-08-14 19:12 | NUR ---
Beside report and walking rounds complete. Pt resting in bed and in no apparent distress. All safety measures ensured.
[2018-08-14 20:00] VITALS: BP 129/67
[2018-08-14] MEDS: TAMSULOSIN HCL 0.4 MG CAP PO SCH (20:31)
[2018-08-14] MEDS: ATORVASTATIN 20 MG TAB PO SCH (20:31)
[2018-08-14] MEDS: VANCOMYCIN 1GM/NS 250 ML 250 ML IV SCH (21:16)
[2018-08-15] VITALS (7 sets, daily range): BP systolic 96–130; BP diastolic 53–71
[2018-08-15] MEDS: IPRATROPIUM BROMIDE 0.02% 2.5 ML NEB NEB SCH ×6 (03:00→23:25)
--- NOTE | 2018-08-15 07:19 | NUR ---
Beside report and walking rounds complete.
--- NOTE | 2018-08-15 08:21 | NUR ---
Patient up in Bed , had breakfast, not in any distress, call light in reach
[2018-08-15] MEDS: CEFEPIME 1GM/NS 0.9% 50 ML 50 ML IV SCH ×2 (09:22→21:09)
[2018-08-15] MEDS: BUMETANIDE INJ 0.25MG/ML 4ML VIAL IV SCH ×2 (09:22→16:48)
[2018-08-15] MEDS: FERROUS SULFATE 325 MG TAB PO SCH (09:22)
[2018-08-15] MEDS: SPIRONOLACTONE 25 MG TAB PO SCH ×3 (09:22→21:09)
[2018-08-15] MEDS: METOPROLOL SUCCINATE 25 MG TAB XL PO SCH ×2 (09:23→16:40)
[2018-08-15] MEDS: LIDOCAINE 5% PATCH TP SCH (09:23)
[2018-08-15] MEDS: ISOSORBIDE MONONITRATE 30 MG TAB CR PO SCH ×2 (09:23→16:40)
[2018-08-15] MEDS: PANTOPRAZOLE SOD 40 MG TABEC PO SCH (09:23)
--- NOTE | 2018-08-15 12:25 | NUR ---
PT working with patient, patient walking
--- NOTE | 2018-08-15 13:20 | NUR ---
patient ambulating in his room, not in any distress
--- NOTE | 2018-08-15 13:31 | NUR ---
REC'D ORDERS FOR [facility] TODAY CHOICE LETTER SIGNED BY PT FAXED CLINICALS TO JONAS WITH [facility] AT [phone] REC'D CALL BACK AFTER CLINICAL REVIEW STATING PT IS " TOO HIGH LEVEL" FOR ACUTE REHAB CM CALLED AND SPOKE WITH DR AMEZQUITA ORDERS FOR SNF EVAL CM SPOKE WITH PT AND AND EXPLAINED ACUTE REHAB EVAL THEY ARE AGREEABLE WITH SNF S.W. TO F/U
--- NOTE | 2018-08-15 13:37 | Progress Note ---
DATE: SUBJECTIVE: States his dyspnea is better with minimal swelling. Denies any nausea or vomiting. PHYSICAL EXAMINATION: GENERAL: Lying in bed, in no distress with nasal cannula. VITAL SIGNS: Temperature 96.2, pulse 112, blood pressure 130/59. CHEST: Clear, slight diminished breath sounds in the base. EXTREMITIES: Trace 1+ edema. SKIN: No old stasis changes. LABORATORY DATA: Sodium 135, serum CO2 33, creatinine 1.44, BUN 20. ASSESSMENT: Chronic kidney disease stage 3, fluid overload, improving, mild hyponatremia, history of heart failure and chronic kidney injury is improved. Chronic kidney disease is presumed from nephrosclerosis. PLAN: Continue current dose of loop diuretic. I did ask him to be fluid-restricted, especially with his sodium going somewhat low, it appears that his intake is not that high and would leave as the same. He is currently on bumetanide 2 mg IV three times a day and I would leave it as it is. Monitor potassium while he is on spironolactone as it does appear to be climbing, a.m. chemistries will follow along. MD MARQUIS GuzmanK/RANDOLPH /[id number]
--- NOTE | 2018-08-15 14:50 | NUR ---
SPOKE WITH PT AND BEDSIDE ABOUT SNF ORDER AND CHOICES. SIGNED CHOICE FOR [facility] FILED IN CHART AND NOTIFIED REP OF REFERRAL, FAXED CLINICALS [phone], FILLED OUT RTF AND LEFT AT [facility]SES STATION.
--- NOTE | 2018-08-15 15:37 | NUR ---
CM SPOKE TO PATIENT AT BEDSIDE REGARDING IMM LETTER. IMM LETTER GIVEN WITH EXPLANATION BASED ON ANTICIPATED DISCHARGE DATE. ORIGINAL SIGNED AND PLACED IN CHART. PATIENT STATES HE DOES NOT NEED ANYMORE PHYSICAL COPIES AND REFUSED COPY. CM CONTACT INFORMATION GIVEN TO PATIENT FOR ANY NEEDS OR CONCERNS. PATIENT WITH NO FURTHER QUESTIONS.
--- NOTE | 2018-08-15 19:00 | NUR ---
Report and rounds completed. Patient in bed. Call light within reach. No issues or concerns. Will continue to monitor.
[2018-08-15] MEDS: VANCOMYCIN 1GM/NS 250 ML 250 ML IV SCH (21:00)
[2018-08-15] MEDS: ATORVASTATIN 20 MG TAB PO SCH (21:09)
[2018-08-15] MEDS: TAMSULOSIN HCL 0.4 MG CAP PO SCH (21:09)
--- NOTE | 2018-08-15 21:24 | NUR ---
Reported to Dr Toth vanc trough 23.8. Order to hold dose tonight
[2018-08-15] MEDS: ACETAMINOPHEN/CODEINE 300MG - 30MG TAB PO PRN (23:25)
[2018-08-16] VITALS: BP 94/53
[2018-08-16 01:13] VITALS: BP 102/62
[2018-08-16] MEDS: BUMETANIDE INJ 0.25MG/ML 4ML VIAL IV SCH (01:13)
[2018-08-16] MEDS: IPRATROPIUM BROMIDE 0.02% 2.5 ML NEB NEB SCH ×4 (03:05→15:57)
[2018-08-16 04:00] VITALS: BP 107/55
[2018-08-16 05:31] LABS: ANION GAP 12.9 mmol/L (8-16); CALCIUM 9.1 mg/dL (8.4-10.2); CREATININE, SERUM 2.05 mg/dL (0.72-1.25); POTASSIUM 3.9 mmol/L (3.5-5.1)
--- NOTE | 2018-08-16 06:00 | NUR ---
Patient resting in bed, call light within reach. No issues or concerns. Will continue to monitor.
[2018-08-16 08:54] VITALS: BP 116/56
[2018-08-16] MEDS ORDERED: METOPROLOL SUCCINATE 50 MG TAB XL PO SCH (09:00)
--- NOTE | 2018-08-16 09:12 | NUR ---
SPOKE WITH REP FROM [facility] FAC[facility] NOT RECEIVED, ATTEMPTED TO FAX 3 TIMES, SHE CAME TO [facility] WITH [facility] WILL FILE OUR COPY IN CHART.
[2018-08-16] MEDS: CEFEPIME 1GM/NS 0.9% 50 ML 50 ML IV SCH (09:33)
[2018-08-16] MEDS: SPIRONOLACTONE 25 MG TAB PO SCH (09:33)
[2018-08-16] MEDS: PANTOPRAZOLE SOD 40 MG TABEC PO SCH (09:34)
[2018-08-16] MEDS: LIDOCAINE 5% PATCH TP SCH (09:34)
[2018-08-16] MEDS: FERROUS SULFATE 325 MG TAB PO SCH (09:34)
--- NOTE | 2018-08-16 09:42 | NUR ---
Pt stated feeling dizzy when sitting up at bedside, BP 116/56 HR 105. Nurse informed pt not to stand up due to pt wanting to walk with walker. Recheck's BP manually, BP 112/54.
--- NOTE | 2018-08-16 10:24 | NUR ---
PT in room at this time. Pt refused due to "not feeling up to it" BP rechecked auto reading of 103/68, HR 128
--- NOTE | 2018-08-16 10:47 | NUR ---
SPEECH THERAPY- Attempted to see pt for NMES to treat dysaphgia, pt awaiting MD visit, requested deferring tx, will re-attempt later today if time permits. Handoff to CASSIUS Harris
--- NOTE | 2018-08-16 11:47 | Progress Note ---
DATE: 08/16/2018 SUBJECTIVE: Ryne Sky feels a little weak and swelling is mostly gone. OBJECTIVE: VITAL SIGNS: Temperature 96.6, pulse 105, blood pressure 116/56 on recheck. CHEST: Lungs seem clear. EXTREMITIES: Only trace edema. SKIN: No old stasis changes. Evidence of old shingles. LABORATORY DATA: Show worsening creatinine of 2.0, BUN of 29, serum CO2 of 31, sodium 132. ASSESSMENT: 1. Chronic kidney disease, stage 3, increasing creatinine from the necessary diuresis. He has done this before. 2. Satisfactory blood pressure, although per him it may be on the low side. 3. Presumed nephrosclerosis. 4. Mild hyponatremia. 5. Fluid overload, improved. PLAN: Cutback bumetanide to 1 mg twice daily. Cut back the spironolactone as his potassium is climbing. Keep salt and water restricted. Monitor blood pressure flow. We could cut back on the diuretics even further. Recheck chemistry in the morning. No emergent need for dialysis. Avoid nephrotoxins such as NSAIDs. Can Riddle MD VKK/SALEEML /[id number]
[2018-08-16 12:13] VITALS: BP 100/61
--- NOTE | 2018-08-16 12:49 | NUR ---
PT ACCEPTED TO ROOM [address] WESLEY AT [facility]. LET NURSE KNOW PENDING DISCHARGE ORDER FROM DOCTOR AND THEN TO CALL REPORT.
--- NOTE | 2018-08-16 14:22 | Diagnostic Imaging Report ---
Chest, 1 view, 08/16/2018. History: CHF. Comparison: 08/02/2018. Findings: The cardiac silhouette is mildly enlarged but the pulmonary vasculature is within normal limits for a portable exam. Calcified pleural plaques are present at the left lung base with mild blunting of the left costophrenic sulcus. The right lung is clear. Median sternotomy wires and right subclavian catheter are again noted. There are no acute osseous or soft tissue abnormalities. Impression: Cardiomegaly with stable left lower pleural thickening and calcification. No acute findings. Signed by: Lb Garcia on 08/16/2018 2:19 PM
[2018-08-16] MEDS ORDERED: SPIRONOLACTONE 25 MG TAB PO SCH (17:00)
[2018-08-16] MEDS ORDERED: BUMETANIDE INJ 0.25MG/ML 4ML VIAL IV SCH (17:00)
== END 2018-08-16 16:18 | DRG 871 ==
LOC: ER 10:11 → ERHOLD 17:23 → ICU 18:48 → MED/SURG3 08-04 21:40
PROVIDERS: ADMIT Internal Medicine; ATTEND Internal Medicine
PROC: 02HV33Z Insertion of Infusion Device into Superior Vena Cava, Percutaneous Approach (ICD-10-PCS; principal; 2018-08-01)
DX: A41.9 Sepsis, unspecified organism (principal); J18.0 Bronchopneumonia, unspecified organism; N17.0 Acute kidney failure with tubular necrosis; J69.0 Pneumonitis due to inhalation of food and vomit; N17.9 Acute kidney failure, unspecified; J96.11 Chronic respiratory failure with hypoxia; E87.3 Alkalosis; I13.0 Hypertensive heart and chronic kidney disease with heart failure and stage 1 through stage 4 chronic kidney disease, or unspecified chronic kidney disease; E46 Unspecified protein-calorie malnutrition; E87.1 Hypo-osmolality and hyponatremia; N18.3 Chronic kidney disease, stage 3 (moderate); I95.9 Hypotension, unspecified; E78.5 Hyperlipidemia, unspecified; R65.20 Severe sepsis without septic shock; T45.515A Adverse effect of anticoagulants, initial encounter; Z79.01 Long term (current) use of anticoagulants; Z88.5 Allergy status to narcotic agent; Z88.8 Allergy status to other drugs, medicaments and biological substances; I50.9 Heart failure, unspecified; Z82.49 Family history of ischemic heart disease and other diseases of the circulatory system; J44.9 Chronic obstructive pulmonary disease, unspecified; E87.5 Hyperkalemia; S30.0XXA Contusion of lower back and pelvis, initial encounter; I48.2 Chronic atrial fibrillation; J92.0 Pleural plaque with presence of asbestos; I25.10 Atherosclerotic heart disease of native coronary artery without angina pectoris; Z87.891 Personal history of nicotine dependence; Z91.5 Personal history of self-harm; Z95.1 Presence of aortocoronary bypass graft; I25.2 Old myocardial infarction; N25.89 Other disorders resulting from impaired renal tubular function; I73.9 Peripheral vascular disease, unspecified; Z68.25 Body mass index [BMI] 25.0-25.9, adult; N40.1 Benign prostatic hyperplasia with lower urinary tract symptoms; R39.11 Hesitancy of micturition; R53.1 Weakness; S41.101A Unspecified open wound of right upper arm, initial encounter
CPT/HCPCS: 36415; 36555; 36600; 51700; 71045; 71250; 74176; 74230; 80048; 80053; 80162; 80202; 81001; 82550; 82553; 82805; 82948; 83605; 83735; 83880; 84100; 84484; 85025; 85610; 85730; 87040; 93005; 93970; 94640; 97139; 99285; J0692; J1160; J1940; J2405; J2920; J3370; J3480; J7030; J7050; J7512

== ENCOUNTER 2018-08-29 19:50 | Inpatient (IN) | payer MEDICARE ==
[~2018-08-29] VITALS: Ht 167.6 cm; Wt 61.3 kg
[~2018-08-29 19:50] MED LIST changes: +ATORVASTATIN CA80 MG PO; +LISINOPRIL10 MG PO
[2018-08-29] MEDS ORDERED: SODIUM CHLORIDE 0.9% 1000ML 1,000 ML IV ONE (20:30)
--- NOTE | 2018-08-29 21:40 | Diagnostic Imaging Report ---
EXAMINATION: CHEST SINGLE (PORTABLE) INDICATION: ^weakness ^Y COMPARISON: 08/16/2018 FINDINGS: AP view TUBES and LINES: None. LUNGS: Lungs are well inflated. There is no evidence of pneumonia or pulmonary edema. PLEURA: No pneumothorax. Unchanged obscuration of left costophrenic angle and adjacent desiccation. HEART AND MEDIASTINUM: The cardiomediastinal silhouette is mildly enlarged. Again seen median sternotomy wires and mediastinal surgical clips. BONES AND SOFT TISSUES: No acute osseous lesion. Soft tissues are unremarkable. UPPER ABDOMEN: No free air under the diaphragm. IMPRESSION: No acute thoracic abnormality. Unchanged obscuration of the left costophrenic angle and adjacent calcification, likely scarring with calcified pleura. Signed by: Dr. Sachin Calvert MD on 08/29/2018 9:37 PM
[2018-08-29 21:59] LABS: BASOPHILS % 0.4 % (0.0-1.0); EOSINOPHILS % 0.2 % (0.0-6.0); HEMATOCRIT 35.1 % (38.2-49.6); HEMOGLOBIN 11.8 g/dL (14.0-18.0); LYMPHOCYTES # (AUTO) 1.8 (1.0-3.2); LYMPHOCYTES % 22.3 % (18.0-39.1); MEAN CORPUSCULAR HEMOGLOBIN 33.9 pg (28-32); MEAN CORPUSCULAR HGB CONC 33.6 g/dL (31-35); MEAN CORPUSCULAR VOLUME 100.9 fL (81-99); MONOCYTES # (AUTO) 1.1 (0.2-0.8); MONOCYTES % 13.8 % (4.4-11.3); NEUTROPHILS % 61.2 % (38.7-80.0); PLATELET COUNT 238 x10e3/uL (140-360); RED BLOOD COUNT 3.48 x10e6/uL (4.3-5.7); RED CELL DISTRIBUTION WIDTH 13.2 % (11.7-14.4)
[2018-08-29 22:04] LABS: INR 0.86; PROTHROMBIN TIME 12.2 seconds (11.9-14.5)
[2018-08-29 22:05] LABS: PARTIAL THROMBOPLASTIN TIME 29.3 seconds (23.8-35.5)
[2018-08-29 22:08] LABS: BILIRUBIN,URINE SMALL (NEGATIVE); CLARITY,URINE CLEAR (CLEAR); COLOR,URINE YELLOW (YELLOW); KETONES,URINE TRACE (NEGATIVE); LEUKOCYTE ESTERASE ,URINE NEGATIVE (NEGATIVE); NITRITE,URINE NEGATIVE (NEGATIVE); PROTEIN,URINE DIPSTICK TRACE (NEGATIVE); URINE UROBILINOGEN 0.2 mg/dL (0.2 - 1)
[2018-08-29 22:13] LABS: ALBUMIN 3.5 g/dL (3.5-5.0); ALBUMIN/GLOBULIN RATIO 1.3 (0.8-2.0); ANION GAP 18.3 mmol/L (8-16); CALCIUM 9.2 mg/dL (8.4-10.2); CREATININE, SERUM 4.22 mg/dL (0.72-1.25); POTASSIUM 4.3 mmol/L (3.5-5.1)
[2018-08-29 22:20] LABS: BACTERIA,URINE MANY /HPF; EPITHELIAL CELLS,URINE MODERATE /LPF; RBC,URINE 0-5 /HPF (0-5)
[2018-08-29 22:32] LABS: CREATINE KINASE MB 2.4 ng/mL (0-5.0)
[2018-08-29] MEDS ORDERED: ONDANSETRON HCL INJ 2MG/ML 2ML 2 MG/ML VIAL IV PRN (23:00)
--- NOTE | 2018-08-29 23:13 | NUR ---
REVIEWED HOME MEDICINE WITH DR PATRICK, DR PATRICK WILL REFER HOME MEDICATIONS DECISION TO INTERNAL MEDICINE.
[2018-08-29] MEDS ORDERED: SODIUM CHLORIDE 0.9% 250ML 250 ML IV ONE (23:15)
[2018-08-29] MEDS: SODIUM CHLORIDE 0.9% 1000ML 1,000 ML IV SCH (23:38)
[2018-08-30] VITALS (9 sets, daily range): BP systolic 86–117; BP diastolic 55–70
[2018-08-30 05:07] LABS: BASOPHILS % 0.4 % (0.0-1.0); EOSINOPHILS % 0.6 % (0.0-6.0); HEMATOCRIT 31.9 % (38.2-49.6); HEMOGLOBIN 10.4 g/dL (14.0-18.0); LYMPHOCYTES # (AUTO) 1.3 (1.0-3.2); LYMPHOCYTES % 24.2 % (18.0-39.1); MEAN CORPUSCULAR HEMOGLOBIN 33.2 pg (28-32); MEAN CORPUSCULAR HGB CONC 32.6 g/dL (31-35); MEAN CORPUSCULAR VOLUME 101.9 fL (81-99); MONOCYTES # (AUTO) 0.7 (0.2-0.8); MONOCYTES % 12.7 % (4.4-11.3); NEUTROPHILS # (AUTO) 3.2 (2.1-6.9); NEUTROPHILS % 59.6 % (38.7-80.0); PLATELET COUNT 170 x10e3/uL (140-360); RED BLOOD COUNT 3.13 x10e6/uL (4.3-5.7); RED CELL DISTRIBUTION WIDTH 13.2 % (11.7-14.4)
[2018-08-30 05:41] LABS: CREATINE KINASE MB 2.2 ng/mL (0-5.0)
[2018-08-30 06:06] LABS: ALBUMIN 2.6 g/dL (3.5-5.0); ALBUMIN/GLOBULIN RATIO 1.3 (0.8-2.0); ANION GAP 11.5 mmol/L (8-16); CALCIUM 8.1 mg/dL (8.4-10.2); CREATININE, SERUM 3.17 mg/dL (0.72-1.25); POTASSIUM 4.5 mmol/L (3.5-5.1)
[2018-08-30] MEDS ORDERED: METOPROLOL SUCCINATE 25 MG TAB XL PO SCH ×2 (07:00→09:00)
[2018-08-30] MEDS ORDERED: RIVAROXABAN 10 MG TABLET PO SCH (09:00)
[2018-08-30] MEDS: DOXAZOSIN MESYLATE 2 MG TAB PO SCH (09:00)
[2018-08-30] MEDS: PANTOPRAZOLE SOD 40 MG TABEC PO SCH (10:00)
[2018-08-30 10:28] LABS: EOSINOPHILS % (MANUAL) 1 % (0-7); HYPOCHROMASIA SLIGHT; LYMPHOCYTES % (MANUAL) 19 % (19-48); MONOCYTES % (MANUAL) 13 % (3.4-9.0); NEUTROPHILS % (MANUAL) 61 % (40-74); PLATELET ESTIMATE ADEQUATE; PLATELET MORPHOLOGY COMMENT NORMAL; RBC MORPHOLOGY COMMENT NORMAL
--- NOTE | 2018-08-30 11:15 | NUR ---
SPOKE WITH MD AMEZQUITA, MADE AWARE OF LOW BP 86/57, HR 92-105BPM, AND THAT PT REFUSED XARELTO, STATES, HE "DOES NOT TAKE ANYMORE", ORDERS NOTED
[2018-08-30] MEDS: SODIUM CHLORIDE 0.9% 1000ML 1,000 ML IV SCH (12:20)
[2018-08-30 15:36] LABS: CREATINE KINASE MB 2.2 ng/mL (0-5.0)
[2018-08-30] MEDS ORDERED: ATORVASTATIN 20 MG TAB PO SCH (21:00)
--- NOTE | 2018-08-30 21:07 | NUR ---
PATIENT IN BED, AWAKE ALERT ORIENTED, NO DISTRESS NOTED, PUT ALLEVYN DRESSING TO SACRUM, HE DENIED ANY PAIN AT THIS TIME. WILL CONTINUE TO MONITOR.
[2018-08-31] VITALS (9 sets, daily range): BP systolic 108–136; BP diastolic 62–82
[2018-08-31] MEDS: ACETAMINOPHEN/CODEINE 300MG - 30MG TAB PO PRN (00:08)
[2018-08-31] MEDS: SODIUM CHLORIDE 0.9% 1000ML 1,000 ML IV SCH ×2 (01:53→16:32)
[2018-08-31 05:57] LABS: BASOPHILS % 0.9 % (0.0-1.0); EOSINOPHILS % 0.9 % (0.0-6.0); HEMATOCRIT 33.7 % (38.2-49.6); HEMOGLOBIN 10.9 g/dL (14.0-18.0); LYMPHOCYTES # (AUTO) 1.2 (1.0-3.2); LYMPHOCYTES % 26.9 % (18.0-39.1); MEAN CORPUSCULAR HEMOGLOBIN 33.3 pg (28-32); MEAN CORPUSCULAR HGB CONC 32.3 g/dL (31-35); MEAN CORPUSCULAR VOLUME 103.1 fL (81-99); MONOCYTES # (AUTO) 0.7 (0.2-0.8); MONOCYTES % 17.2 % (4.4-11.3); NEUTROPHILS # (AUTO) 2.2 (2.1-6.9); NEUTROPHILS % 51.8 % (38.7-80.0); PLATELET COUNT 163 x10e3/uL (140-360); RED BLOOD COUNT 3.27 x10e6/uL (4.3-5.7); RED CELL DISTRIBUTION WIDTH 12.9 % (11.7-14.4)
[2018-08-31 06:14] LABS: ALBUMIN 2.5 g/dL (3.5-5.0); ALBUMIN/GLOBULIN RATIO 1.3 (0.8-2.0); ANION GAP 9.1 mmol/L (8-16); CALCIUM 8.1 mg/dL (8.4-10.2); CREATININE, SERUM 1.61 mg/dL (0.72-1.25); POTASSIUM 4.1 mmol/L (3.5-5.1)
[2018-08-31] MEDS: DOXAZOSIN MESYLATE 2 MG TAB PO SCH (08:43)
[2018-08-31] MEDS: PANTOPRAZOLE SOD 40 MG TABEC PO SCH (08:43)
--- NOTE | 2018-08-31 09:18 | NUR ---
EDUCATED ABOUT IMM, SIGNED, FILED IN CHART, WITH COPY LEFT WITH FAMILY AT BEDSIDE.
--- NOTE | 2018-08-31 16:49 | NUR ---
Nutrition Screen Note RD Recommendation for Physician: -Continue current diet as ordered Plan of Care: RD following, monitoring for tolerance and adequacy, diet education Nutrition reason for involvement: Diagnosis Primary Diagnose(s): acute on chronic renal failure, chronic Afib PMH: COPD, NV, Afib, renal failure, BPH, HLD Ht: 66in Wt: 148lb BMI: 23.9kg/m2 IBW: 142lb RD Assessment: (08/31) Chart reviewed. Labs and meds reviewed. 87yo M, who was admitted for renal failure. Renal function has improved. Visited pt in the room. Pt reported fair appetite. No complains of nausea or vomiting. Pt denied any chewing or swallowing difficulty. No recent weight loss reported. 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 Will continue to monitor and follow. Current Diet: cardiac diet Malnutrition Evaluation (08/31/2018) The patient does not meet criteria for a specified degree of malnutrition at this time. Will re-evaluate at follow-up as appropriate. Diet Education Needs Assessment: Diet education indicated, pt and were agreeable. Provided handouts on CKD diet as requested. Nutrition Care Level: low Signed: Carlota Bustillo, MS, RD, LD
--- NOTE | 2018-08-31 19:00 | NUR ---
Report received from AM CASSIUS Soler. Patient received resting on her bed. Denied pain and no SOB. Respiration even and unlabored.Continued on 2liters oxygen via nasal canula. Family at the bedside. Bed in lower position,locked. Call gunderson within reach. Patient instructed to call for help as needed,verbalized and understand. Will continue to monitor Addendum: 09/01/18 at 0642 by Rachana Murray RN wrong charting.
[2018-08-31] MEDS: ATORVASTATIN 40 MG TAB PO SCH (20:30)
--- NOTE | 2018-08-31 20:40 | NUR ---
Patient assisted to go to bathroom with using walker,had a BM at this time. Assisted patient to back in bed. Patient tolerated well. V/S WNL. Will continue to monitor.
[2018-09-01] VITALS (7 sets, daily range): BP systolic 108–139; BP diastolic 55–92
[2018-09-01] MEDS: ACETAMINOPHEN/CODEINE 300MG - 30MG TAB PO PRN (01:28)
[2018-09-01] MEDS: SODIUM CHLORIDE 0.9% 1000ML 1,000 ML IV SCH (04:37)
--- NOTE | 2018-09-01 06:41 | NUR ---
Report given to oncoming CASSIUS Hubbard.
--- NOTE | 2018-09-01 06:42 | NUR ---
Report received from AM RN Stevie. Patient received resting on her bed. Denied pain and no SOB. Respiration even and unlabored.Continued on 2liters oxygen via nasal canula. Family at the bedside. Bed in lower position,locked. Call gunderson within reach. Patient instructed to call for help as needed,verbalized and understand. Will continue to monitor
[2018-09-01 06:47] LABS: ALANINE AMINOTRANSFERASE 18 IU/L (0-55); ALBUMIN 2.5 g/dL (3.5-5.0); ALBUMIN/GLOBULIN RATIO 1.3 (0.8-2.0); ALKALINE PHOSPHATASE 83 IU/L (40-150); ANION GAP 7.2 mmol/L (8-16); BLOOD UREA NITROGEN 29 mg/dL (7-26); BUN/CREATININE RATIO 26 (6-25); CALCIUM 8.2 mg/dL (8.4-10.2); CARBON DIOXIDE 22 mmol/L (22-29); CHLORIDE 113 mmol/L (98-107); CREATININE, SERUM 1.11 mg/dL (0.72-1.25); EST GLOMERULAR FILTRATION RATE > 60 ML/MIN (60-); GLUCOSE 85 mg/dL (74-118); POTASSIUM 4.2 mmol/L (3.5-5.1); SODIUM 138 mmol/L (136-145)
[2018-09-01] MEDS: PANTOPRAZOLE SOD 40 MG TABEC PO SCH (08:36)
[2018-09-01] MEDS: DOXAZOSIN MESYLATE 2 MG TAB PO SCH (08:36)
--- NOTE | 2018-09-01 16:08 | NUR ---
patient transferred to floor. report called. all personal belongings gathered by . vitals stable with no distress.
--- NOTE | 2018-09-01 16:10 | NUR ---
RECEIVED PATIENT FROM [facility]. PATIENT A/O X3, EVEN RESPIRATIONS ON 2LNC. BOWEL SOUNDS ACTIVE, SKIN INTACT, NO EDEMA. PATIENT AMBULATES WITH WALKER. NO PAIN AT THIS TIME. RIGHT FA 20 GAUGE IV WITH NS @ 75 CC/HR. TELEMETRY #9 A FIB. CALL LIGHT IN REACH, AT BEDSIDE, WILL CONTINUE TO MONITOR PATIENT.
[2018-09-01] MEDS ORDERED: ONDANSETRON HCL 4 MG ORAL DISINTEGRATING TAB PO PRN (17:30)
[2018-09-01] MEDS: RIVAROXABAN 20 MG TABLET PO SCH (17:35)
[2018-09-01] MEDS: ATORVASTATIN 40 MG TAB PO SCH (21:59)
[2018-09-02] MEDS: ACETAMINOPHEN/CODEINE 300MG - 30MG TAB PO PRN (00:49)
[2018-09-02 04:15] VITALS: BP 122/65
--- NOTE | 2018-09-02 07:00 | NUR ---
BEDSIDE ROUNDS COMPLETE NO DISTRESS NOTED, UPDATED ON POC VOICED UNDERSTANDING, DENIES PAIN AT THIS TIME, R FA 20G NO SS OF INFILTRATION NOTED, NO OTHER CO VOICED CALL LIGHT IN REACH WILL CONTINUE TO MONITOR
[2018-09-02 10:00] VITALS: BP 122/65
[2018-09-02] MEDS: DOXAZOSIN MESYLATE 2 MG TAB PO SCH (10:00)
[2018-09-02] MEDS: PANTOPRAZOLE SOD 40 MG TABEC PO SCH (10:00)
[2018-09-02 12:44] VITALS: BP 115/62
[2018-09-02 16:31] VITALS: BP 145/78
[2018-09-02] MEDS: RIVAROXABAN 20 MG TABLET PO SCH (17:31)
--- NOTE | 2018-09-02 19:00 | NUR ---
PT HAD SHOWER, PT HR 120-150 TELEMETRY SHOWING AFIB WITH OCCASIONAL PVC'S, DENIES SOB, DENIES CHEST PAIN SPOKE WITH DR AMEZQUITA RE; HEARTRATE ORDERS FOR CONSULT DR SANCHEZ, AND RESTART METOPROLOL.
--- NOTE | 2018-09-02 19:11 | NUR ---
WALKING ROUNDS PERFORMED, RECEIVED PT LAYING SEMI FOWLERS IN BED, AAOX3, RR EVEN AND NON-LABORED, O2 BY NC AT 2L. NO S/S OF DISTRESS NOTED. LEFT PT LAYING SEMI FOWLERS IN BED, BED IN LOW LOCKED POSITION, SIDE RAILS UPX2, CALL LIGHT AND PHONE WITHIN REACH.
--- NOTE | 2018-09-02 19:21 | NUR ---
CONSULTATION CALLED TO MD SANCHEZ. WAITING FOR CALLBACK.
[2018-09-02 19:48] VITALS: BP 123/77
[2018-09-02 20:00] VITALS: BP 123/77
[2018-09-02] MEDS: METOPROLOL SUCCINATE 50 MG TAB XL PO SCH (20:18)
[2018-09-02] MEDS: ATORVASTATIN 40 MG TAB PO SCH (20:19)
[2018-09-03] VITALS (8 sets, daily range): BP systolic 115–140; BP diastolic 65–86
--- NOTE | 2018-09-03 07:20 | NUR ---
RECEIVED PT IN BED RESTING, STABLE CONDITION,DENIES PAIN AT THIS TIME, R FA 20G NO SS OF INFILTRATION NOTED, NO OTHER CO VOICED CALL LIGHT IN REACH WILL CONTINUE TO MONITOR
[2018-09-03] MEDS: PANTOPRAZOLE SOD 40 MG TABEC PO SCH (09:22)
[2018-09-03] MEDS: DOXAZOSIN MESYLATE 2 MG TAB PO SCH (09:22)
[2018-09-03] MEDS: METOPROLOL SUCCINATE 50 MG TAB XL PO SCH ×2 (09:23→17:56)
[2018-09-03] MEDS ORDERED: RIVAROXABAN 15 MG TABLET PO SCH (17:00)
--- NOTE | 2018-09-03 19:09 | NUR ---
WALKING ROUNDS PERFORMED, RECEIVED PT SITTING IN HARD BACK CHAIR, AAOX3, RR EVEN AND NON-LABORED, O2 BY NC AT 1.5L. NO S/S OF DISTRESS NOTED. LEFT PT SITTING IN CHAIR WITH CALL LIGHT WITHIN REACH.
[2018-09-03] MEDS: ATORVASTATIN 40 MG TAB PO SCH (20:47)
[2018-09-04] VITALS: BP 134/66
[2018-09-04 04:00] VITALS: BP 138/68
--- NOTE | 2018-09-04 07:09 | NUR ---
pt alert resp even and unlabored this time no distress noted, pt has no c/o pain when asked, pt able to make needs known, call light in reach.
[2018-09-04 08:20] VITALS: BP 150/63
[2018-09-04] MEDS: PANTOPRAZOLE SOD 40 MG TABEC PO SCH (09:06)
[2018-09-04] MEDS: DOXAZOSIN MESYLATE 2 MG TAB PO SCH (09:06)
[2018-09-04] MEDS: METOPROLOL SUCCINATE 50 MG TAB XL PO SCH (09:06)
--- NOTE | 2018-09-04 11:20 | NUR ---
pt discharge home with prescription, pt and was educated on, both verbalized understanding medication, pt was asked to follow up with his PCP, pt iv site removed at this time, no swelling no redness to site.
--- NOTE | 2018-09-04 17:37 | Consultation ---
DATE OF CONSULTATION: 09/03/2018 CARDIOLOGY CONSULTATION Thank you so much for asking me see Mr. Sky again in consultation. He is a very elderly 87-year-old man with end-stage COPD, coronary artery disease, and chronic atrial fibrillation. He has returned from skilled care with hypotension on the . HISTORY OF PRESENT ILLNESS: The patient tells me that he was taking Lasix twice every day and felt that he was getting somewhat dehydrated. Consultation is asked at this time for tachycardia. His metoprolol was withheld when he was hypotensive. PAST MEDICAL HISTORY: Long and complex with previous hospitalizations at [facility] earlier this year with COPD, shingles, and recurrent pneumonia, repeat hospitalization. His first myocardial infarction was in 1970, coronary artery bypass graft surgery in 1991, longstanding hypertension, hyperlipidemia and mild renal insufficiency. He has now chronic atrial fibrillation. Has end-stage COPD. He had brachytherapy of a stent in circumflex coronary artery. He had right rotator cuff repair in 2011. Basal cell carcinoma removed from the left latter-day region in 2011 and distal right coronary artery stent in 2013. MEDICATIONS: Previous home medications include; lisinopril 5 mg daily, metoprolol 50 mg twice daily, doxazosin 2 mg daily, Lipitor 40 mg daily, isosorbide mononitrate 60 mg twice a day, omeprazole 20 mg daily, atorvastatin 40 mg daily. Apparently was recently using furosemide twice a day. His Xarelto was previously held during recent hospitalizations and was felt to be over anticoagulated. FAMILY HISTORY: Father at age 86. Mother at 64, myocardial infarction. He had one sister of myocardial infarction. PERSONAL AND SOCIAL HISTORY: He does not smoke for many years. PHYSICAL EXAMINATION: GENERAL: At this time shows a thin, elderly white man, who is alert, oriented. VITAL SIGNS: Current blood pressure is 115/72, pulse 84 and regular. HEAD, EYES, EARS, NOSE, AND THROAT: Remarkable for nasal cannula oxygen. THORAX: There is healed midline sternotomy. HEART: Sounds S1, S2 are equal, irregular, irregular. No distinct murmur. LUNGS: Distant breath sounds. No wheezing or rhonchi. CURRENT LABORATORY STUDIES: Show a creatinine of 1.11, glucose 85. Hemoglobin 10.9, platelets 164,000. INR 0.86. ASSESSMENT: 1. End-stage chronic obstructive pulmonary disease. 2. Chronic atrial fibrillation with rates faster after withholding metoprolol. 3. Anemia. 4. Coronary artery disease complex after previous bypass and stenting, clinically without angina. PLAN: Agree with current management. Suggest we reduce rivaroxaban to 15 mg daily. We will follow along closely with you. Thank you for asking me to see him in consultation. MD CAMI Sampson/RANDOLPH /[id number]
--- NOTE | 2018-09-07 04:58 | Discharge Summary ---
DISCHARGE DIAGNOSES: 1. Acute renal failure on chronic kidney disease stage 3. 2. Chronic atrial fibrillation. 3. Chronic systolic heart failure. 4. Hypertension. HISTORY OF PRESENT ILLNESS: The patient is a gentleman, who presented with just overall being in weakness. He was presented to the emergency room, where he was noticed to have evidence of acute renal failure, most likely secondary to recent diuretic therapy at a skilled nursing, so the patient was admitted and was then placed on IV fluids with complete resolution of the acute renal failure back to his baseline chronic kidney disease stage 3. The patient remained in chronic AFib. Had some episodes of RVR when he was held off his metoprolol because initially came in with low blood pressures. Once that was restarted, his heart rate improved, even though he has remained in chronic AFib. He was seen by Dr. Powell, his core shaper while he was here. At the time of discharge, he is doing much better. He will follow up with me in 1 to 2 weeks to reassess his blood work as well as his overall status. He continues to get worse. The patient was told to come back to the emergency room. Please see hospital chart for full details. MD LM Sifuentes/RANDOLPH /[id number]
== END 2018-09-04 11:19 | disposition home or self-care (01) | DRG 683 ==
LOC: ER 19:50 → ERHOLD 22:58 → IMCU 08-30 → MED/SURG 09-01 16:00
PROVIDERS: ADMIT Internal Medicine; ATTEND Internal Medicine
DX: N17.9 Acute kidney failure, unspecified (principal); I13.0 Hypertensive heart and chronic kidney disease with heart failure and stage 1 through stage 4 chronic kidney disease, or unspecified chronic kidney disease; I50.22 Chronic systolic (congestive) heart failure; E87.1 Hypo-osmolality and hyponatremia; I48.2 Chronic atrial fibrillation; N18.3 Chronic kidney disease, stage 3 (moderate); Z95.1 Presence of aortocoronary bypass graft; Z95.5 Presence of coronary angioplasty implant and graft; K21.9 Gastro-esophageal reflux disease without esophagitis; N40.0 Benign prostatic hyperplasia without lower urinary tract symptoms; E78.5 Hyperlipidemia, unspecified; Z82.49 Family history of ischemic heart disease and other diseases of the circulatory system; E87.8 Other disorders of electrolyte and fluid balance, not elsewhere classified; E86.0 Dehydration; Z88.5 Allergy status to narcotic agent; Z88.8 Allergy status to other drugs, medicaments and biological substances; D63.1 Anemia in chronic kidney disease; J44.9 Chronic obstructive pulmonary disease, unspecified; I95.9 Hypotension, unspecified; T50.2X5A Adverse effect of carbonic-anhydrase inhibitors, benzothiadiazides and other diuretics, initial encounter
CPT/HCPCS: 36415; 71045; 80053; 81001; 82550; 82553; 82948; 83605; 83735; 84484; 85025; 85610; 85730; 87086; 93005; 99284; J7030; J7050

== ENCOUNTER 2019-09-14 11:22 | Emergency (ER) | payer MEDICARE ==
[~2019-09-14] VITALS: Ht 167.6 cm; Wt 61.2 kg
[2019-09-14] MEDS ORDERED: SODIUM CHLORIDE 0.9% 1000ML 1,000 ML IV STA (12:18)
[2019-09-14] MEDS ORDERED: CEFEPIME 1GM/NS 0.9% 50 ML 50 ML IV STA (12:18)
[2019-09-14] MEDS ORDERED: ACETAMINOPHEN 325 MG TAB PO ONE (12:30)
--- NOTE | 2019-09-14 12:43 | Emergency Department Note ---
History of Present Illnes History of Present Illness Chief Complaint: COVID PUI History of Present Illness This is a 88 year old male arrives to the ED with complaints of cough fever chills and fast heart rate for 1 day. Patient sent to the ER from primary care doctor with concerns of possible Covid 19 infection. . Chief Complaint Comment HESENT BY DR. AMEZQUITA FOR CHILLS, FEVER AND TACHYCARDIA SINCE YESTERDAY. DENIES URINARY ISSUE. DENIES COUGH, SHORTENSS OF BREATH OUT OF THE USUAL. Historian: Patient Arrival Mode: Car Onset (how long ago): hour(s) Radiation: Reports non-radiation Onset quality: gradual Duration (how long): hour(s) Timing of current episode: constant Progression: worsening Chronicity: new Context: Denies recent illness Past Medical/Family History Physician Review I have reviewed the patient's past medical and family history. Any updates have been documented here. 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 Nephrosclerosis. Coronary artery disease, status post prior [place]. CABG in 1981 as well as history of occluded grafts and treatment of in-stent restenosis. BPH. GERD. Unstable angina. Chronic kidney disease. Hyperlipidemia. Past Surgical History: CABG Other Surgery: CABGX3 6 STENTS Social History Smoking Cessation: Never Smoker Counseling Performed: No Alcohol Use: None Any Illegal Drug Use: No TB Exposure/Symptoms: No Physically hurt or threatened: No Other Last Tetanus: UTD Any Pre-Existing Lines (PICC,: No Is patient up to date on immun: Yes Last Flu: UTD Last Pneumovax: UTD Review of Systems Review of Systems Constitutional: Reports no symptoms EENTM: Reports no symptoms Cardiovascular: Reports as per HPI Respiratory: Reports as per HPI, Reports dyspnea, Reports dyspnea on exertion Gastrointestinal: Reports no symptoms Genitourinary: Reports no symptoms Musculoskeletal: Reports no symptoms Integumentary: Reports no symptoms Neurological: Reports no symptoms Psychological: Reports no symptoms Endocrine: Reports no symptoms Hematological/Lymphatic: Reports no symptoms Physical Exam Related Data Allergies: Coded Allergies: meperidine HCl (Verified Allergy, Severe, FAINT, 04/27/18) nalbuphine HCl (Verified Allergy, Severe, FAINT, 04/27/18) morphine (Verified Allergy, Intermediate, FAINT, 04/27/18) Triage Vital Signs Vital Signs Date Time Temp Pulse Resp B/P (MAP) Pulse Ox O2 Delivery O2 Flow Rate FiO2 09/14/19 11:25 100.9 129 32 121/98 09/14/19 11:52 94 Vital signs reviewed: Yes Physical Exam CONSTITUTIONAL Constitutional: Present well-developed, Present well-nourished, Present ill appearing HENT HENT: Present normocephalic, Present atraumatic, Present oropharynx clear/moist, Present nose normal HENT L/R: Present left ext ear normal, Present right ext ear normal EYES Eyes: Reports PERRL, Reports conjunctivae normal NECK Neck: Present ROM normal PULMONARY Pulmonary: Present effort normal, Present respiratory distress CARDIOVASCULAR Cardiovascular: Present regular rhythm, Present capillary refill normal, Present tachycardia GASTROINTESTINAL Abdominal: Present soft, Present nontender, Present bowel sounds normal GENITOURINARY Genitourinary: Present exam deferred SKIN Skin: Present warm, Present dry MUSCULOSKELETAL Musculoskeletal: Present ROM normal NEUROLOGICAL Neurological: Present alert, Present oriented x 3, Present no gross motor or sensory deficits PSYCHOLOGICAL Psychological: Present mood/affect normal, Present judgement normal Results Laboratory Lab results reviewed: Yes Imaging Imaging results reviewed: Yes Impressions IMPRESSION: New patchy opacities at the right mid lung and left lung base, concerning for pneumonia in the proper clinical setting. Small left pleural effusion. Procedures 12 Lead ECG Interpretation ECG Interpretation : ECG: ECG 1 Senior Firmware Engineer: Interpreted by ED physician Prior ECG tracings: reviewed Rhythm: atrial fibrillation QRS axis: left ST segments normal: Yes T wave inversion: V1-V6 Other findings: no other findings Clinical Impression: abnormal ECG Critical Care Time Total Critical Care Time (min): 35 Critical care time exclusive o: separately billable procedures Critcal care necessary due to: sepsis Assessment & Plan Medical Decision Making MDM 88-year-old male with the ED with complaints of cough chills. Concerns of possible Covid 19 infection. Patient noted bilateral pneumonias. Patient covered with broad-spectrum IV antibiotics. Patient required transfer to [facility] secondary to capacity PMC. Assessment & Plan Final Impression: (1) Severe sepsis (2) Pneumonia (3) Pneumonia (4) Acute on chronic renal failure Depart Disposition: TRANS TO OTHER [facility] Last Vital Signs Date Time Temp Pulse Resp B/P (MAP) Pulse Ox O2 Delivery O2 Flow Rate FiO2 09/14/19 12:21 113 26 118/83 99 09/14/19 11:52 101.5 Home Meds Reported Medications Furosemide (FUROSEMIDE) 40 Mg Tablet, 20 MG PO Daily, #30 TAB 09/14/19 Omeprazole (OMEPRAZOLE) 20 Mg Tablet.dr, 20 MG PO DAILY 04/27/18 Doxazosin Mesylate (DOXAZOSIN MESYLATE) 2 Mg Tablet, 2 MG PO DAILY, #30 TAB 04/27/18 Atorvastatin Calcium (ATORVASTATIN CALCIUM) 20 Mg Tablet, 40 MG PO HS, TAB 07/18/14 Nitroglycerin (NITROGLYCERIN) 0.4 Mg Tab.subl, 0.4 MG SL Q5MIN, TAB 07/17/14 Rivaroxaban (XARELTO) 10 Mg Tablet, 20 MG PO DAILY 07/15/14 Metoprolol Succinate (METOPROLOL SUCCINATE) 25 Mg Tab.er.24h, 50 MG PO BID 07/15/14 Isosorbide Mononitrate (ISOSORBIDE MONONITRATE ER) 60 Mg Tab.er.24h, 60 MG PO BID 07/15/14 Discontinued Reported Medications Acetaminophen/Codeine* (TYLENOL # 3*) 1 Ea Tab 04/27/18 Ferrous Sulfate (FERROUS SULFATE) 325 Mg Tablet, 325 MG PO DAILY 04/27/18 Lisinopril (LISINOPRIL) 5 Mg Tablet, PO DAILY 07/15/14 Medications in the ED Sodium Chloride 1,000 ml @ 0 mls/hr Q0M STAT IV ; Start 09/14/19 at 12:18; Stop 09/14/19 at 12:21; Status DC Cefepime HCl 50 ml @ 50 mls/hr ONCE STAT IV ; Start 09/14/19 at 12:18; Stop 09/14/19 at 13:17; Status UNV Acetaminophen 650 mg ONCE ONCE PO ; Start 09/14/19 at 12:30; Stop 09/14/19 at 12:31; Status UNV JOE NUÑEZ DO Sep 14, 2019 12:43
[2019-09-14 12:58] LABS: BASOPHILS % 0.2 % (0.0-1.0); HEMATOCRIT 49.9 % (38.2-49.6); HEMOGLOBIN 16.6 g/dL (14.0-18.0); LYMPHOCYTES # (AUTO) 0.5 (1.0-3.2); LYMPHOCYTES % 3.6 % (18.0-39.1); MEAN CORPUSCULAR HGB CONC 33.3 g/dL (31-35); MEAN CORPUSCULAR VOLUME 96.1 fL (81-99); MONOCYTES # (AUTO) 0.6 (0.2-0.8); MONOCYTES % 4.3 % (4.4-11.3); NEUTROPHILS # (AUTO) 12.2 (2.1-6.9); NEUTROPHILS % 89.8 % (38.7-80.0); PLATELET COUNT 108 x10e3/uL (140-360); RED BLOOD COUNT 5.19 x10e6/uL (4.3-5.7); RED CELL DISTRIBUTION WIDTH 13.4 % (11.7-14.4)
[2019-09-14 13:08] LABS: ALBUMIN 2.8 g/dL (3.5-5.0); ALBUMIN/GLOBULIN RATIO 0.8 (0.8-2.0); ANION GAP 16.6 mmol/L (8-16); CALCIUM 8.8 mg/dL (8.4-10.2); CREATININE, SERUM 1.42 mg/dL (0.72-1.25); POTASSIUM 4.6 mmol/L (3.5-5.1)
[2019-09-14 13:15] LABS: CREATINE KINASE MB 3.3 ng/mL (0-5.0)
[2019-09-14 13:28] LABS: B-TYPE NATRIURETIC PEPTIDE2 513.3 pg/mL (0-100)
[2019-09-14] MEDS ORDERED: FUROSEMIDE40 MG PO (13:47)
--- NOTE | 2019-09-14 13:53 | Diagnostic Imaging Report ---
EXAMINATION: CHEST SINGLE (PORTABLE) INDICATION: Fever COMPARISON: Chest radiograph 08/29/2018 FINDINGS: LINES/TUBES:EKG leads overlie the chest. LUNGS:The lungs are moderately inflated. New patchy opacities at the right mid lung and left lung base. PLEURA:Small left pleural effusion. No pneumothorax. MEDIASTINUM:The cardiomediastinal silhouette appears unchanged in size and shape. Postoperative findings of prior CABG. BONES/SOFT TISSUES:No acute osseous injury. Sternotomy wires in place. ABDOMEN:No free air under the diaphragm. IMPRESSION: New patchy opacities at the right mid lung and left lung base, concerning for pneumonia in the proper clinical setting. Small left pleural effusion. Signed by: Titus Wall MD on 09/14/2019 1:50 PM
[2019-09-14] MEDS ORDERED: VANCOMYCIN 1GM/NS 250 ML 250 ML IV ONE (14:30)
--- NOTE | 2019-09-14 17:41 | NUR ---
PT TO BE TX DOWNTOWN TO [facility]
--- NOTE | 2019-09-14 18:04 | NUR ---
REPORT CALLED TO CASSIUS PEREZ FOR [facility] RM [id number]. [phone]
== END 2019-09-14 18:26 | disposition other institution (70) ==
LOC: ER 11:22
DX: R50.9 Fever, unspecified (principal); R05 Cough; R65.20 Severe sepsis without septic shock; J18.9 Pneumonia, unspecified organism; N17.9 Acute kidney failure, unspecified; Z11.59 Encounter for screening for other viral diseases
CPT/HCPCS: 36415; 71045; 80053; 82550; 82553; 83605; 83880; 84484; 85025; 85730; 87040; 87086; 87635; 93005; 99284; J0692; J3370; J7030